=== PATIENT | male | born 1960 | race Caucasian/White ===

== ENCOUNTER 2019-06-06 13:52 | Inpatient (IN) | payer OTHER, SELFPAY ==
[2019-06-06] VITALS (22 sets, daily range): BP systolic 96–129; BP diastolic 51–97; PULSE 28–102; RESP 15–103; TEMP 36.3–36.8; O2SAT 86–98; BMI 28.8; BMI 27.1; BMI 27.2
--- NOTE | 2019-06-06 13:57 | EKG12_ITS ---
Test Reason : SOB/SKIAGRAPHER Blood Pressure : / mmHG Vent. Rate : 102 BPM Atrial Rate : 102 BPM P-R Int : 140 ms QRS Dur : 096 ms QT Int : 386 ms P-R-T Axes : 029 028 009 degrees QTc Int : 503 ms Sinus tachycardia with Premature supraventricular complexes Nonspecific ST abnormality Abnormal ECG Confirmed by PASCUAL HENLEY, JOMAR ([id number]), web editor JOSE LUNA ([id number]) on 06/12/2019 4:17:31 PM Referred By: MAHAD Confirmed By:YODIT GARNER MD
--- NOTE | 2019-06-06 14:20 | RAD_ITS ---
EXAM DESCRIPTION: PA and lateral chest CLINICAL HISTORY: 58 years Male, FEVER, FEEL TERRIBLE AND COUGH X 10 DAYS, DIZZY FEVER, FEEL TERRIBLE AND COUGH X 10 DAYS, DIZZY COMPARISON: None FINDINGS: The thorax is intact. The heart and mediastinum appear to be within normal limits. A mild patchy left perihilar infiltrate is identified and the basilar alveolar infiltrates are also seen suspicious for pneumonic infiltrates. RAD/Chest PA and Lateral IMPRESSION: Patchy alveolar infiltrate suspicious for early pneumonic infiltrates are seen in the left hilar region and both lung bases. Electronically Signed: Volodymyr Collins, at 15:35 EST Tel , Service support ,
--- NOTE | 2019-06-06 14:21 | EKG12_ITS ---
Test Reason : Blood Pressure : / mmHG Vent. Rate : 131 BPM Atrial Rate : 131 BPM P-R Int : 138 ms QRS Dur : 090 ms QT Int : 286 ms P-R-T Axes : 037 041 -21 degrees QTc Int : 422 ms Somatic/ Motion Artifact Sinus tachycardia Low Voltage QRS (Limb Leads) Nonspecific ST and T wave abnormality Abnormal ECG Confirmed by JUNIOR HENLEY, NIKKI ([id number]), editor at large HU KNIGHT ([id number]) on 06/12/2019 1:51:19 PM Referred By: ALEJO Confirmed By:NIKKI PACHECO MD
--- NOTE | 2019-06-06 14:33 | ED.RN ---
NO OLD EKG
[2019-06-06 14:40] LABS: Absolute Lymphocyte Count 1.12 X10^3/uL (0.83-4.51); Absolute Neutrophil Count 6.6 X10^3/uL (2.0-7.7); Basophil# 0.02 X10^3/uL; Basophil% 0.2 % (0-1); Eosinophil# 0.04 X10^3/uL; Eosinophils% 0.5 % (0-5); Hematocrit 37.7 % (40-54); Hemoglobin 13.5 g/dL (13.0-16.5); Lymphocyte # 1.12 X10^3/ul (4.0); Lymphocyte % 13.6 % (19-41); Mean Corp Hgb Conc 35.8 g/dL (32-36); Mean Corpuscular Hgb 42.6 pg (27.0-32.0); Mean Corpuscular Volume 118.9 fL (80-94); Mean Platelet Vol. 10.2 fl (6.2-12.0); Monocyte# 0.36 X10^3/uL; Monocyte% 4.4 % (0-10); NRBC Flagged by Analyzer 0 % (0-5); Neutrophil # 6.56 X10^3/uL (2.7-7.7); POSITIVE COUNT YES; POSITIVE MORPHOLOGY YES; RBC Distribution Width CV 12.4 % (11.6-14.6); RBC Distribution Width SD 55.4 fl (35.1-43.9); Red Blood Count 3.17 M/mm3 (4.6-6.2); White Blood Count 8.2 K/mm3 (4.4-11.0)
[2019-06-06] MEDS: 0.9% Normal Saline 1,000 ML 999 ML IV (14:40)
[2019-06-06] MEDS: Ceftriaxone 1 GM/50 ML BAG IV (14:40)
[2019-06-06 14:43] LABS: International Normalized Ratio 1.1; Prothrombin Time (Protime)PT. 14.3 SECONDS (11.7-14.9)
[2019-06-06 14:44] LABS: Partial Thromboplast Time 38.7 Seconds (24.1-36.2)
[2019-06-06 14:52] LABS: ALB/GLOB Ratio 0.5 RATIO (0.9-2.4); AST(SGOT) 76 U/L (15-37); Alanine Aminotransfer ALT/SGPT 73 U/L (16-61); Albumin, Serum 2.8 g/dL (3.2-5.0); Alkaline Phosphatase 143 U/L (45-117); Anion Gap 11 (5-15); BUN 126 mg/dL (7-18); BUN/Creat Ratio 22.1 RATIO (10-20); Calcium,Total 9.4 mg/dL (8.5-10.1); Chloride 101 mmol/L (98-107); Creatinine, Serum 5.71 mg/dL (0.70-1.30); EST Glomerular Filtration Rate 11 mL/min (>60); Est Glom Filt Rate - Afr Amer 13 mL/min (>60); Estimated Creatinine Clearance 16.13 ml/min; Globulin 5.3 g/dL (2.2-4.2); Glucose 132 mg/dL (74-106); Potassium 2.9 mmol/L (3.5-5.1); Protein, Total 8.1 g/dL (6.4-8.2); Sodium Level 133 mmol/L (136-145)
[2019-06-06 14:55] LABS: Differential Indicated SCAN CRITERIA MET; Platelet Count 795 K/mm3 (150-450)
--- NOTE | 2019-06-06 15:06 | ED.DCSUM_ITS ---
History of Present Illness Chief Complaint: Shortness of Breath Detail of Chief Complaint: Cough, not feeling well, diarrhea Informant: Patient, - - Patient was a rapid response and pulse ox was 85%. Onset: Days Context: Sudden Onset Timing: Continuous Quality: Respiratory symptoms, diarrhea, feeling poorly Location: Generalized Current Severity: Severe Maximum Severity: Severe Worsened by: Standing, walking Relieved by: Nothing Associated Symptoms: Subjective fever with chills, feeling cold and discoloration of his skin Narrative: Patient is a middle-age male who was seen by his primary care physician Dr. Joiner on Monday, June 03. He was prescribed doxycycline for respiratory infection. He subsequently developed diarrhea. He states he has profuse diarrhea. He also complains of lightheadedness, thirst and dry mouth. He has not noted any mucus or blood in his stool. The stool is not black or maroon in color. He is not on an anticoagulant. He does have history of hypertension and some type of leukemia . I was informed by patient's nurse at 1510 that he has not had diarrhea for 2 weeks. Of note patient is disoriented and confused. Prior similar symptoms: No Recent Illness/Hospitalization: Yes - Past Medical History (1) Thrombocytosis Status: Acute (2) Benign essential hypertension Status: Chronic (3) Polycythemia vera Status: Chronic Past Medical History - Allergies and Home Meds Allergies/Adverse Reactions: Allergies No Known Allergies Allergy (Verified 06/06/19 13:55) Primary Care Physician: PRINCE JOINER [Other] Prior records reviewed: Yes Surgical History: noncontributory Lives: Alone Smoking Status: Never smoker Alcohol: None Drugs: None Review of Systems General: Reports: Chills, Fever, Malaise, Sweats. Denies: Subjective, Weight loss Eyes: Denies: Visual changes - bilaterally, Blurred Vision - bilaterally, Diplopia ENT: Reports: Bilateral ear pain. Denies: Rhinorrhea, Sore throat Cardiovascular: Denies: Chest pain, Palpitations Respiratory: Reports: Dyspnea, Cough, Dyspnea on exertion Gastrointestinal: Reports: Abdominal pain, Nausea, Diarrhea Genitourinary: Denies: Dysuria, Hematuria, Frequency Musculoskeletal: Reports: Myalgias, Arthralgias. Denies: Neck pain, Back pain, Swelling, Extremity Pain Skin: Reports: Rash, Wounds Neurological: Reports: Headache, Weakness. Denies: Parasthesia, Numbness Psych: Reports: Depression, Anxiety Endocrine: Denies: Polyuria, Polydipsia Hematologic: Denies: Easy bruising, Easy bleeding Allergy: Denies: Uticaria, Swelling of the mouth Physical Exam Vital Signs/Narrative: Vital Signs Temp Pulse Resp BP Pulse Ox 06/06/19 14:35 97.4 F L 06/06/19 14:34 96 20 H 96/65 94 06/06/19 14:33 94 06/06/19 13:59 97.6 F L 100 22 H 129/68 H 91 06/06/19 13:53 97.6 F L 28 L 103 H 129/68 H 86 Inital Vital Signs reviewed: Yes General: Well nourished, Well developed, Unkempt Head: Normocephalic, Atraumatic Eyes: Perrl, EOMI. Negative for: Pale conjunctiva, Scleral icterus ENT: No rhinorrhea, TM's clear, Dry mucous membranes Neck: Supple, Nontender, No lymphadenopathy, No JVD Cardiovascular: Regular rhythm, No murmurs, Normal S1, Normal S2, Tachycardia Respiratory: Rales. Negative for: No distress, CTA bilaterally Abdomen: Soft, Nontender, Nondistended, Normal bowel sounds Rectal: Deferred Back: Negative for: Nontender, Normal Inspection Extremities: Nontender, No edema Skin: Normal color, Cyanosis - There is evidence of acrocyanosis, Rash - Patient is mottled with delayed capillary refill. Negative for: No rash Neurological: Cranial nerves II-XII grossly intact, Normal Strength, Normal Sensation. Negative for: Alert, Oriented x3 Psychological: Normal affect Diagnostic/Tx/Re-eval Chest X-Ray - ED: 2 View, Read by ED Physician, Normal, Heart, Bony Structures, Right Infiltrate, Left Infiltrate Impressions Chest X-Ray 06/06/19 14:20 IMPRESSION: Patchy alveolar infiltrate suspicious for early pneumonic infiltrates are seen in the left hilar region and both lung bases. Electronically Signed: Volodymyr Collins, at 15:35 EST Tel , Service support , 06/06/19 14:20 Chest PA and Lateral [RAD] Stat Laboratory Results 06/06/19 06/06/1906/06/20 14:00 14:00 14:00 WBC 8.2 RBC 3.17 L Hgb 13.5 Hct 37.7 L MCV 118.9 H MCH 42.6 H MCHC 35.8 RDW Std Deviation 55.4 H RDW Coeff of Jimmy 12.4 Plt Count 795 H* MPV 10.2 Immature Gran % (Auto) 1.300 H Neut % (Auto) 80.0 H Lymph % (Auto) 13.6 L Person % (Auto) 4.4 Eos % (Auto) 0.5 Baso % (Auto) 0.2 Absolute Neuts (auto) 6.6 Absolute Lymphs (auto) 1.12 Nucleated RBC % 0 Differential Comment SCANNED Diff Path Review May foll Reactive Lymphocytes 2+ Platelet Estimate MKD INC PT 14.3 INR 1.1 APTT 38.7 H Sodium 133 L Potassium 2.9 L Chloride 101 Carbon Dioxide 21.0 Anion Gap 11 BUN 126 H* Creatinine 5.71 H Estim Creat Clear Calc 16.13 Est GFR (MDRD) Af Amer 13 L Est GFR (MDRD) Non-Af 11 L BUN/Creatinine Ratio 22.1 H Glucose 132 H Lactic Acid Calcium 9.4 Total Bilirubin 1.40 H AST 76 H ALT 73 H Alkaline Phosphatase 143 H Total Protein 8.1 Albumin 2.8 L Globulin 5.3 H Albumin/Globulin Ratio 0.5 L 06/06/19 14:00 WBC RBC Hgb Hct MCV MCH MCHC RDW Std Deviation RDW Coeff of Jimmy Plt Count MPV Immature Gran % (Auto) Neut % (Auto) Lymph % (Auto) Person % (Auto) Eos % (Auto) Baso % (Auto) Absolute Neuts (auto) Absolute Lymphs (auto) Nucleated RBC % Differential Comment Diff Path Review Reactive Lymphocytes Platelet Estimate PT INR APTT Sodium Potassium Chloride Carbon Dioxide Anion Gap BUN Creatinine Estim Creat Clear Calc Est GFR (MDRD) Af Amer Est GFR (MDRD) Non-Af BUN/Creatinine Ratio Glucose Lactic Acid 3.0 H* Calcium Total Bilirubin AST ALT Alkaline Phosphatase Total Protein Albumin Globulin Albumin/Globulin Ratio Weight is pending at time of this addendum. Patient has severe sepsis secondary to bilateral pneumonia with acute renal failure. He will receive 2 L of normal saline. He has received antibiotics. - Rhythm Strip Rhythm Strip: Sinus Tach Rate: 114 Ectopy: None - EKG Initial EKG Interpretation: Sinus Tachycardia - Tachycardia with ventricular rate of 102. OR interval 140 ms. QS duration 96 ms. QT duration 386 ms. [place] normal. There is artifact which computer is reading is an ossific ST-T wave changes. - Medical Decision Making Patient is tachycardic hypoxic with abnormal respiratory sounds concerned he has sepsis. Sepsis work-up was undertaken. He was given a dose of Rocephin that will cover respiratory pathogens. There is a discrepancy when he last had a loose watery stool. Because he is on IV antibiotics one needs to consider pseudomembranous colitis. Lactate is elevated. Electrolytes are abnormal. Patient has a BUN of 137 with a creatinine of 5 0.71. This reveals acute renal injury. Did receive 1 L of normal saline wide open. His systolic pressure is greater than 90 and his map is greater than 65 and reason he did not initially receive 30 cc/kg of normal saline. - Critical Care Time Critical care time (excluding procedures): 30-74 minutes, Discussing w/Patient &/or Family/Handicapped Teacher, Discussing w/Consultants, Arranging Admission or Transfer - Critical care time 33 minutes ED Disposition - Plan for ED Patient: Disposition: Acute Care Hospital [facility] Diagnosis: Severe sepsis, Hypoxia, Acute renal failure (ARF), Community acquired pneumonia, Bronchospasm, acute, Bilateral pneumonia, Diarrhea Referrals: PRINCE JOINER [Other]
[2019-06-06 15:07] LABS: Differential Comment SCANNED; Reactive Lymphocyte 2+
[2019-06-06 15:08] LABS: Platelet Estimate MKD INC (ADEQ)
[2019-06-06] MEDS: 0.9% Normal Saline 1,000 ML 1000 ML IV (16:16)
--- NOTE | 2019-06-06 16:35 | HP.PCM_ITS ---
Problem List (1) Acute respiratory failure with hypoxia Status: Acute (2) Bilateral pneumonia Status: Acute Qualifiers: Pneumonia type: due to unspecified organism Lung location: unspecified part of lung Qualified Code(s): J18.9 - Pneumonia, unspecified organism (3) Severe sepsis Status: Acute (4) Acute renal failure (ARF) Status: Acute Qualifiers: Acute renal failure type: unspecified Qualified Code(s): N17.9 - Acute kidney failure, unspecified (5) Diarrhea Status: Acute Qualifiers: Diarrhea type: unspecified type Qualified Code(s): R19.7 - Diarrhea, unsp ecified (6) Benign essential hypertension Status: Chronic History of Present Illness Date of Admission: 06/06/19 Chief Complaint: Dyspnea, cough, fatigue, malaise, diarrhea x 1.5 The patient is a 58 y/o M w/ PMHx: Chronic COPD, HTN, Thrombocytosis, GERD, Hx Nephrolithiasis who presents to the [facility] ED on 06/06/19 with history of approximately 1.5 weeks of ongoing frequent diarrhea up to 6 times daily with no associated abdominal cramping or pain in addition to progressively worsening fat igue, malaise, dyspnea, worse with exertion, cough although not markedly productive with subjective fevers and chills as well as myalgias and arthralgias prompting him to present to the hospital for evaluation however initially while attempting to get to the ED became extremely dyspneic with rapid response called and patient noted to be markedly hypoxic into the low 80s with immediate transport to the ED for evaluation. Work-up in the ED included T 97.6, heart rate 100, BP 129/68, respiratory rate 22, initially 86% on room air with improvement to 91% on 2 L nasal cannula, CBC with with WBC 8.2, hemoglobin 13.5, platelets 795 with left shift, elevated PTT 38.7 otherwise coags normal, CMP with sodium 133, potassium 2.9, BUN/creatinine 126/5.71, glucose 132, lactic acid initially 3, total bilirubin 1.4, AST/ALT 76/73, alk phos 143, requested but pending urinalysis and evaluation of patient, chest x-ray with patchy alveolar infiltrates suspicious for early pneumonic infiltrates in the left hilar region in both lungs, culture x2 obtained and pending per ED, urine culture x1 obtained per ED. in the ED patient ministered Rocephin, azithromycin, normal saline. Past Medical History Past Medical History (Chronic Problems): Chronic Problems Polycythemia vera (Chronic) Benign essential hypertension (Chronic) Allergies No Known Allergies Allergy (Verified 06/06/19 13:55) Home Medications: Ambulatory Orders Medication Instructions Recorded Hydroxyurea [Hydrea] 1,500 mg PO DAILY 05/11/13 Amlodipine [Norvasc] 10 mg PO DAILY 06/06/19 Benzonatate 200 mg PO TID PRN PRN 06/06/19 Doxycycline Hyclate 100 mg PO BID 06/06/19 Fluticasone/Umeclidin/Vilanter 1 ea IH DAILY 06/06/19 [Trelegy Ellipta 100-62.5-25] Lisinopril/Hydrochlorothiazide 1 tab PO DAILY 06/06/19 [Lisinopril-Hctz 20-12.5 mg Tab] Surgical History: - - Neck surgery, tonsillectomy. Psychiatric History: No pertinent psych hx Lives: Alone Smoking Status: Never smoker Tobacco Use: Non-smoker Alcohol: None Drugs: None - *Family History Maternal History Items: - - Patient notes a maternal family history of dementia. Paternal History Items: - - Patient notes a significant paternal family history of several strokes with a near bedbound status and complications related. Review of Systems Constitutional: Reports: Anorexia, Chills, Fever, Malaise, Weakness, Fatigue. Denies: Weight Change HEENT: Denies: Head Aches, Sinus Congestion, Sinus Drainage Cardiovascular: Denies: Chest Pain, Palpitations Respiratory: Reports: Cough, Shortness of Breath, Shortness of breath at rest, Shortness of breath upon exertion, Sputum production. Denies: Wheezing Gastrointestinal: Reports: Diarrhea, Nausea. Denies: Abdominal Pain, Vomiting Genitourinary: Denies: Dysuria Musculoskeletal: Reports: Joint Pain, Muscle pain. Denies: Joint Tenderness Skin: Denies: Rash, Wounds Neurological: Denies: Numbness, Tingling, Focal weakness Psychiatric: Denies: Anxiety, Depression, Homicidal Ideations, Suicidal Ideations Hematologic/ Lymphatic: Denies: Easy Bruising, Easy Bleeding VTE Information - Inpt Only VTE Present on Admission: No VTE Mechan Device Prophylaxis: SCD's VTE Pharm Prophylaxis ordered?: Yes Patient Problems: Active and Suspected Problems Thrombocytosis (Acute) Severe sepsis (Acute) Hypoxia (Acute) Acute renal failure (ARF) (Acute) Community acquired pneumonia (Acute) Bronchospasm, acute (Acute) Bilateral pneumonia (Acute) Diarrhea (Acute) Acute respiratory failure with hypoxia (Acute) Subjective: Laying in the ED bed, significantly ill and fatigued appearing. Objective: Physical Examination: General: awake, alert, oriented x 3, remains cooperative, seated upright in the ED bed, fatigued and ill-appearing. Skin: normal color, turgor, no icterus, cyanosis. HEENT: AT/NC, EOMI, PERRLA, dry MM, no carotid bruits or JVD noted. Lungs: Diffusely diminished breath sounds, coarse and rhonchorous, greater bases, increased effort, no obvious wheezing or rales. Heart: Tachycardic with regular rhythm; no gallop, rub audible. Abdomen: soft, NTTP, ND, normal BS, no HSM. Extremities: no cyanosis, clubbing, or edema. Neurological: patient awake, alert, oriented x 3; cognitive function intact; pupils equally reactive to light and accomodation; cranial nerves II-XII grossly normal, moving all 4 extremities, no focal deficits, strength severely globally Cece secondary to acute presentation. Psychiatric: affect appears fatigued, ill, no acute evidence of depressive or anxiety feelings. - Physical Exam Vitals/I&O's: Vital Signs Temp Pulse Resp BP Pulse Ox 98.2 F 93 21 H 103/63 93 06/06/19 16:00 06/06/19 16:00 06/06/19 16:00 06/06/19 16:00 06/06/19 16:00 Oxygen Flow Rate (L/min) 2 Oxygen Delivery Method Nasal Cannula Weight: 218 lb 11.177 oz Body Mass Index (BMI) 28.8 Intake and Output for Last 24 Hours 06/04/19 06/05/19 06/06/19 23:59 23:59 23:59 Intake Total 1050 / 1050 Balance 1050 / 1050 Laboratory Results 06/06/19 14:00: WBC 8.2, RBC 3.17 L, Hgb 13.5, Hct 37.7 L, MCV 118.9 H, MCH 42.6 H, MCHC 35.8, RDW Std Deviation 55.4 H, RDW Coeff of Jimmy 12.4, Plt Count 795 H*, MPV 10.2, Immature Gran % (Auto) 1.300 H, Neut % (Auto) 80.0 H, Lymph % (Auto) 13.6 L, [place] % (Auto) 4.4, Eos % (Auto) 0.5, Baso % (Auto) 0.2, Absolute Neuts (auto) 6.6, Absolute Lymphs (auto) 1.12, Nucleated RBC % 0, Differential Comment SCANNED, Diff Path Review May foll, Reactive Lymphocytes 2+, Platelet Estimate MKD INC 06/06/19 14:00: PT 14.3, INR 1.1, APTT 38.7 H 06/06/19 14:00: Sodium 133 L, Potassium 2.9 L, Chloride 101, Carbon Dioxide 21.0, Anion Gap 11, BUN 126 H*, Creatinine 5.71 H, Estim Creat Clear Calc 16.13, Est GFR (MDRD) Af Amer 13 L, Est GFR (MDRD) Non-Af 11 L, BUN/Creatinine Ratio 22.1 H, Glucose 132 H, Calcium 9.4, Total Bilirubin 1.40 H, AST 76 H, ALT 73 H, Alkaline Phosphatase 143 H, Total Protein 8.1, Albumin 2.8 L, Globulin 5.3 H, Albumin/Globulin Ratio 0.5 L 06/06/19 14:00: Lactic Acid 3.0 H* Current Medications Sodium Chloride () 1,000 mls @ 1,000 mls/hr IV .Q1H ONE Stop: 06/06/19 16:41 Last Admin: 06/06/19 16:16 Dose: 1,000 mls/hr Documented by: Azithromycin 500 mg/ Dextrose 255 mls @ 250 mls/hr IV X1 ONE Stop: 06/06/19 16:48 Last Admin: 06/06/19 16:12 Dose: 250 mls/hr Documented by: Assessment/Plan All Active Problems Thrombocytosis (Acute) Severe sepsis (Acute) Hypoxia (Acute) Acute renal failure (ARF) (Acute) Community acquired pneumonia (Acute) Bronchospasm, acute (Acute) Bilateral pneumonia (Acute) Diarrhea (Acute) Acute respiratory failure with hypoxia (Acute) The patient is a 58 y/o M w/ PMHx: Chronic COPD, HTN, Thrombocytosis, GERD, Hx Nephrolithiasis who presents to the [facility] ED on 06/06/19 with history of approximately 1.5 weeks of ongoing frequent diarrhea up to 6 times daily with no associated abdominal cramping or pain in addition to progressively worsening fatigue, malaise, dyspnea, worse with exertion, cough although not markedly productive with subjective fevers and chills as well as myalgias and arthralgias prompting him to present to the hospital for evaluation however initially while attempting to get to the ED became extremely dyspneic with rapid response called and patient noted to be markedly hypoxic into the low 80s with immediate transport to the ED for evaluation. 1. Acute Encephalopathy secondary to Acute Hypoxic Respiratory Failure secondary to Acute BL Pneumonia and concurrent Diarrhea, Unclear Etiology: Work- up in the ED included T 97.6, heart rate 100, BP 129/68, respiratory rate 22, initially 86% on room air with improvement to 91% on 2 L nasal cannula, CBC with with WBC 8.2, hemoglobin 13.5, platelets 795 with left shift, elevated PTT 38.7 otherwise coags normal, CMP with sodium 133, potassium 2.9, BUN/creatinine 126/5.71, glucose 132, lactic acid initially 3, total bilirubin 1.4, AST/ALT 76/73, alk phos 143, requested but pending urinalysis and evaluation of patient, chest x-ray with patchy alveolar infiltrates suspicious for early pneumonic infiltrates in the left hilar region in both lungs, culture x2 obtained and pending per ED, urine culture x1 obtained per ED. will admit patient to the ICU, will request electric motor controls assembler consultation, maintain on oxygen with wean as tolerated to room air, continue ATC duonebs, PRN albuterol, transition given severity of appearance to IV Zosyn and Vancomycin with MRSA screen and if negative de- escalate off vancomycin, HOB, IS parameters w/ pending sputum cultures and respiratory viral panel and urine antigens. Given concurrent severe ongoing diarrhea will obtain stool culture, C. difficile assay concurrently. If culture and assay negative would initiate antidiarrheal regimen given severity of GI losses with severe [place] as noted. Bld Cx x 2 pending per ED. 2. Acute kidney injury: Secondary to recent significant GI losses with ongoing severe diarrhea, poor intake, acute presentation with #1, admission BUN/Cr 126/5.71, prior baseline creatinine noted to be 1.2. Will hydrate, hold nephrotoxic medications and repeat chemistry in AM. In severity will obtain FeNa assessment, renal ultrasound and request nephrology consultation. 3. Hypokalemia: Admission K+ 2.9, supplementation given, repeat level in AM, magnesium requested. 4. Hyponatremia, mild, bulimic: Admission sodium 133, secondary likely to poor intake and GI losses, continue aggressive hydration with repeat CMP in a.m. 5. Elevated LFTs, bilirubin unclear etiology: Admission total bilirubin 1.40, AST/ALT 76/73, alk phos 143, suspect secondary to #1, #2, continue to hydrate, repeat CMP in a.m. 6. Chronic COPD: We will hold patient Trelegy and transition to as noted PRN albuterol and scheduled DuoNeb therapies, continue head of bed, I-S, oxygen supplementation with wean as tolerated as noted for #1 presentation. Patient with no significant wheezing upon evaluation therefore steroids not added but if concern arises for acute on chronic COPD exacerbation may add. 7. Chronic thrombocytosis: Admission platelets 795, prior baseline appears 500- 700 range, similar, continue to trend, continue Hydrea regimen. 8. Hypertension: Continue home regimen including Norvasc, holding patient lisinopril and hydrochlorothiazide given acute kidney injury, PRN hydralazine. 9. DVT prophylaxis: SCDs, heparin. 10. CODE status: Patient does not have a healthcare power of lecturer of portuguese nor living will. Discussed CODE status at length including difference between FULL code, DNR-CCA and DNR-CC status. Following discussions about the differences in these status, requested full CODE STATUS. Advanced Care Planning Face to Face Time: 16 minutes. Code Visit Inpatient E&M: 57842 Init Hosp L3 Procedures: 56415 Advncd Care Plan 30 Min
[2019-06-06 17:57] LABS: Mucous, Urine 0 SEEN /hpf (<or=2+); Squamous Epithelial Cells - UA 0 SEEN /hpf (0-5)
[2019-06-06 18:16] LABS: Color, Urine Yellow (Yellow); Glucose, Dipstick Normal (Normal); Ketone-Dipstick 5 mg/dl (Negative); Leukocyte Esterase-Dipstick Negative /ul (Negative); Nitrite-Dipstick Negative (Negative); Occult Blood-Urine 10 /ul (Negative); Protein-Dipstick 15 mg/dl (Negative); Urine Bilirubin Dipstick Negative (Negative); Urine Clarity Sl. Cloudy (Clear); Urine Urobilinogen Normal (Normal)
[2019-06-06 18:28] LABS: Bacteria 1+ /hpf (None Seen); Red Blood Cells-Urine 0-5 SEEN /hpf (0-5); White Blood Cells 0-5 SEEN /hpf (0-5)
[2019-06-06 18:29] LABS: Reflex Lactate? Y
[2019-06-06 19:21] LABS: Lactic Acid 1.3 mmol/L (0.4-1.9)
--- NOTE | 2019-06-06 19:47 | US_ITS ---
STUDY: RENAL ULTRASOUND - COMPLETE REASON FOR EXAM: Male, 58 years old. SH[place]NEE TECHNIQUE: Ultrasound evaluation of the kidneys was performed with real-time and static chandler-scale imaging. COMPARISON: None. FINDINGS: RIGHT KIDNEY: Normal location of the right kidney, which is normal in size. The right kidney measures 12.0 x 4.8 x 5.3 cm. There is a normal cortex of the right kidney. The renal cortex measures 1.2 cm. There is no right renal mass or cyst. There are no right renal calculi. There is no right hydronephrosis. DISTAL RIGHT URETER: There is non-visualization of the distal right ureter. There is no demonstrated right ureterovesical junction calculus. There is a visualized right ureteral jet. LEFT KIDNEY: Normal location of the left kidney, which is normal in size. The left kidney measures 10.8 x 4.4 x 5.9 cm. There is a normal cortex of the left kidney. The renal cortex measures 1.5 cm. There is no left renal mass or cyst. There are no left renal calculi. There is no left hydronephrosis. DISTAL LEFT URETER: There is non-visualization of the distal left ureter. There is no demonstrated left ureterovesical junction calculus. There is a visualized left ureteral jet. BLADDER: The distended urinary bladder has a volume of 123 ml. . There is a normal wall thickness of the distended urinary bladder. Bladder wall thickness is 4 mm. There is no demonstrated mass within the urinary bladder. There are no demonstrated bladder calculi. US/Kidney and Bladder IMPRESSION: Normal ultrasound of the kidneys and urinary bladder. Electronically Signed: Abdifatah Moreira MD at 21:17 EST , Service support ,
[2019-06-06 20:16] LABS: Magnesium 2.7 mg/dL (1.6-2.6); Phosphorus 3.9 mg/dL (2.5-4.9)
[2019-06-06 20:41] LABS: Urine Sodium 63 mmol/L (Not Establ.)
[2019-06-06] MEDS: 0.9% Normal Saline 1,000 ML 150 ML IV (21:57)
[2019-06-06] MEDS: Heparin Injection (Vial) 5,000 UNIT/ML VIAL 5000 UNIT SC (21:57)
[2019-06-06 22:21] LABS: M R Staph aureus DNA By PCR Negative (Negative); Probe Check PASS; Specimen Processing Control PASS
[2019-06-07] VITALS (43 sets, daily range): BP systolic 68–120; BP diastolic 31–87; PULSE 71–100; RESP 15–27; TEMP 36.4–37.1; O2SAT 22–99
[2019-06-07] MEDS: 0.9% Normal Saline 1,000 ML 999 ML IV (03:35)
[2019-06-07 04:20] LABS: Absolute Lymphocyte Count 0.51 X10^3/uL (0.83-4.51); Absolute Neutrophil Count 3.1 X10^3/uL (2.0-7.7); Basophil# 0.01 X10^3/uL; Basophil% 0.3 % (0-1); Eosinophil# 0.04 X10^3/uL; Lymphocyte # 0.51 X10^3/ul (4.0); Lymphocyte % 12.8 % (19-41); Mean Corpuscular Hgb 44.8 pg (27.0-32.0); Mean Corpuscular Volume 121.1 fL (80-94); Mean Platelet Vol. 9.8 fl (6.2-12.0); Monocyte# 0.23 X10^3/uL; Monocyte% 5.8 % (0-10); NRBC Flagged by Analyzer 0 % (0-5); Neutrophil # 3.11 X10^3/uL (2.7-7.7); Neutrophil % 78.1 % (47-70); POSITIVE DIFFERENTIAL YES; POSITIVE MORPHOLOGY YES; RBC Distribution Width CV 12.4 % (11.6-14.6); RBC Distribution Width SD 55.1 fl (35.1-43.9); Red Blood Count 2.23 M/mm3 (4.6-6.2)
[2019-06-07 04:31] LABS: Differential Indicated SCAN CRITERIA MET
[2019-06-07 04:45] LABS: ALB/GLOB Ratio 0.5 RATIO (0.9-2.4); AST(SGOT) 42 U/L (15-37); Alanine Aminotransfer ALT/SGPT 49 U/L (16-61); Alkaline Phosphatase 102 U/L (45-117); Anion Gap 10 (5-15); BUN 98 mg/dL (7-18); BUN/Creat Ratio 29.9 RATIO (10-20); Calcium,Total 7.7 mg/dL (8.5-10.1); Chloride 109 mmol/L (98-107); Creatinine, Serum 3.28 mg/dL (0.70-1.30); EST Glomerular Filtration Rate 21 mL/min (>60); Est Glom Filt Rate - Afr Amer 25 mL/min (>60); Estimated Creatinine Clearance 28.08 ml/min; Glucose 97 mg/dL (74-106); Potassium 3.4 mmol/L (3.5-5.1); Sodium Level 139 mmol/L (136-145)
[2019-06-07 04:51] LABS: Differential Comment SCANNED; Hypochromasia 1+; Platelet Estimate MOD INC (ADEQ)
[2019-06-07 04:52] LABS: Macrocytosis 1+
[2019-06-07] MEDS: 0.9% Normal Saline 1,000 ML 150 ML IV (05:34)
[2019-06-07] MEDS: 0.9% Saline Lock 10 ML Syringe IV ×2 (05:35→22:47)
--- NOTE | 2019-06-07 05:55 | RAD_ITS ---
HISTORY: dyspnea ADDITIONAL HISTORY: None provided. TECHNIQUE: Frontal chest radiograph. Number of images including paperwork: 1 COMPARISON: 06/06/2019 FINDINGS: LUNGS AND PLEURA: Minimal change in left mid to lower lung and right basilar opacities. Blunting of the costophrenic angle may represent small pleural effusions. CARDIAC SILHOUETTE: Stable. MEDIASTINUM AND WALE: Stable. UPPER ABDOMEN: Unremarkable. SKELETON AND SOFT TISSUES: No acute findings. OTHER DEVICES AND HARDWARE: None. RAD/Chest 1 View (Portable) IMPRESSION: Minimal change in bilateral infiltrates. at 0557 Reported and signed by: Nini Irwin MD Electronically Signed: Nini Irwin MD at 5:57 EST Tel , Service support ,
--- NOTE | 2019-06-07 06:44 | PCM.CON.CC ---
Reason for Consult Date of Consultation: 06/07/19 Reason for Consultation: Severe sepsis History of Present Illness: The patient is a 58-year-old male, with a history as outlined below, who presented to the emergency department on June 06 with complaints of shortness of breath, cough, diarrhea and hypoxemia. His symptoms have been present for approximately 5 days prior to arrival to the emergency department. The patient does have an underlying baseline myeloproliferative disorder. He is a lifelong non-smoker. Prior to this week, the patient did have normal bowel movements. He denies any dysuria or urinary frequency. The patient does report that during the time this week that he was having diarrhea, he had been started on antibiotics by his primary care provider. On presentation to the emergency department, the patient was initially noted to be afebrile, tachycardic and tachypneic. He was saturating 86% on room air. Laboratory evaluation revealed no evidence of a leukocytosis. Platelet count was elevated to 795,000. Chemistry profile revealed a sodium of 133, potassium of 2.9, BUN of 126 and creatinine of 5.71. Lactate was elevated to 3.0. Total bili, AST, ALT and alkaline phosphatase were all increased. UA was unremarkable. Chest x-ray revealed evidence of bibasilar airspace disease. The patient received supplemental IV fluid hydration and was started on broad-spectrum antimicrobial coverage. He was then transferred to the medical intensive care unit for further management. Overnight, despite having received 3 L of supplemental IV fluids, the patient did have to be started on Levophed this morning to maintain hemodynamic stability. Past Medical History Past Medical History (Chronic Problems): Chronic Problems Polycythemia vera (Chronic) Benign essential hypertension (Chronic) Allergies No Known Allergies Allergy (Verified 06/06/19 13:55) Home Medications: Ambulatory Orders Medication Instructions Recorded Hydroxyurea [Hydrea] 1,500 mg PO DAILY 05/11/13 Amlodipine [Norvasc] 10 mg PO DAILY 06/06/19 Benzonatate 200 mg PO TID PRN PRN 06/06/19 Doxycycline Hyclate 100 mg PO BID 06/06/19 Fluticasone/Umeclidin/Vilanter 1 ea IH DAILY 06/06/19 [Trelegy Ellipta 100-62.5-25] Lisinopril/Hydrochlorothiazide 1 tab PO DAILY 02/27/20 [Lisinopril-Hctz 20-12.5 mg Tab] Surgical History: - - Neck surgery, tonsillectomy. Psychiatric History: No pertinent psych hx Lives: Alone Smoking Status: Never smoker Tobacco Use: Non-smoker Alcohol: None Drugs: None - *Family History Maternal History Items: - - Patient notes a maternal family history of dementia. Paternal History Items: - - Patient notes a significant paternal family history of several strokes with a near bedbound status and complications related. Review of Systems Constitutional: Reports: Chills, Fever, Malaise, Fatigue Eyes: Denies: Blurred vision, Double vision HEENT: Denies: Head Aches, Sinus Congestion, Sinus Drainage Cardiovascular: Denies: Chest Pain, Palpitations Respiratory: Reports: Cough, Shortness of Breath. Denies: Sputum production Gastrointestinal: Reports: Diarrhea Genitourinary: Denies: Dysuria, Frequency Musculoskeletal: Denies: Joint Pain, Joint Tenderness Skin: Denies: Rash, Wounds Neurological: Denies: Numbness, Tingling, Focal weakness Psychiatric: Denies: Anxiety, Depression, Homicidal Ideations, Suicidal Ideations Hematologic/ Lymphatic: Denies: Easy Bruising, Easy Bleeding Patient Problems: Active and Suspected Problems Thrombocytosis (Acute) Severe sepsis (Acute) Hypoxia (Acute) Acute renal failure (ARF) (Acute) Community acquired pneumonia (Acute) Bronchospasm, acute (Acute) Bilateral pneumonia (Acute) Diarrhea (Acute) Acute respiratory failure with hypoxia (Acute) Objective: The patient's most recent lab work, culture data and imaging studies have all been personally reviewed. Strep and urine Legionella antigens were negative. Respiratory viral panel is pending. Blood and urine cultures are pending. - Physical Exam Vitals/I&O's: Vital Signs Temp Pulse Resp BP Pulse Ox 97.5 F L 76 21 H 91/42 L 22 06/07/19 04:00 06/07/19 06:15 06/07/19 06:00 06/07/19 06:15 06/07/19 06:00 Oxygen Flow Rate (L/min) 2 Oxygen Delivery Method Nasal Cannula Weight: 205 lb 14.588 oz Body Mass Index (BMI) 27.1 Intake and Output for Last 24 Hours 06/05/19 06/06/19 06/07/19 23:59 23:59 23:59 Intake Total 2305 / 2655 2993 / 2993 Output Total 1175 / 1175 Balance 2305 / 2205 1818 / 1818 General: Alert, Oriented x3, Cooperative, No apparent distress HEENT: Atraumatic, PERRLA, Normocephalic Oral: No Gingival or Mucosal Lesions/ Ulcerations Neck: Supple, No Nodes, Trachea Midline Lungs: No rhonchi, No wheeze, No rales, Diminished Cardiovascular: Regular rate, Regular Rhythm, Normal S1, Normal S2, No murmurs Abdomen: Bowel Sounds Present, Soft, Non Tender Extremities: No clubbing, No cyanosis, No edema Skin: No breakdown Musculoskeletal: No Tenderness to Palpation of Joints or Extremities Lymphatic: No Cervical, Supraclavicular, or Inguinal Adenopathy Neurological: Cranial nerves II-XII grossly intact, Neuro grossly intact Psych/Mental Status: Normal Affect, Appropriate Labs (Last 48 Hours) 06/06/19 06/06/19 06/06/19 14:00 14:00 14:00 WBC 8.2 RBC 3.17 L Hgb 13.5 Hct 37.7 L MCV 118.9 H MCH 42.6 H MCHC 35.8 RDW Std Deviation 55.4 H RDW Coeff of Jimmy 12.4 Plt Count 795 H* MPV 10.2 Immature Gran % (Auto) 1.300 H Neut % (Auto) 80.0 H Lymph % (Auto) 13.6 L [place] % (Auto) 4.4 Eos % (Auto) 0.5 Baso % (Auto) 0.2 Absolute Neuts (auto) 6.6 Absolute Lymphs (auto) 1.12 Nucleated RBC % 0 Differential Comment SCANNED Diff Path Review May foll Reactive Lymphocytes 2+ Platelet Estimate MKD INC Hypochromasia Macrocytosis PT 14.3 INR 1.1 APTT 38.7 H Sodium 133 L Potassium 2.9 L Chloride 101 Carbon Dioxide 21.0 Anion Gap 11 BUN 126 H* Creatinine 5.71 H Estim Creat Clear Calc 16.13 Est GFR (MDRD) Af Amer 13 L Est GFR (MDRD) Non-Af 11 L BUN/Creatinine Ratio 22.1 H Glucose 132 H Lactic Acid Calcium 9.4 Phosphorus Magnesium Total Bilirubin 1.40 H AST 76 H ALT 73 H Alkaline Phosphatase 143 H Total Protein 8.1 Albumin 2.8 L Globulin 5.3 H Albumin/Globulin Ratio 0.5 L Urine Color Urine Clarity Urine pH Ur Specific [place] Urine Protein Urine Glucose (UA) Urine Ketones Urine Occult Blood Urine Nitrite Urine Bilirubin Urine Urobilinogen Ur Leukocyte Esterase Urine RBC Urine WBC Ur Squamous Epith Cells Urine Bacteria Urine Mucus Ur Random Sodium Urine Creatinine MRSA (PCR) 06/06/19 06/06/19 06/06/19 14:00 14:00 17:51 WBC RBC Hgb Hct MCV MCH MCHC RDW Std Deviation RDW Coeff of Jimmy Plt Count MPV Immature Gran % (Auto) Neut % (Auto) Lymph % (Auto) [place] % (Auto) Eos % (Auto) Baso % (Auto) Absolute Neuts (auto) Absolute Lymphs (auto) Nucleated RBC % Differential Comment Diff Path Review Reactive Lymphocytes Platelet Estimate Hypochromasia Macrocytosis PT INR APTT Sodium Potassium Chloride Carbon Dioxide Anion Gap BUN Creatinine Estim Creat Clear Calc Est GFR (MDRD) Af Amer Est GFR (MDRD) Non-Af BUN/Creatinine Ratio Glucose Lactic Acid 3.0 H* Calcium Phosphorus 3.9 Magnesium 2.7 H Total Bilirubin AST ALT Alkaline Phosphatase Total Protein Albumin Globulin Albumin/Globulin Ratio Urine Color Yellow Urine Clarity Sl. Cloudy Urine pH 6.0 Ur Specific [place] 1.010 Urine Protein 15 H Urine Glucose (UA) Normal Urine Ketones 5 H Urine Occult Blood 10 H Urine Nitrite Negative Urine Bilirubin Negative Urine Urobilinogen Normal Ur Leukocyte Esterase Negative Urine RBC 0-5 SEEN Urine WBC 0-5 SEEN Ur Squamous Epith Cells 0 SEEN Urine Bacteria 1+ Urine Mucus 0 SEEN Ur Random Sodium Urine Creatinine MRSA (PCR) 06/06/19 06/06/19 06/06/19 17:51 17:51 18:45 WBC RBC Hgb Hct MCV MCH MCHC RDW Std Deviation RDW Coeff of Jimmy Plt Count MPV Immature Gran % (Auto) Neut % (Auto) Lymph % (Auto) [place] % (Auto) Eos % (Auto) Baso % (Auto) Absolute Neuts (auto) Absolute Lymphs (auto) Nucleated RBC % Differential Comment Diff Path Review Reactive Lymphocytes Platelet Estimate Hypochromasia Macrocytosis PT INR APTT Sodium Potassium Chloride Carbon Dioxide Anion Gap BUN Creatinine Estim Creat Clear Calc Est GFR (MDRD) Af Amer Est GFR (MDRD) Non-Af BUN/Creatinine Ratio Glucose Lactic Acid 1.3 Calcium Phosphorus Magnesium Total Bilirubin AST ALT Alkaline Phosphatase Total Protein Albumin Globulin Albumin/Globulin Ratio Urine Color Urine Clarity Urine pH Ur Specific [place] Urine Protein Urine Glucose (UA) Urine Ketones Urine Occult Blood Urine Nitrite Urine Bilirubin Urine Urobilinogen Ur Leukocyte Esterase Urine RBC Urine WBC Ur Squamous Epith Cells Urine Bacteria Urine Mucus Ur Random Sodium 63 Urine Creatinine 90.20 MRSA (PCR) 06/06/19 06/07/19 06/07/19 20:05 03:55 03:55 WBC 4.0 L RBC 2.23 L Hgb 10.0 L Hct 27.0 L MCV 121.1 H MCH 44.8 H MCHC 37.0 H RDW Std Deviation 55.1 H RDW Coeff of Jimmy 12.4 Plt Count MPV 9.8 Immature Gran % (Auto) 2.000 H Neut % (Auto) 78.1 H Lymph % (Auto) 12.8 L [place] % (Auto) 5.8 Eos % (Auto) 1.0 Baso % (Auto) 0.3 Absolute Neuts (auto) 3.1 Absolute Lymphs (auto) 0.51 L Nucleated RBC % 0 Differential Comment SCANNED Diff Path Review May foll Reactive Lymphocytes Platelet Estimate MOD INC Hypochromasia 1+ Macrocytosis 1+ PT INR APTT Sodium 139 Potassium 3.4 L Chloride 109 H Carbon Dioxide 20.0 L Anion Gap 10 BUN 98 H Creatinine 3.28 H Estim Creat Clear Calc 28.08 Est GFR (MDRD) Af Amer 25 L Est GFR (MDRD) Non-Af 21 L BUN/Creatinine Ratio 29.9 H Glucose 97 Lactic Acid Calcium 7.7 L Phosphorus Magnesium Total Bilirubin 0.90 AST 42 H ALT 49 Alkaline Phosphatase 102 Total Protein 6.0 L Albumin 2.0 L Globulin 4.0 Albumin/Globulin Ratio 0.5 L Urine Color Urine Clarity Urine pH Ur Specific [place] Urine Protein Urine Glucose (UA) Urine Ketones Urine Occult Blood Urine Nitrite Urine Bilirubin Urine Urobilinogen Ur Leukocyte Esterase Urine RBC Urine WBC Ur Squamous Epith Cells Urine Bacteria Urine Mucus Ur Random Sodium Urine Creatinine MRSA (PCR) Negative Microbiology 06/06/19 17:51 Urine, Clean Catch Legionella Antigen - Final 06/06/19 17:51 Urine, Clean Catch Streptococcus pneumoniae Antigen (M - Final Clinical Impression(s) from Imaging Studies Chest X-Ray 06/06/19 14:20 IMPRESSION: Patchy alveolar infiltrate suspicious for early pneumonic infiltrates are seen in the left hilar region and both lung bases. Electronically Signed: Volodymyr Collins, at 15:35 EST Tel , Service support , Renal Ultrasound 06/06/19 19:47 IMPRESSION: Normal ultrasound of the kidneys and urinary bladder. Electronically Signed: Abdifatah Moreira MD at 21:17 EST , Service support , Chest X-Ray 06/07/19 05:55 IMPRESSION: Minimal change in bilateral infiltrates. at 0557 Reported and signed by: Nini Irwin MD Electronically Signed: Nini Irwin MD at 5:57 EST Tel , Service support , Current Medications Acetaminophen (Tylenol) 650 mg PO Q6H PRN PRN PRN Reason: Pain Score 1-10/Temp > 100.7 F Al Hydroxide/Mg Hydroxide (Mylanta Ii) 30 ml PO Q6H PRN PRN PRN Reason: Gastric Burning Albuterol Sulfate (Ventolin Aerosols) 2.5 mg INHALATION Q2H PRN PRN PRN Reason: SOB/Wheezing Amlodipine Besylate (Norvasc) 10 mg PO DAILY [facility] Glucagon () 1 mg IM .X1 PRN PRN Reason: Hypoglycemia Guaifenesin (Robitussin) 10 ml PO Q4H PRN PRN PRN Reason: COUGH Heparin Sodium (Porcine) (Heparin Na) 5,000 unit SC Q12 [facility] Last Admin: 06/06/19 21:57 Dose: 5,000 unit Documented by: Hydralazine HCl (Apresoline Iv) 10 mg IV Q4H PRN PRN PRN Reason: SBP > 160 Sodium Chloride () 1,000 mls @ 150 mls/hr IV .Q6H40M [facility] Last Admin: 06/07/19 05:34 Dose: 150 mls/hr Documented by: Piperacillin Sod/Tazobactam (Sod 3.375 gm/ Sodium Chloride) 50 mls @ 12.5 mls/hr IV Q12 [facility] Last Infusion: 06/07/19 02:22 Dose: Infused Documented by: Vancomycin IV Pharmacy to Dose (1 ea/ Sodium Chloride) 500 mls @ 250 mls/hr IV X1 PRN; Protocol PRN Reason: Rx to Dose Sodium Chloride () 250 mls @ 15 mls/hr IV .[id number] PRN PRN Reason: Saline Flush Last Infusion: 06/07/19 02:23 Dose: 0 mls/hr Documented by: Sodium Chloride () 250 mls @ 15 mls/hr IV .[id number] PRN PRN Reason: Additional IVPB Infusion Dextrose (Dextrose 10%-Water) 250 mls @ 999 mls/hr IV .Q16M PRN; Protocol PRN Reason: HYPOGLYCEMIA Norepinephrine Bitartrate 8 mg (/ Sodium Chloride) 250 mls @ 9.375 mls/hr CONT INF .[id number] [facility]; Protocol Last Admin: 06/07/19 06:15 Dose: 5 mcg/min, 9.4 mls/hr Documented by: Melatonin (Melatonin) 3 mg PO QHS PRN PRN PRN Reason: INSOMNIA Nitroglycerin (Nitrostat) 0.4 mg SUBLINGUAL Q5M PRN PRN Reason: CARDIAC/CHEST PAIN Ondansetron HCl (Zofran) 4 mg IV Q8H PRN PRN PRN Reason: NAUSEA/VOMITING Prochlorperazine Edisylate (Compazine Iv) 5 mg IV Q4H PRN PRN PRN Reason: Breakthrough Nausea/Vomiting Sodium Chloride () 10 - 40 ml IV UD PRN PRN Reason: SALINE FLUSH Last Admin: 06/07/19 05:35 Dose: 10 ml Documented by: Throat Lozenges (Cepacol Sore Throat Lozenge) 1 lozenge MUCOUS MEM Q2H PRN PRN PRN Reason: SORE THROAT Assessment/Plan Active and Suspected Problems Thrombocytosis (Acute) Severe sepsis (Acute) Hypoxia (Acute) Acute renal failure (ARF) (Acute) Community acquired pneumonia (Acute) Bronchospasm, acute (Acute) Bilateral pneumonia (Acute) Diarrhea (Acute) Acute respiratory failure with hypoxia (Acute) RECOMMENDATIONS: 1. Continue broad-spectrum antimicrobials, pending infectious work-up. 2. Place central venous catheter to facilitate vasopressor administration. 3. Wean Levophed to maintain a mean arterial pressure at or above 65 mmHg. 4. Potassium repletion. 5. Nephrology consultation pending. IMPRESSIONS: 1. Septic shock Concern for GI versus pulmonary source of infection. The patient has been adequately volume resuscitated. Therefore, we will plan to continue Levophed to maintain a mean arterial pressure at or above 65 mmHg. Central venous catheter will be placed this morning. Continue broad antimicrobial coverage for now, pending infectious work-up. Stool lactoferrin and C. difficile are pending. 2. Acute kidney injury Likely prerenal in etiology and related to ischemic ATN in the setting of #1. The patient has received supplemental IV fluid hydration and will be continued on vasopressor support to maintain hemodynamic stability. Renal ultrasound was unremarkable. Nephrology consultation is currently pending. 3. Acute hypoxemic respiratory insufficiency Likely secondary to underlying pulmonary infectious process. Continue supplemental oxygen and wean to maintain saturations at or above 90%. Encourage incentive spirometer use while in bed. 4. Hypokalemia Electrolyte repletion as ordered. Recheck levels in the morning. 5. Myeloproliferative disorder with chronic thrombocytosis/hypertension Complicates care, management, recovery and prognosis. Continue to hold antihypertensive regimen, given need for vasopressor support. TIME: 40 minutes of critical care time, independent of procedures, was spent addressing the patient's septic shock, acute kidney injury, acute hypoxemic respiratory insufficiency, hypokalemia, review of all data and collaboration with the care team. ([id number]) Code Visit [id number]: [id number] Critical care first hour
--- NOTE | 2019-06-07 07:11 | PCM.RX.CS ---
Consult Pharmacy has been consulted to manage selected antiobiotic: Vancomycin Type of Consult: New start Suspected Infection: Sepsis, Pneumonia Prior Doses of Antibiotics Received/Current Regimen: Received 1500mg iv x 1 in ER. Labs: Sodium 139 mmol/L (136-145) 06/07/19 03:55 Potassium 3.4 mmol/L (3.5-5.1) L 06/07/19 03:55 Chloride 109 mmol/L (98-107) H 06/07/19 03:55 Carbon Dioxide 20.0 mmol/L (21.0-32.0) L 06/07/19 03:55 Anion Gap 10 (5-15) 06/07/19 03:55 BUN 98 mg/dL (7-18) H 06/07/19 03:55 Creatinine 3.28 mg/dL (0.70-1.30) H 06/07/19 03:55 Est GFR (MDRD) Af Amer 25 mL/min (>60) L 06/07/19 03:55 Est GFR (MDRD) Non-Af 21 mL/min (>60) L 06/07/19 03:55 BUN/Creatinine Ratio 29.9 RATIO (10-20) H 06/07/19 03:55 Glucose 97 mg/dL (74-106) 06/07/19 03:55 Microbiology: Microbiology 06/06/19 17:51 Urine, Clean Catch Legionella Antigen - Final 06/06/19 17:51 Urine, Clean Catch Streptococcus pneumoniae Antigen (M - Final Weight used for dosin.4 kg Estimated Creatinine Clearance: ~20ml/min Goal Trough: 15-20 mcg/mL Pharmacy Plan for Drug Dosing: Renal function reviewed. Initial Cr 5.7, today 3.28 with CrCl ~20. A random vancomycin level has been ordered for 24hrs post ER dose. No further dosing ordered until renal function and level reviewed at that time. Pharmacy Service will continue to monitor and adjust dosing as required. Follow-Up Labs: Trough Other - vanc random level 2.28.20 @2200
--- NOTE | 2019-06-07 07:17 | PN_ITS ---
Patient Problems: Active and Suspected Problems Thrombocytosis (Acute) Severe sepsis (Acute) Hypoxia (Acute) Acute renal failure (ARF) (Acute) Community acquired pneumonia (Acute) Bronchospasm, acute (Acute) Bilateral pneumonia (Acute) Diarrhea (Acute) Acute respiratory failure with hypoxia (Acute) Reason for Visit: septic shock Subjective: Patient is a 58-year-old gentleman admitted with progressive generalized weakness shortness of breath as well as cough. Imaging studies obtained on admission demonstrated Patchy alveolar infiltrate suspicious for early pneumonic infiltrates are seen in the left hilar region and both lung bases. An assessment of septic shock was made admitted to the intensive care unit for subsequent management Objective: GENERAL: cooperative HEENT: Atraumatic; EYES; Anicteric, Normal Conjunctiva NECK; supple, normal thyroid, RESPIRATORY: Diminished to auscultation CARDIOVASCULAR: Regular S1 S2, GI: soft, normoactive bowel sounds, : No Renal angle tenderness; EXTREMITIES: No edema, no clubbing, MUSCULOSKELETAL: no muscle waisting NEURO: Awake; no lateralizing signs. SKIN: No Rash PSYCH; Flat affect Vitals/I&O's: Vital Signs Temp Pulse Resp BP Pulse Ox 97.5 F L 76 21 H 98/60 22 06/07/19 04:00 06/07/19 07:09 06/07/19 06:00 06/07/19 07:09 06/07/19 06:00 Oxygen Flow Rate (L/min) 2 Oxygen Delivery Method Nasal Cannula Weight: 92.9 kg Body Mass Index (BMI) 27.1 Intake and Output for Last 24 Hours 06/05/19 06/06/19 06/07/19 23:59 23:59 23:59 Intake Total 2305 / 2655 3002.22 / 3002.22 Output Total 1175 / 1175 Balance 2305 / 2205 1827.22 / 1827.22 Microbiology Past 72 Hours 06/06/19 17:51 Urine, Clean Catch Legionella Antigen - Final 06/06/19 17:51 Urine, Clean Catch Streptococcus pneumoniae Antigen (M - Final Laboratory Results 06/06/19 14:00: WBC 8.2, RBC 3.17 L, Hgb 13.5, Hct 37.7 L, MCV 118.9 H, MCH 42.6 H, MCHC 35.8, RDW Std Deviation 55.4 H, RDW Coeff of Jimmy 12.4, Plt Count 795 H*, MPV 10.2, Immature Gran % (Auto) 1.300 H, Neut % (Auto) 80.0 H, Lymph % (Auto) 13.6 L, [place] % (Auto) 4.4, Eos % (Auto) 0.5, Baso % (Auto) 0.2, Absolute Neuts (auto) 6.6, Absolute Lymphs (auto) 1.12, Nucleated RBC % 0, Differential Comment SCANNED, Diff Path Review August, Reactive Lymphocytes 2+, Platelet Estimate MKD INC 06/06/19 14:00: PT 14.3, INR 1.1, APTT 38.7 H 06/06/19 14:00: Sodium 133 L, Potassium 2.9 L, Chloride 101, Carbon Dioxide 21.0, Anion Gap 11, BUN 126 H*, Creatinine 5.71 H, Estim Creat Clear Calc 16.13, Est GFR (MDRD) Af Amer 13 L, Est GFR (MDRD) Non-Af 11 L, BUN/Creatinine Ratio 22.1 H, Glucose 132 H, Calcium 9.4, Total Bilirubin 1.40 H, AST 76 H, ALT 73 H, Alkaline Phosphatase 143 H, Total Protein 8.1, Albumin 2.8 L, Globulin 5.3 H, A lbumin/Globulin Ratio 0.5 L 06/06/19 14:00: Lactic Acid 3.0 H* 06/06/19 14:00: Phosphorus 3.9, Magnesium 2.7 H 06/06/19 17:51: Urine Color Yellow, Urine Clarity Sl. Cloudy, Urine pH 6.0, Ur Specific [place] 1.010, Urine Protein 15 H, Urine Glucose (UA) Normal, Urine Ketones 5 H, Urine Occult Blood 10 H, Urine Nitrite Negative, Urine Bilirubin Negative, Urine Urobilinogen Normal, Ur Leukocyte Esterase Negative, Urine RBC 0-5 SEEN, Urine WBC 0-5 SEEN, Ur Squamous Epith Cells 0 SEEN, Urine Bacteria 1+, Urine Mucus 0 SEEN 06/06/19 17:51: Urine Creatinine 90.20 06/06/19 17:51: Ur Random Sodium 63 06/06/19 18:45: Lactic Acid 1.3 06/06/19 20:05: MRSA (PCR) Negative 06/07/19 03:55: WBC 4.0 L, RBC 2.23 L, Hgb 10.0 L, Hct 27.0 L, MCV 121.1 H, MCH 44.8 H, MCHC 37.0 H, RDW Std Deviation 55.1 H, RDW Coeff of Jimmy 12.4, Plt Count , MPV 9.8, Immature Gran % (Auto) 2.000 H, Neut % (Auto) 78.1 H, Lymph % (Auto) 12.8 L, [place] % (Auto) 5.8, Eos % (Auto) 1.0, Baso % (Auto) 0.3, Absolute Neuts (auto) 3.1, Absolute Lymphs (auto) 0.51 L, Nucleated RBC % 0, Differential Comment SCANNED, Diff Path Review August eusebio, Platelet Estimate MOD INC, Hypochromasia 1+, Macrocytosis 1+ 06/07/19 03:55: Sodium 139, Potassium 3.4 L, Chloride 109 H, Carbon Dioxide 20.0 L, Anion Gap 10, BUN 98 H, Creatinine 3.28 H, Estim Creat Clear Calc 28.08, Est GFR (MDRD) Af Amer 25 L, Est GFR (MDRD) Non-Af 21 L, BUN/Creatinine Ratio 29.9 H , Glucose 97, Calcium 7.7 L, Total Bilirubin 0.90, AST 42 H, ALT 49, Alkaline Phosphatase 102, Total Protein 6.0 L, Albumin 2.0 L, Globulin 4.0, Albumin/Globulin Ratio 0.5 L Current Medications Acetaminophen (Tylenol) 650 mg PO Q6H PRN PRN PRN Reason: Pain Score 1-10/Temp > 100.7 F Al Hydroxide/Mg Hydroxide (Mylanta Ii) 30 ml PO Q6H PRN PRN PRN Reason: Gastric Burning Albuterol Sulfate (Ventolin Aerosols) 2.5 mg INHALATION Q2H PRN PRN PRN Reason: SOB/Wheezing Glucagon () 1 mg IM .X1 PRN PRN Reason: Hypoglycemia Guaifenesin (Robitussin) 10 ml PO Q4H PRN PRN PRN Reason: COUGH Heparin Sodium (Porcine) (Heparin Na) 5,000 unit SC Q12 DEBBIE Last Admin: 06/06/19 21:57 Dose: 5,000 unit Documented by: Hydralazine HCl (Apresoline Iv) 10 mg IV Q4H PRN PRN PRN Reason: SBP > 160 Piperacillin Sod/Tazobactam (Sod 3.375 gm/ Sodium Chloride) 50 mls @ 12.5 mls/hr IV Q12 [facility], [facility]1983 Last Infusion: 06/07/19 02:22 Dose: Infused Documented by: Vancomycin IV Pharmacy to Dose (1 ea/ Sodium Chloride) 500 mls @ 250 mls/hr IV PRN PRN; Protocol PRN Reason: Rx to Dose Sodium Chloride () 250 mls @ 15 mls/hr IV .[id number] PRN PRN Reason: Saline Flush Last Infusion: 06/07/19 02:23 Dose: 0 mls/hr Documented by: Sodium Chloride () 250 mls @ 15 mls/hr IV .[id number] PRN PRN Reason: Additional IVPB Infusion Dextrose (Dextrose 10%-Water) 250 mls @ 999 mls/hr IV .Q16M PRN; Protocol PRN Reason: HYPOGLYCEMIA Norepinephrine Bitartrate 8 mg (/ Sodium Chloride) 250 mls @ 9.375 mls/hr CONT INF .[id number] [facility], [facility]–1983; Protocol Last Titration: 06/07/19 07:09 Dose: 6 mcg/min, 11.3 mls/hr Documented by: Potassium Chloride 40 meq/ (Lactated Ringer's) 1,020 mls @ 150 mls/hr IV .[id number] [facility], [facility]1983 Nitroglycerin (Nitrostat) 0.4 mg SUBLINGUAL Q5M PRN PRN Reason: CARDIAC/CHEST PAIN Ondansetron HCl (Zofran) 4 mg IV Q8H PRN PRN PRN Reason: NAUSEA/VOMITING Prochlorperazine Edisylate (Compazine Iv) 5 mg IV Q4H PRN PRN PRN Reason: Breakthrough Nausea/Vomiting Sodium Chloride () 10 - 40 ml IV UD PRN PRN Reason: SALINE FLUSH Last Admin: 06/07/19 05:35 Dose: 10 ml Documented by: Throat Lozenges (Cepacol Sore Throat Lozenge) 1 lozenge MUCOUS MEM Q2H PRN PRN PRN Reason: SORE THROAT STROKE Vital Signs/Narrative: Vital Signs Temp Pulse Resp BP BP Pulse Ox 06/07/19 07:09 76 98/60 06/07/19 06:45 80 85/52 L 06/07/19 06:30 79 90/51 L 06/07/19 06:15 76 91/42 L 06/07/19 06:00 71 21 H 83/40 L 22 06/07/19 05:00 80 22 H 94/55 L 93 06/07/19 04:00 97.5 F L 80 21 H 84/40 L 97 Medical Necessity - Tobacco Use Smoking Status: Never smoker Tobacco Use: Non-smoker Assessment/Plan All Active Problems Thrombocytosis (Acute) Severe sepsis (Acute) Hypoxia (Acute) Acute renal failure (ARF) (Acute) Community acquired pneumonia (Acute) Bronchospasm, acute (Acute) Bilateral pneumonia (Acute) Diarrhea (Acute) Acute respiratory failure with hypoxia (Acute) Patient is a 58-year-old gentleman admitted with progressive generalized weakness shortness of breath as well as cough. Imaging studies obtained on admission demonstrated Patchy alveolar infiltrate suspicious for early pneumonic infiltrates are seen in the left hilar region and both lung bases. An assessment of septic shock was made admitted to the intensive care unit for subsequent management 1. Septic shock secondary to pneumonia with suspected [id number] organisms - Blood and sputum acute respiratory panel sent. Patient was started on broad- spectrum antibiotic therapy with Zithromax Zosyn and vancomycin admitted to the intensive care unit. Patient resuscitated with IV fluids. With patient not responding to fluid patient was started on Levophed. 2. Acute hypoxic respiratory failure secondary to pneumonia -management as discussed above 3. Acute kidney injury - suspected to be secondary to combination of ATN from patient septic shock as well as prerenal azotemia from 10-day history of diarrhea. Is also taking HCTZ as well as lisinopril prior to being admitted. Patient being resuscitated with IV fluids with monitoring of electrolytes renal ultrasound obtained demonstrated normal ultrasound of the kidneys and urinary bladder 4. Hypokalemia -corrected per protocol 5. Hyponatremia ?Secondary to hypovolemic hyponatremia resuscitated with IV fluids with subsequent monitoring of electrolyte 6. Myeloproliferative disorder with chronic thrombocytosis - patient is on Hydrea did continue 7. COPD -Not in exacerbation 8. Hypertension ~Blood pressure was low on admission antihypertensives subsequently held 9. GERD - per History 10. History of nephro lithiasis ?Currently asymptomatic 11. DVT prophylaxis ?Patient is on heparin Code Visit Inpatient E&M: [id number] [facility] Hosp L3
--- NOTE | 2019-06-07 09:27 | PCM.OPRPT ---
Report of Operation Date of Procedure: 06/07/19 Surgery/Procedure Performed:: Triple lumen catheter insertion Description of Surgical Findings:: Central line placement procedure note Indication: IV access/hemodynamic instability/vasoactive medications Procedure: A time-out was completed to verify correct patient, indication, medication allergies, procedure, coagulation studies, informed consent signed, and equipment needed. The patient was placed in the supine position for a central line placement to the rt IJ vein. The patients rt neck was prepped using chlorhexidine and a full body sterile drape was applied. 1% lidocaine was used to anesthetize the surrounding skin. A 7fr 16 cm blue guard triple lumen catheter introduced into the internal jugular femoral vein using the modified Seldinger technique with the assistance of ultrasound. The catheter was threaded smoothly over the guidewire, the guidewire was removed easily, nonpulsatile blood returned. All ports were aspirated of air and flushed with sterile saline. The catheter was sutured in place and covered with an occlusive dressing impregnated with chlorhexidine. Post-procedure: The patient tolerated the procedure well. Vital signs remained stable. EBL 3 cc. No complications. Chest X Ray ordered to confirm tip placement and the absence of pneumothorax.
--- NOTE | 2019-06-07 09:35 | RAD_ITS ---
STUDY: X-RAY CHEST REASON FOR EXAM: Male, 58 years old. LINE PLACEMENT TECHNIQUE: Single AP portable view of the chest. COMPARISON: 06/07/2003 37 FINDINGS: Interval placement of right internal jugular deep venous line with tip of the catheter overlying spur vena cava and no pneumothorax. The lungs are clear and expanded. There is no demonstrated pleural abnormality. Normal size heart. Normal mediastinum and jennifer. Normal visualized pulmonary arteries. Normal visualized aortic arch and descending thoracic aorta. Normal visualized thoracic spine. Normal visualized ribs, clavicles, and shoulders. There is no demonstrated abnormality of the visualized soft tissue structures of the upper abdomen. RAD/CXR for Line Placement IMPRESSION: 1. Interval placement of right internal jugular deep venous line with tip of the catheter overlying the superior vena cava and no pneumothorax. 2. No active disease. Electronically Signed: Leandro Ramirez MD at 11:10 EST Tel , Service support ,
[2019-06-07 10:37] LABS: Pathologist Review Reviewed
[2019-06-07 10:41] LABS: Pathologist Review Reviewed
[2019-06-07] MEDS: Heparin Injection (Vial) 5,000 UNIT/ML VIAL 5000 UNIT SC ×2 (10:49→21:56)
[2019-06-07] MEDS: Hydroxyurea 500 MG Capsule 1500 MG PO (10:50)
--- NOTE | 2019-06-07 11:49 | CON.PCM_ITS ---
Consultation - Renal 06/07/19 PCP/ Referring MD: Requesting physician: [] Primary care physician: PRINCE JOINER Reason for Consultation:: shawnee - History of Present Illness History of Present Illness: The patient is a 58 year old M presented to the emergency department on June 06 with complaints of shortness of breath, cough, diarrhea and weakness for 5 days. He was found to be hypoxic with bilateral pneumonia. He had SHAWNEE with creatinine 5.7 on admit improved to 3.28 today with aggressive hydration per sepsis protocol. The patient was started on antibiotics by his primary care provider day prior to admit. He had watery stools for almost a week with abdominal cramping. Denied any bloody stools. He complains of fever chills at home. Denied any NSAID use. He did notice a drop in his urine output. He takes lisinopril for high blood pressure past 15 years. Laboratory showed WBC of 8.2, platelet count was elevated to 795,000. Lactate was elevated to 3.0. Total bili, AST, ALT and alkaline phosphatase were all increased. UA was unremarkable. Chest x-ray revealed evidence of bibasilar airspace disease. He was admitted to medical intensive care unit for further management. He was started on pressor support for hypotension. Blood cx no growth so far. Respiratory panel pending. - Allergies Allergies: Allergies No Known Allergies Allergy (Verified 06/06/19 13:55) - Current Medications Current Medications: Current Medications Acetaminophen (Tylenol) 650 mg PO Q6H PRN PRN PRN Reason: Pain Score 1-10/Temp > 100.7 F Al Hydroxide/Mg Hydroxide (Mylanta Ii) 30 ml PO Q6H PRN PRN PRN Reason: Gastric Burning Albuterol Sulfate (Ventolin Aerosols) 2.5 mg INHALATION Q2H PRN PRN PRN Reason: SOB/Wheezing Glucagon () 1 mg IM .X1 PRN PRN Reason: Hypoglycemia Guaifenesin (Robitussin) 10 ml PO Q4H PRN PRN PRN Reason: COUGH Heparin Sodium (Porcine) (Heparin Na) 5,000 unit SC Q12 [facility] Last Admin: 06/07/19 10:49 Dose: 5,000 unit Documented by: Hydralazine HCl (Apresoline Iv) 10 mg IV Q4H PRN PRN PRN Reason: SBP > 160 Hydroxyurea (Hydrea) 1,500 mg PO DAILY [facility] Last Admin: 06/07/19 10:50 Dose: 1,500 mg Documented by: Piperacillin Sod/Tazobactam (Sod 3.375 gm/ Sodium Chloride) 50 mls @ 12.5 mls/hr IV Q12 [facility] Last Admin: 06/07/19 10:59 Dose: 12.5 mls/hr Documented by: Vancomycin IV Pharmacy to Dose (1 ea/ Sodium Chloride) 500 mls @ 250 mls/hr IV PRN PRN; Protocol PRN Reason: Rx to Dose Sodium Chloride () 250 mls @ 15 mls/hr IV .[id number] PRN PRN Reason: Saline Flush Last Infusion: 06/07/19 02:23 Dose: 0 mls/hr Documented by: Sodium Chloride () 250 mls @ 15 mls/hr IV .[id number] PRN PRN Reason: Additional IVPB Infusion Dextrose (Dextrose 10%-Water) 250 mls @ 999 mls/hr IV .Q16M PRN; Protocol PRN Reason: HYPOGLYCEMIA Norepinephrine Bitartrate 8 mg (/ Sodium Chloride) 250 mls @ 9.375 mls/hr CONT INF .[id number] [facility]; Protocol Last Titration: 06/07/19 07:09 Dose: 6 mcg/min, 11.3 mls/hr Documented by: Potassium Chloride 40 meq/ (Lactated Ringer's) 1,020 mls @ 150 mls/hr IV .[id number] [facility] Last Admin: 06/07/19 10:42 Dose: 150 mls/hr Documented by: Nitroglycerin (Nitrostat) 0.4 mg SUBLINGUAL Q5M PRN PRN Reason: CARDIAC/CHEST PAIN Ondansetron HCl (Zofran) 4 mg IV Q8H PRN PRN PRN Reason: NAUSEA/VOMITING Prochlorperazine Edisylate (Compazine Iv) 5 mg IV Q4H PRN PRN PRN Reason: Breakthrough Nausea/Vomiting Sodium Chloride () 10 - 40 ml IV UD PRN PRN Reason: SALINE FLUSH Last Admin: 06/07/19 05:35 Dose: 10 ml Documented by: Throat Lozenges (Cepacol Sore Throat Lozenge) 1 lozenge MUCOUS MEM Q2H PRN PRN PRN Reason: SORE THROAT - Past Medical History Past Medical History (Chronic Problems): Chronic Problems Polycythemia vera (Chronic) Benign essential hypertension (Chronic) - Past Surgical History Surgical History: - - Neck surgery, tonsillectomy. - Social History Smoking Status: Never smoker Alcohol: None Drugs: None - Family History Maternal History Items: - - Patient notes a maternal family history of dementia. Paternal History Items: Heart Disease, - - Patient notes a significant paternal family history of several strokes with a near bedbound status and complications related. Review of Systems Constitutional: Reports: Anorexia, Chills, Fever, Malaise, Weakness, Fatigue HEENT: Reports: Head Aches Cardiovascular: Reports: Light Headedness. Denies: Chest Pain, Edema Respiratory: Reports: Cough - Thick sputum no hemoptysis. Denies: Wheezing Gastrointestinal: Reports: Abdominal Pain - Cramping, Nausea, Vomiting. Denies: Hematemesis, Hematochezia, Melena Genitourinary: Reports: - - Decreased urine output. Denies: Dysuria Musculoskeletal: Denies: Joint stiffness, Neck Pain Skin: Denies: Rash Neurological: Reports: -. Denies: Tremor - Weakness, Seizures Psychiatric: Denies: Anxiety, Depression Hematologic/ Lymphatic: Denies: Anemia Patient Problems: Active and Suspected Problems Thrombocytosis (Acute) Severe sepsis (Acute) Hypoxia (Acute) Acute renal failure (ARF) (Acute) Community acquired pneumonia (Acute) Bronchospasm, acute (Acute) Bilateral pneumonia (Acute) Diarrhea (Acute) Acute respiratory failure with hypoxia (Acute) - Physical Exam Vitals/I&O's: Vital Signs Temp Pulse Resp BP Pulse Ox 97.5 F L 76 21 H 98/60 97 06/07/19 04:00 06/07/19 07:09 06/07/19 06:00 06/07/19 07:09 06/07/19 09:43 Oxygen Flow Rate (L/min) 2 Oxygen Delivery Method Nasal Cannula Weight: 92.9 kg Body Mass Index (BMI) 27.1 Intake and Output for Last 24 Hours 06/05/19 06/06/19 06/07/19 23:59 23:59 23:59 Intake Total 2305 / 2655 3369.72 / 3369.72 Output Total 1175 / 1175 Balance 2305 / 2205 2194.72 / 2194.72 General: Alert, Oriented x3, Cooperative, - - Appears ill, rubra HEENT: PERRLA, EOMI Oral: Dry Mucosa Neck: Supple Lungs: Rales - Bibasilar Cardiovascular: Regular rate Abdomen: Bowel Sounds Present, Soft, Distended, Tender - Mild left lower quadrant discomfort Extremities: No edema Skin: No rashes Musculoskeletal: No Muscle Wasting Lymphatic: No Cervical, Supraclavicular, or Inguinal Adenopathy Neurological: Cranial nerves II-XII grossly intact, - - Generalized weakness Psych/Mental Status: Normal Affect, Appropriate, Alert and oriented to time, place, person, mood and affect Microbiology Past 72 Hours 06/06/19 17:51 Urine, Clean Catch Legionella Antigen - Final 06/06/19 17:51 Urine, Clean Catch Streptococcus pneumoniae Antigen (M - Final Laboratory Results 06/06/19 14:00: WBC 8.2, RBC 3.17 L, Hgb 13.5, Hct 37.7 L, MCV 118.9 H, MCH 42.6 H, MCHC 35.8, RDW Std Deviation 55.4 H, RDW Coeff of Jimmy 12.4, Plt Count 795 H* , MPV 10.2, Immature Gran % (Auto) 1.300 H, Neut % (Auto) 80.0 H, Lymph % (Auto) 13.6 L, Sharkey % (Auto) 4.4, Eos % (Auto) 0.5, Baso % (Auto) 0.2, Absolute Neuts (auto) 6.6, Absolute Lymphs (auto) 1.12, Nucleated RBC % 0, Differential Comment SCANNED, Diff Path Review Reviewed, Reactive Lymphocytes 2+, Platelet Estimate MKD INC 06/06/19 14:00: PT 14.3, INR 1.1, APTT 38.7 H 06/06/19 14:00: Sodium 133 L, Potassium 2.9 L, Chloride 101, Carbon Dioxide 21.0, Anion Gap 11, BUN 126 H*, Creatinine 5.71 H, Estim Creat Clear Calc 16.13, Est GFR (MDRD) Af Amer 13 L, Est GFR (MDRD) Non-Af 11 L, BUN/Creatinine Ratio 22.1 H, Glucose 132 H, Calcium 9.4, Total Bilirubin 1.40 H, AST 76 H, ALT 73 H, Alkaline Phosphatase 143 H, Total Protein 8.1, Albumin 2.8 L, Globulin 5.3 H, Albumin/Globulin Ratio 0.5 L 06/06/19 14:00: Lactic Acid 3.0 H* 06/06/19 14:00: Phosphorus 3.9, Magnesium 2.7 H 06/06/19 17:51: Urine Color Yellow, Urine Clarity Sl. Cloudy, Urine pH 6.0, Ur Specific Rosamond 1.010, Urine Protein 15 H, Urine Glucose (UA) Normal, Urine Ketones 5 H, Urine Occult Blood 10 H, Urine Nitrite Negative, Urine Bilirubin Negative, Urine Urobilinogen Normal, Ur Leukocyte Esterase Negative, Urine RBC 0-5 SEEN, Urine WBC 0-5 SEEN, Ur Squamous Epith Cells 0 SEEN, Urine Bacteria 1+, Urine Mucus 0 SEEN 06/06/19 17:51: Urine Creatinine 90.20 06/06/19 17:51: Ur Random Sodium 63 06/06/19 18:45: Lactic Acid 1.3 06/06/19 20:05: MRSA (PCR) Negative 06/07/19 03:55: WBC 4.0 L, RBC 2.23 L, Hgb 10.0 L, Hct 27.0 L, MCV 121.1 H, MCH 44.8 H, MCHC 37.0 H, RDW Std Deviation 55.1 H, RDW Coeff of Jimmy 12.4, Plt Count , MPV 9.8, Immature Gran % (Auto) 2.000 H, Neut % (Auto) 78.1 H, Lymph % (Auto) 12.8 L, Sharkey % (Auto) 5.8, Eos % (Auto) 1.0, Baso % (Auto) 0.3, Absolute Neuts (auto) 3.1, Absolute Lymphs (auto) 0.51 L, Nucleated RBC % 0, Differential Comment SCANNED, Diff Path Review Reviewed, Platelet Estimate MOD INC, Hypochromasia 1+, Macrocytosis 1+ 06/07/19 03:55: Sodium 139, Potassium 3.4 L, Chloride 109 H, Carbon Dioxide 20.0 L, Anion Gap 10, BUN 98 H, Creatinine 3.28 H, Estim Creat Clear Calc 28.08, Est GFR (MDRD) Af Amer 25 L, Est GFR (MDRD) Non-Af 21 L, BUN/Creatinine Ratio 29.9 H, Glucose 97, Calcium 7.7 L, Total Bilirubin 0.90, AST 42 H, ALT 49, Alkaline Phosphatase 102, Total Protein 6.0 L, Albumin 2.0 L, Globulin 4.0, Albumin/Globulin Ratio 0.5 L Clinical Impression(s) from Imaging Studies Chest X-Ray 06/06/19 14:20 IMPRESSION: Patchy alveolar infiltrate suspicious for early pneumonic infiltrates are seen in the left hilar region and both lung bases. Electronically Signed: Volodymyr Collins at 15:35 EST Tel , Service support , Renal Ultrasound 06/06/19 19:47 IMPRESSION: Normal ultrasound of the kidneys and urinary bladder. Electronically Signed: Abdifatah Moreira MD at 21:17 EST , Service support , Chest X-Ray 06/07/19 05:55 IMPRESSION: Minimal change in bilateral infiltrates. at 0557 Reported and signed by: Nini Irwin MD Electronically Signed: Nini Irwin MD at 5:57 EST Tel , Service support , Chest X-Ray 06/07/19 09:35 IMPRESSION: 1. Interval placement of right internal jugular deep venous line with tip of the catheter overlying the superior vena cava and no pneumothorax. 2. No active disease. Electronically Signed: Leandro Ramirez MD at 11:10 EST Tel , Service support , Current Medications Acetaminophen (Tylenol) 650 mg PO Q6H PRN PRN PRN Reason: Pain Score 1-10/Temp > 100.7 F Al Hydroxide/Mg Hydroxide (Mylanta Ii) 30 ml PO Q6H PRN PRN PRN Reason: Gastric Burning Albuterol Sulfate (Ventolin Aerosols) 2.5 mg INHALATION Q2H PRN PRN PRN Reason: SOB/Wheezing Glucagon () 1 mg IM .X1 PRN PRN Reason: Hypoglycemia Guaifenesin (Robitussin) 10 ml PO Q4H PRN PRN PRN Reason: COUGH Heparin Sodium (Porcine) (Heparin Na) 5,000 unit SC Q12 [facility] Last Admin: 06/07/19 10:49 Dose: 5,000 unit Documented by: Hydralazine HCl (Apresoline Iv) 10 mg IV Q4H PRN PRN PRN Reason: SBP > 160 Hydroxyurea (Hydrea) 1,500 mg PO DAILY [facility] Last Admin: 06/07/19 10:50 Dose: 1,500 mg Documented by: Piperacillin Sod/Tazobactam (Sod 3.375 gm/ Sodium Chloride) 50 mls @ 12.5 mls/hr IV Q12 [facility] Last Admin: 06/07/19 10:59 Dose: 12.5 mls/hr Documented by: Vancomycin IV Pharmacy to Dose (1 ea/ Sodium Chloride) 500 mls @ 250 mls/hr IV PRN PRN; Protocol PRN Reason: Rx to Dose Sodium Chloride () 250 mls @ 15 mls/hr IV .[id number] PRN PRN Reason: Saline Flush Last Infusion: 06/07/19 02:23 Dose: 0 mls/hr Documented by: Sodium Chloride () 250 mls @ 15 mls/hr IV .[id number] PRN PRN Reason: Additional IVPB Infusion Dextrose (Dextrose 10%-Water) 250 mls @ 999 mls/hr IV .Q16M PRN; Protocol PRN Reason: HYPOGLYCEMIA Norepinephrine Bitartrate 8 mg (/ Sodium Chloride) 250 mls @ 9.375 mls/hr CONT INF .[id number] [facility]; Protocol Last Titration: 06/07/19 07:09 Dose: 6 mcg/min, 11.3 mls/hr Documented by: Potassium Chloride 40 meq/ (Lactated Ringer's) 1,020 mls @ 150 mls/hr IV .[id number] [facility] Last Admin: 06/07/19 10:42 Dose: 150 mls/hr Documented by: Nitroglycerin (Nitrostat) 0.4 mg SUBLINGUAL Q5M PRN PRN Reason: CARDIAC/CHEST PAIN Ondansetron HCl (Zofran) 4 mg IV Q8H PRN PRN PRN Reason: NAUSEA/VOMITING Prochlorperazine Edisylate (Compazine Iv) 5 mg IV Q4H PRN PRN PRN Reason: Breakthrough Nausea/Vomiting Sodium Chloride () 10 - 40 ml IV UD PRN PRN Reason: SALINE FLUSH Last Admin: 06/07/19 05:35 Dose: 10 ml Documented by: Throat Lozenges (Cepacol Sore Throat Lozenge) 1 lozenge MUCOUS MEM Q2H PRN PRN PRN Reason: SORE THROAT Assessment/Plan All Active Problems Thrombocytosis (Acute) Severe sepsis (Acute) Hypoxia (Acute) Acute renal failure (ARF) (Acute) Community acquired pneumonia (Acute) Bronchospasm, acute (Acute) Bilateral pneumonia (Acute) Diarrhea (Acute) Acute respiratory failure with hypoxia (Acute) 1. Acute kidney injury likely due to hypotension from profound dehydration. Creatinine 5.7 improved to 3.28 today with aggressive hydration. Continue with IV fluids and pressor support. FENA >1 but appears to have been checked after aggressive IV fluids. 2. Acute viral illness. Await respiratory panel. Blood culture no growth so far. 3. Hypokalemia due to poor intake, acute diarrhea. 4. Acute diarrhea await stool culture. 5. Sepsis syndrome blood culture no growth so far. Continue pressor support 6. History of hypertension on lisinopril at home. Continue to hold antihypertensive medications for low blood pressure. 7. Mildly elevated liver enzymes likely due to shock sepsis syndrome, hypotension.
--- NOTE | 2019-06-07 11:57 | CASEMGMT ---
RN CM Assessment Note Presentation: Sepsis/pneumonia, Pressor support IVF Intro role of CM and purpose of RN CM assessment to patient in room. Pt is awake, alert, able to participate in assessment. Demographics, PCP and Pharmacy verified. Pt states he is still feeling badly, weak and anxious over having been so sick. RN CM provided emotional support, allowed pt to verbalize concerns re: illness and needing to come to ER. Pt states he is very independent prior to admission. PCP: Dr. Alfreda Butler Specialists: Dr. Lux, oncology [facility]acy[facility] Insurance: self pay Prescription Benefit: none. May benefit from [facility] Retail Pharmacy assist if medications on dc are cost prohibitive for pt. LNOK : Friend Living Arrangements: [facility], states no difficulties prior to illness, then became very weak. Has stairs in home to bedrooms upstairs and basement Transportation: drives DME: none HHC/SNF: none SW: pt is self pay. Referral to discuss ADV DIR as pt has does not have POA papers or family listed for contact. Patient DC goals: Home DC PLAN: Anticipate home on discharge. Pt is on oxygen currently; may need home oxygen testing if not weaned prior to dc. RN CM advised to contact cm for any concerns/needs that may arise. Omero RAZAN RN ACM
--- NOTE | 2019-06-07 12:19 | CASEMGMT ---
RN CM Assessment Note Presentation: Sepsis/pneumonia, Pressor support IVF Intro role of CM and purpose of RN CM assessment to patient in room. Pt is awake, alert, able to participate in assessment. Demographics, PCP and Pharmacy verified. Pt states he is still feeling badly, weak and anxious over having been so sick. RN CM provided emotional support, allowed pt to verbalize concerns re: illness and needing to come to ER. Pt states he is very independent prior to admission. PCP: Dr. Alfreda Butler Specialists: Dr. Lux, oncology [facility]erred [facility]acy[facility] Insurance: self pay Prescription Benefit: none. May benefit from [facility] Retail Pharmacy assist if medications on dc are cost prohibitive for pt. LNOK : Brother Living Arrangements: lives in [facility], states no difficulties prior to illness, then became very weak. Has stairs in home to bedrooms upstairs and basement Transportation: drives DME: none HHC/SNF: none SW: pt is self pay, possible need for pharmacy assist on dc. Patient DC goals: Home DC PLAN: Anticipate home on discharge. Pt is on oxygen currently; may need home oxygen testing if not weaned prior to dc. RN CM advised to contact cm for any concerns/needs that may arise. Omero TO RN ACM
--- NOTE | 2019-06-07 12:49 | CASEMGMT ---
SW met w/pt in regard to self pay status, and in regard to LW/POA. Pt states he has POA form completed, and his brother is his POA. He does not have a living will and may want to complete that at some point. SW gave pt the blank forms w/the number to the SW dept to complete the forms when he's ready to completing the forms. SW also spoke w/pt in regard to self pay status. Pt states he may need financial assist after all of this. SW gave pt resources including [employer], [employer]la Ruvalc[employer], prescription assist programs, [facility] [employer], [employer], and a Medicaid application. Pt talked about utilizing these resources, that he would give food away before taking food. We spoke about the difficulty of the situation, and that it's difficult to accept help when being a self sufficient person normally. Support given to pt. Pt may need hospital assist for meds at discharge, SW explained that she can use this program once per year and we can utilize if needed; pt states understanding and may be open to utilizing this if necessary. SW will continue to follow for med assist if needed. YADIEL Murguia
[2019-06-07] MEDS: MELATONIN 10 MG TABLET PO (21:57)
[2019-06-07 23:21] LABS: Vancomycin, Random Level 8.6 ug/mL (0.0-15.0)
[2019-06-08] VITALS (22 sets, daily range): BP systolic 97–140; BP diastolic 58–103; PULSE 0–99; RESP 14–25; TEMP 36.2–37.1; O2SAT 87–100
--- NOTE | 2019-06-08 01:36 | PCM.RX.CS ---
Consult Pharmacy has been consulted to manage selected antiobiotic: Vancomycin Type of Consult: Follow-up Labs: Sodium 139 mmol/L (136-145) 06/07/19 03:55 Potassium 3.4 mmol/L (3.5-5.1) L 06/07/19 03:55 Chloride 109 mmol/L (98-107) H 06/07/19 03:55 Carbon Dioxide 20.0 mmol/L (21.0-32.0) L 06/07/19 03:55 Anion Gap 10 (5-15) 06/07/19 03:55 BUN 98 mg/dL (7-18) H 06/07/19 03:55 Creatinine 3.28 mg/dL (0.70-1.30) H 06/07/19 03:55 Est GFR (MDRD) Af Amer 25 mL/min (>60) L 06/07/19 03:55 Est GFR (MDRD) Non-Af 21 mL/min (>60) L 06/07/19 03:55 BUN/Creatinine Ratio 29.9 RATIO (10-20) H 06/07/19 03:55 Glucose 97 mg/dL (74-106) 06/07/19 03:55 Random Vancomycin 8.6 ug/mL (0.0-15.0) 06/07/19 22:45 Microbiology: Microbiology 06/07/19 20:20 Stool Stool Lactoferrin - Final 06/07/19 20:20 Stool C. difficile DNA Amplification - Final 06/06/19 20:55 Mucosa - Nasopharyngeal Respiratory Panel (PCR) - Preliminary 06/06/19 17:51 Urine, Clean Catch Legionella Antigen - Final 06/06/19 17:51 Urine, Clean Catch Streptococcus pneumoniae Antigen (M - Final Goal Trough: 15-20 mcg/mL Pharmacy Plan for Drug Dosing: Pharmacy Service will continue to monitor and adjust dosing as required. RANDOM LEVEL 8.6. DOSE 1500MG X1 NOW AND FOLOW UP WITH RANDOM TROUGH 06/08 WITH [facility] Follow-Up Labs: Trough Vancomycin Labs to be done on [date and time ordered]: 06/08 WITH [facility]
[2019-06-08] MEDS: 0.9% Saline Lock 10 ML Syringe IV ×2 (04:24→22:14)
[2019-06-08 04:38] LABS: Hematocrit 24.2 % (40-54); Hemoglobin 8.7 g/dL (13.0-16.5); Mean Corpuscular Hgb 44.2 pg (27.0-32.0); Mean Corpuscular Volume 122.8 fL (80-94); Mean Platelet Vol. 9.2 fl (6.2-12.0); Platelet Count 620 K/mm3 (150-450); RBC Distribution Width CV 12.8 % (11.6-14.6); RBC Distribution Width SD 57.8 fl (35.1-43.9); Red Blood Count 1.97 M/mm3 (4.6-6.2); White Blood Count 4.2 K/mm3 (4.4-11.0)
[2019-06-08 05:00] LABS: Anion Gap 6 (5-15); BUN 52 mg/dL (7-18); BUN/Creat Ratio 32.1 RATIO (10-20); Calcium,Total 7.8 mg/dL (8.5-10.1); Chloride 116 mmol/L (98-107); Creatinine, Serum 1.62 mg/dL (0.70-1.30); EST Glomerular Filtration Rate 47 mL/min (>60); Est Glom Filt Rate - Afr Amer 57 mL/min (>60); Estimated Creatinine Clearance 56.86 ml/min; Glucose 102 mg/dL (74-106); Magnesium 1.8 mg/dL (1.6-2.6); Potassium 4.1 mmol/L (3.5-5.1); Sodium Level 144 mmol/L (136-145)
--- NOTE | 2019-06-08 06:17 | PN_ITS ---
Subjective: The patient was seen and examined at the bedside this morning. Events from the last 24 hours have been reviewed. The patient is currently afebrile, hemodynamically stable and maintaining appropriate oxygen saturations on room air. The patient was able to be weaned completely off of Levophed at 0145 last evening. The patient's p.o. intake has improved. He did have 1 loose bowel movement overnight, for which the previously ordered GI infectious work-up labs were sent. The patient's main concern this morning is for that of gurgling in his stomach and intermittent abdominal pain. Creatinine has improved this morning to 1.62. Objective: The patient's most recent lab work, culture data and imaging studies have all been personally reviewed. C. difficile was negative. Stool lactoferrin was negative. Strep and urine Legionella antigens were negative. Blood and urine cultures are pending. Enteric panel is pending. General: Alert, Cooperative, No apparent distress HEENT: Atraumatic, PERRLA, Normocephalic Oral: No Gingival or Mucosal Lesions/ Ulcerations Neck: Supple, No Nodes, Trachea Midline Lungs: No rhonchi, No wheeze, No rales Cardiovascular: Regular rate, Regular Rhythm, Normal S1, Normal S2 Abdomen: Soft, Non Tender, Hyperactive Bowel Sounds Extremities: No clubbing, No cyanosis, No edema Skin: No breakdown Musculoskeletal: No Tenderness to Palpation of Joints or Extremities Lymphatic: No Cervical, Supraclavicular, or Inguinal Adenopathy Neurological: Cranial nerves II-XII grossly intact, Neuro grossly intact Psych/Mental Status: Anxious Vital Signs Temp Pulse Resp BP Pulse Ox 98.8 F 78 22 H 108/73 91 06/08/19 04:00 06/08/19 06:00 06/08/19 06:00 06/08/19 06:00 06/08/19 06:00 Oxygen Flow Rate (L/min) 2 Oxygen Delivery Method Nasal Cannula Weight: 197 lb 12.074 oz Body Mass Index (BMI) 27.1 Intake and Output for Last 24 Hours 06/06/19 06/07/19 06/08/19 23:59 23:59 23:59 Intake Total 2305 / 2655 6250.31 / 6255.94 2276.58 / 2276.58 Output Total 3550 / 4300 2150 / 2150 Balance 2305 / 2205 2700.31 / 1955.94 126.58 / 126.58 Labs (Last 48 Hours) 06/06/19 06/06/19 06/06/19 14:00 14:00 14:00 WBC 8.2 RBC 3.17 L Hgb 13.5 Hct 37.7 L MCV 118.9 H MCH 42.6 H MCHC 35.8 RDW Std Deviation 55.4 H RDW Coeff of Jimmy 12.4 Plt Count 795 H* MPV 10.2 Immature Gran % (Auto) 1.300 H Neut % (Auto) 80.0 H Lymph % (Auto) 13.6 L [place] % (Auto) 4.4 Eos % (Auto) 0.5 Baso % (Auto) 0.2 Absolute Neuts (auto) 6.6 Absolute Lymphs (auto) 1.12 Nucleated RBC % 0 Differential Comment SCANNED Diff Path Review Reviewed Reactive Lymphocytes 2+ Platelet Estimate MKD INC Hypochromasia Macrocytosis PT 14.3 INR 1.1 APTT 38.7 H Sodium 133 L Potassium 2.9 L Chloride 101 Carbon Dioxide 21.0 Anion Gap 11 BUN 126 H* Creatinine 5.71 H Estim Creat Clear Calc 16.13 Est GFR (MDRD) Af Amer 13 L Est GFR (MDRD) Non-Af 11 L BUN/Creatinine Ratio 22.1 H Glucose 132 H Lactic Acid Calcium 9.4 Phosphorus Magnesium Total Bilirubin 1.40 H AST 76 H ALT 73 H Alkaline Phosphatase 143 H Total Protein 8.1 Albumin 2.8 L Globulin 5.3 H Albumin/Globulin Ratio 0.5 L Urine Color Urine Clarity Urine pH Ur Specific [place] Urine Protein Urine Glucose (UA) Urine Ketones Urine Occult Blood Urine Nitrite Urine Bilirubin Urine Urobilinogen Ur Leukocyte Esterase Urine RBC Urine WBC Ur Squamous Epith Cells Urine Bacteria Urine Mucus Ur Random Sodium Urine Creatinine Random Vancomycin MRSA (PCR) 06/06/19 06/06/19 06/06/19 14:00 14:00 17:51 WBC RBC Hgb Hct MCV MCH MCHC RDW Std Deviation RDW Coeff of Jimmy Plt Count MPV Immature Gran % (Auto) Neut % (Auto) Lymph % (Auto) [place] % (Auto) Eos % (Auto) Baso % (Auto) Absolute Neuts (auto) Absolute Lymphs (auto) Nucleated RBC % Differential Comment Diff Path Review Reactive Lymphocytes Platelet Estimate Hypochromasia Macrocytosis PT INR APTT Sodium Potassium Chloride Carbon Dioxide Anion Gap BUN Creatinine Estim Creat Clear Calc Est GFR (MDRD) Af Amer Est GFR (MDRD) Non-Af BUN/Creatinine Ratio Glucose Lactic Acid 3.0 H* Calcium Phosphorus 3.9 Magnesium 2.7 H Total Bilirubin AST ALT Alkaline Phosphatase Total Protein Albumin Globulin Albumin/Globulin Ratio Urine Color Yellow Urine Clarity Sl. Cloudy Urine pH 6.0 Ur Specific [place] 1.010 Urine Protein 15 H Urine Glucose (UA) Normal Urine Ketones 5 H Urine Occult Blood 10 H Urine Nitrite Negative Urine Bilirubin Negative Urine Urobilinogen Normal Ur Leukocyte Esterase Negative Urine RBC 0-5 SEEN Urine WBC 0-5 SEEN Ur Squamous Epith Cells 0 SEEN Urine Bacteria 1+ Urine Mucus 0 SEEN Ur Random Sodium Urine Creatinine Random Vancomycin MRSA (PCR) 06/06/19 06/06/19 06/06/19 17:51 17:51 18:45 WBC RBC Hgb Hct MCV MCH MCHC RDW Std Deviation RDW Coeff of Jimmy Plt Count MPV Immature Gran % (Auto) Neut % (Auto) Lymph % (Auto) [place] % (Auto) Eos % (Auto) Baso % (Auto) Absolute Neuts (auto) Absolute Lymphs (auto) Nucleated RBC % Differential Comment Diff Path Review Reactive Lymphocytes Platelet Estimate Hypochromasia Macrocytosis PT INR APTT Sodium Potassium Chloride Carbon Dioxide Anion Gap BUN Creatinine Estim Creat Clear Calc Est GFR (MDRD) Af Amer Est GFR (MDRD) Non-Af BUN/Creatinine Ratio Glucose Lactic Acid 1.3 Calcium Phosphorus Magnesium Total Bilirubin AST ALT Alkaline Phosphatase Total Protein Albumin Globulin Albumin/Globulin Ratio Urine Color Urine Clarity Urine pH Ur Specific [place] Urine Protein Urine Glucose (UA) Urine Ketones Urine Occult Blood Urine Nitrite Urine Bilirubin Urine Urobilinogen Ur Leukocyte Esterase Urine RBC Urine WBC Ur Squamous Epith Cells Urine Bacteria Urine Mucus Ur Random Sodium 63 Urine Creatinine 90.20 Random Vancomycin MRSA (PCR) 06/06/19 06/07/19 06/07/19 20:05 03:55 03:55 WBC 4.0 L RBC 2.23 L Hgb 10.0 L Hct 27.0 L MCV 121.1 H MCH 44.8 H MCHC 37.0 H RDW Std Deviation 55.1 H RDW Coeff of Jimmy 12.4 Plt Count MPV 9.8 Immature Gran % (Auto) 2.000 H Neut % (Auto) 78.1 H Lymph % (Auto) 12.8 L [place] % (Auto) 5.8 Eos % (Auto) 1.0 Baso % (Auto) 0.3 Absolute Neuts (auto) 3.1 Absolute Lymphs (auto) 0.51 L Nucleated RBC % 0 Differential Comment SCANNED Diff Path Review Reviewed Reactive Lymphocytes Platelet Estimate MOD INC Hypochromasia 1+ Macrocytosis 1+ PT INR APTT Sodium 139 Potassium 3.4 L Chloride 109 H Carbon Dioxide 20.0 L Anion Gap 10 BUN 98 H Creatinine 3.28 H Estim Creat Clear Calc 28.08 Est GFR (MDRD) Af Amer 25 L Est GFR (MDRD) Non-Af 21 L BUN/Creatinine Ratio 29.9 H Glucose 97 Lactic Acid Calcium 7.7 L Phosphorus Magnesium Total Bilirubin 0.90 AST 42 H ALT 49 Alkaline Phosphatase 102 Total Protein 6.0 L Albumin 2.0 L Globulin 4.0 Albumin/Globulin Ratio 0.5 L Urine Color Urine Clarity Urine pH Ur Specific [place] Urine Protein Urine Glucose (UA) Urine Ketones Urine Occult Blood Urine Nitrite Urine Bilirubin Urine Urobilinogen Ur Leukocyte Esterase Urine RBC Urine WBC Ur Squamous Epith Cells Urine Bacteria Urine Mucus Ur Random Sodium Urine Creatinine Random Vancomycin MRSA (PCR) Negative 06/07/19 06/08/19 06/08/19 22:45 04:30 04:30 WBC 4.2 L RBC 1.97 L Hgb 8.7 L Hct 24.2 L MCV 122.8 H MCH 44.2 H MCHC 36.0 RDW Std Deviation 57.8 H RDW Coeff of Jimmy 12.8 Plt Count 620 H MPV 9.2 Immature Gran % (Auto) Neut % (Auto) Lymph % (Auto) [place] % (Auto) Eos % (Auto) Baso % (Auto) Absolute Neuts (auto) Absolute Lymphs (auto) Nucleated RBC % Differential Comment Diff Path Review Reactive Lymphocytes Platelet Estimate Hypochromasia Macrocytosis PT INR APTT Sodium 144 Potassium 4.1 Chloride 116 H Carbon Dioxide 22.0 Anion Gap 6 BUN 52 H Creatinine 1.62 H Estim Creat Clear Calc 56.86 Est GFR (MDRD) Af Amer 57 L Est GFR (MDRD) Non-Af 47 L BUN/Creatinine Ratio 32.1 H Glucose 102 Lactic Acid Calcium 7.8 L Phosphorus Magnesium 1.8 Total Bilirubin AST ALT Alkaline Phosphatase Total Protein Albumin Globulin Albumin/Globulin Ratio Urine Color Urine Clarity Urine pH Ur Specific [place] Urine Protein Urine Glucose (UA) Urine Ketones Urine Occult Blood Urine Nitrite Urine Bilirubin Urine Urobilinogen Ur Leukocyte Esterase Urine RBC Urine WBC Ur Squamous Epith Cells Urine Bacteria Urine Mucus Ur Random Sodium Urine Creatinine Random Vancomycin 8.6 MRSA (PCR) Microbiology 06/07/19 20:20 Stool Stool Lactoferrin - Final 06/07/19 20:20 Stool C. difficile DNA Amplification - Final 06/06/19 20:55 Mucosa - Nasopharyngeal Respiratory Panel (PCR) - Preliminary 06/06/19 17:51 Urine, Clean Catch Legionella Antigen - Final 06/06/19 17:51 Urine, Clean Catch Streptococcus pneumoniae Antigen (M - Final Clinical Impression(s) from Imaging Studies Chest X-Ray 06/06/19 14:20 IMPRESSION: Patchy alveolar infiltrate suspicious for early pneumonic infiltrates are seen in the left hilar region and both lung bases. Electronically Signed: Volodymyr Collins at 15:35 EST Tel , Service support , Renal Ultrasound 06/06/19 19:47 IMPRESSION: Normal ultrasound of the kidneys and urinary bladder. Electronically Signed: Abdifatah Moreira MD at 21:17 EST , Service support , Chest X-Ray 06/07/19 05:55 IMPRESSION: Minimal change in bilateral infiltrates. at 0557 Reported and signed by: Nini Irwin MD Electronically Signed: Nini Irwin MD at 5:57 EST Tel , Service support , Chest X-Ray 06/07/19 09:35 IMPRESSION: 1. Interval placement of right internal jugular deep venous line with tip of the catheter overlying the superior vena cava and no pneumothorax. 2. No active disease. Electronically Signed: Leandro Ramirez MD at 11:10 EST Tel , Service support , Medical Necessity - Tobacco Use Smoking Status: Never smoker Tobacco Use: Non-smoker Assessment/Plan All Active Problems Thrombocytosis (Acute) Severe sepsis (Acute) Hypoxia (Acute) Acute renal failure (ARF) (Acute) Community acquired pneumonia (Acute) Bronchospasm, acute (Acute) Bilateral pneumonia (Acute) Diarrhea (Acute) Acute respiratory failure with hypoxia (Acute) RECOMMENDATIONS: 1. Continue broad-spectrum antimicrobials, pending finalized infectious work- up. 2. Continue gentle IV fluid hydration to offset insensible losses. 3. Encourage incentive spirometer use while in bed and mobilize patient as dotty erated. 4. Vancomycin can be discontinued from my perspective. 5. The patient is medically stable for transfer out of the intensive care unit. IMPRESSIONS: 1. Septic shock Concern for GI versus pulmonary source of infection. The patient received supplemental IV fluid hydration and did have to be started on vasopressor support for a short period of time. He has since been weaned from Levophed and remains hemodynamically stable. Infectious work-up is still in process. Therefore, the patient will remain on empiric antimicrobials. However, vancomycin can be discontinued from my perspective. 2. Acute kidney injury Improving. Likely prerenal in etiology and related to ischemic ATN in the setting of #1. Continue gentle IV fluid hydration to offset insensible losses. Nephrology is currently following. 3. Acute hypoxemic respiratory insufficiency Improved. Likely secondary to underlying pulmonary infectious process. Continue supplemental oxygen and wean to maintain saturations at or above 90%. Encourage incentive spirometer use while in bed. 4. Myeloproliferative disorder with chronic thrombocytosis/hypertension Complicates care, management, recovery and prognosis. Continue to hold antihypertensive regimen. This note was generated with [employer] software. It may contain incorrect words, spelling, and punctuation that were not noted in checking the note before signing. Code Visit Inpatient E&M: [id number] [facility] L3
--- NOTE | 2019-06-08 07:53 | PCM.PN.HOSP ---
Patient Problems: Active and Suspected Problems Thrombocytosis (Acute) Severe sepsis (Acute) Hypoxia (Acute) Acute renal failure (ARF) (Acute) Community acquired pneumonia (Acute) Bronchospasm, acute (Acute) Bilateral pneumonia (Acute) Diarrhea (Acute) Acute respiratory failure with hypoxia (Acute) Reason for Visit: Follow-up septic shock Subjective: Seen in the ICU complains of abdominal discomfort as well as doing in the stomach. Still continues to experience loose bowel movement. Stool studies so far negative. Patient viral respiratory panel also unremarkable. Blood pressure remains fairly stable with systolic in 100s. Objective: GENERAL: cooperative HEENT: Atraumatic; EYES; Anicteric, Normal Conjunctiva NECK; supple, normal thyroid, RESPIRATORY: Diminished to auscultation CARDIOVASCULAR: Regular S1 S2, GI: soft, normoactive bowel sounds, : No Renal angle tenderness; EXTREMITIES: No edema, no clubbing, MUSCULOSKELETAL: no muscle waisting NEURO: Awake; no lateralizing signs. SKIN: No Rash PSYCH; Flat affect Vitals/I&O's: Vital Signs Temp Pulse Resp BP Pulse Ox 98.8 F 88 14 140/82 H 97 06/08/19 04:00 06/08/19 07:00 06/08/19 07:00 06/08/19 07:00 06/08/19 07:00 Oxygen Flow Rate (L/min) 2 Oxygen Delivery Method Room Air Weight: 89.7 kg Body Mass Index (BMI) 27.1 Intake and Output for Last 24 Hours 06/06/19 06/07/19 06/08/19 23:59 23:59 23:59 Intake Total 2305 / 2655 6250.31 / 6255.94 2276.58 / 2276.58 Output Total 3550 / 4300 2150 / 2150 Balance 2305 / 2205 2700.31 / 1955.94 126.58 / 126.58 Microbiology Past 72 Hours 06/07/19 20:20 Stool Stool Lactoferrin - Final 06/07/19 20:20 Stool C. difficile DNA Amplification - Final 06/06/19 20:55 Mucosa - Nasopharyngeal Respiratory Panel (PCR) - Preliminary 06/06/19 17:51 Urine, Clean Catch Legionella Antigen - Final 06/06/19 17:51 Urine, Clean Catch Streptococcus pneumoniae Antigen (M - Final Laboratory Results 06/06/19 14:00: Diff Path Review Reviewed 06/07/19 03:55: Diff Path Review Reviewed 06/07/19 22:45: Random Vancomycin 8.6 06/08/19 04:30: WBC 4.2 L, RBC 1.97 L, Hgb 8.7 L, Hct 24.2 L, MCV 122.8 H, MCH 44.2 H, MCHC 36.0, RDW Std Deviation 57.8 H, RDW Coeff of Jimmy 12.8, Plt Count 620 H, MPV 9.2 06/08/19 04:30: Sodium 144, Potassium 4.1, Chloride 116 H, Carbon Dioxide 22.0, Anion Gap 6, BUN 52 H, Creatinine 1.62 H, Estim Creat Clear Calc 56.86, Est GFR (MDRD) Af Amer 57 L, Est GFR (MDRD) Non-Af 47 L, BUN/Creatinine Ratio 32.1 H, Glucose 102, Calcium 7.8 L, Magnesium 1.8 Current Medications Acetaminophen (Tylenol) 650 mg PO Q6H PRN PRN PRN Reason: Pain Score 1-10/Temp > 100.7 F Al Hydroxide/Mg Hydroxide (Mylanta Ii) 30 ml PO Q6H PRN PRN PRN Reason: Gastric Burning Albuterol Sulfate (Ventolin Aerosols) 2.5 mg INHALATION Q2H PRN PRN PRN Reason: SOB/Wheezing Glucagon () 1 mg IM .X1 PRN PRN Reason: Hypoglycemia Guaifenesin (Robitussin) 10 ml PO Q4H PRN PRN PRN Reason: COUGH Heparin Sodium (Porcine) (Heparin Na) 5,000 unit SC Q12 [facility] Last Admin: 06/07/19 21:56 Dose: 5,000 unit Documented by: Hydralazine HCl (Apresoline Iv) 10 mg IV Q4H PRN PRN PRN Reason: SBP > 160 Hydroxyurea (Hydrea) 1,500 mg PO DAILY [facility] Last Admin: 06/07/19 10:50 Dose: 1,500 mg Documented by: Piperacillin Sod/Tazobactam (Sod 3.375 gm/ Sodium Chloride) 50 mls @ 12.5 mls/hr IV Q12 [facility] Last Infusion: 06/08/19 01:57 Dose: Infused Documented by: Sodium Chloride () 250 mls @ 15 mls/hr IV .[id number] PRN PRN Reason: Saline Flush Last Infusion: 06/08/19 04:25 Dose: 15 mls/hr Documented by: Sodium Chloride () 250 mls @ 15 mls/hr IV .[id number] PRN PRN Reason: Additional IVPB Infusion Dextrose (Dextrose 10%-Water) 250 mls @ 999 mls/hr IV .Q16M PRN; Protocol PRN Reason: HYPOGLYCEMIA Potassium Chloride 40 meq/ (Lactated Ringer's) 1,020 mls @ 150 mls/hr IV .[id number] [facility] Last Admin: 06/08/19 06:12 Dose: 150 mls/hr Documented by: Melatonin (Melatonin) 10 mg PO QHS [facility] Last Admin: 06/07/19 21:57 Dose: 10 mg Documented by: Nitroglycerin (Nitrostat) 0.4 mg SUBLINGUAL Q5M PRN PRN Reason: CARDIAC/CHEST PAIN Ondansetron HCl (Zofran) 4 mg IV Q8H PRN PRN PRN Reason: NAUSEA/VOMITING Prochlorperazine Edisylate (Compazine Iv) 5 mg IV Q4H PRN PRN PRN Reason: Breakthrough Nausea/Vomiting Sodium Chloride () 10 - 40 ml IV UD PRN PRN Reason: SALINE FLUSH Last Admin: 06/08/19 04:24 Dose: 20 ml Documented by: Throat Lozenges (Cepacol Sore Throat Lozenge) 1 lozenge MUCOUS MEM Q2H PRN PRN PRN Reason: SORE THROAT STROKE Vital Signs/Narrative: Vital Signs Temp Pulse Resp BP Pulse Ox 06/08/19 07:00 88 14 140/82 H 97 06/08/19 06:00 78 22 H 108/73 91 06/08/19 05:00 93 20 H 111/65 92 06/08/19 04:00 98.8 F 77 22 H 101/59 L 96 Medical Necessity - Tobacco Use Smoking Status: Never smoker Tobacco Use: Non-smoker Assessment/Plan All Active Problems Thrombocytosis (Acute) Severe sepsis (Acute) Hypoxia (Acute) Acute renal failure (ARF) (Acute) Community acquired pneumonia (Acute) Bronchospasm, acute (Acute) Bilateral pneumonia (Acute) Diarrhea (Acute) Acute respiratory failure with hypoxia (Acute) Patient is a 58-year-old gentleman admitted with progressive generalized weakness shortness of breath as well as cough. Imaging studies obtained on admission demonstrated Patchy alveolar infiltrate suspicious for early pneumonic infiltrates are seen in the left hilar region and both lung bases. An assessment of septic shock was made admitted to the intensive care unit for subsequent management 1. Septic shock secondary to pneumonia with suspected [id number] organisms - Blood and sputum acute respiratory panel sent. Patient was started on broad-spectrum antibiotic therapy with Zithromax Zosyn and vancomycin admitted to the intensive care unit. Patient resuscitated with IV fluids. With patient not responding to fluid patient was started on Levophed. -06/08/2019: Patient has been weaned off pressors. Cultures still pending. Acute viral respiratory panel negative to date. 2. Acute hypoxic respiratory failure secondary to pneumonia -management as discussed above -06/08/2019 management as discussed above. 3. Acute kidney injury - suspected to be secondary to combination of ATN from patient septic shock as well as prerenal azotemia from 10-day history of diarrhea. Is also taking HCTZ as well as lisinopril prior to being admitted. Patient being resuscitated with IV fluids with monitoring of electrolytes renal ultrasound obtained demonstrated normal ultrasound of the kidneys and urinary bladder -06/08/2019. Patient renal ultrasound demonstrated normal ultrasound of the kidneys as well as urinary bladder. Creatinine down to 1.56. 4. Hypokalemia -corrected per protocol 5. Hyponatremia ?Secondary to hypovolemic hyponatremia resuscitated with IV fluids with subsequent monitoring of electrolyte 6. Myeloproliferative disorder with chronic thrombocytosis - patient is on Hydrea did continue 7. COPD -Not in exacerbation 8. Hypertension ~Blood pressure was low on admission antihypertensives subsequently held 9. GERD - per History 10. History of nephro lithiasis ?Currently asymptomatic 11. DVT prophylaxis ?Patient is on heparin 12. Diarrhea ?06/08/2019. Suspected to be secondary to acute gastroenteritis with patient complaint of abdominal discomfort requested for CT of the abdomen with oral contrast for subsequent evaluation Code Visit Inpatient E&M: [id number] [facility] L3
[2019-06-08] MEDS: Hydroxyurea 500 MG Capsule 1500 MG PO (09:58)
[2019-06-08] MEDS: Heparin Injection (Vial) 5,000 UNIT/ML VIAL 5000 UNIT SC ×2 (09:59→22:17)
[2019-06-08] MEDS: MELATONIN 10 MG TABLET PO (22:17)
[2019-06-09] VITALS (17 sets, daily range): BP systolic 107–158; BP diastolic 68–104; PULSE 95–121; RESP 18–31; TEMP 36.7–37.3; O2SAT 88–97
[2019-06-09] MEDS: 0.9% Saline Lock 10 ML Syringe IV ×4 (06:50→14:00)
[2019-06-09] MEDS: Morphine 2 MG/ML Syringe IV (06:50)
[2019-06-09] MEDS: LORazepam 2 MG/ML Syringe 0.5 MG IV ×3 (07:25→22:30)
[2019-06-09] MEDS: Dextrose 10%-Water 250 ML 999 ML IV (07:28)
--- NOTE | 2019-06-09 07:34 | PN_ITS ---
Patient Problems: Active and Suspected Problems Thrombocytosis (Acute) Severe sepsis (Acute) Hypoxia (Acute) Acute renal failure (ARF) (Acute) Community acquired pneumonia (Acute) Bronchospasm, acute (Acute) Bilateral pneumonia (Acute) Diarrhea (Acute) Acute respiratory failure with hypoxia (Acute) Reason for Visit: Follow-up septic shock Subjective: Patient is a 58-year-old gentleman admitted with septic shock thought to be secondary to pneumonia. Patient was initially managed in intensive care unit stabilized and transferred to the regular nursing floor. He did complain of abdominal pain during the night. CT of the abdomen with oral contrast demonstrated Sigmoid diverticulitis with no signs of perforation or abscess. Bilateral patchy infiltrates through the lower lobes. No adjustments to patient treatment was made since patient is already on Zosyn. Patient did receive morphine around 7 AM. This was later followed by an episode where patient was found shivering in bed, tachypneic and tachycardic. Rapid response was called. Bedside blood glucose level came back to be 80. EKG obt ained demonstrated sinus tachycardia. An order was given for patient to receive 0.5 mg of Ativan, dextrose and patient transferred to the intensive care unit. Objective: GENERAL: Shaking HEENT: Atraumatic; EYES; Anicteric, Normal Conjunctiva NECK; supple, normal thyroid, RESPIRATORY: Diminished to auscultation, tachypneic CARDIOVASCULAR: Regular S1 S2, tachycardic GI: soft, normoactive bowel sounds, : No Renal angle tenderness; EXTREMITIES: No edema, no clubbing, MUSCULOSKELETAL: no muscle waisting NEURO: Awake; no lateralizing signs. SKIN: No Rash PSYCH; anxious Vitals/I&O's: Vital Signs Temp Pulse Resp BP Pulse Ox 98.8 F 95 18 115/75 93 06/09/19 06:00 06/09/19 06:00 06/09/19 06:00 06/09/19 06:00 06/09/19 06:00 Oxygen Flow Rate (L/min) 2 Oxygen Delivery Method Room Air Weight: 88.9 kg Body Mass Index (BMI) 27.1 Intake and Output for Last 24 Hours 06/07/19 06/08/19 06/09/19 23:59 23:59 23:59 Intake Total 6250.31 / 6255.94 4448.08 / 4848.08 2069 / 2070 Output Total 3550 / 4300 2450 / 2450 Balance 2700.31 / 1955.94 1997.08 / 2398.08 2069 Microbiology Past 72 Hours 06/07/19 20:20 Stool Enteric Bacteriology - Final 06/06/19 17:51 Stool Stool Occult Blood (CEM) - Final 06/06/19 14:05 Blood Culture (Wb) - Anticubital Right Blood Culture - Preliminary No growth in 48 hours. 06/06/19 14:00 Blood Culture (Wb) - Anticubital Left Blood Culture - Preliminary No growth in 48 hours. 06/06/19 17:51 Urine, Clean Catch Urine Culture - Preliminary Culture exhibits no growth. 06/07/19 20:20 Stool Stool Lactoferrin - Final 06/07/19 20:20 Stool C. difficile DNA Amplification - Final 06/06/19 20:55 Mucosa - Nasopharyngeal Respiratory Panel (PCR) - Preliminary 06/06/19 17:51 Urine, Clean Catch Legionella Antigen - Final 06/06/19 17:51 Urine, Clean Catch Streptococcus pneumoniae Antigen (M - Final Laboratory Results 06/09/19 06:41: WBC Pending, RBC Pending, Hgb Pending, Hct Pending, MCV Pending, MCH Pending, MCHC Pending, RDW Std Deviation Pending, RDW Coeff of Jimmy Pending, Plt Count Pending 06/09/19 06:41: Sodium Pending, Potassium Pending, Chloride Pending, Carbon Dioxide Pending, Anion Gap Pending, BUN Pending, Creatinine Pending, Est GFR (MDRD) Af Amer Pending, Est GFR (MDRD) Non-Af Pending, BUN/Creatinine Ratio Pending, Glucose Pending, Calcium Pending, Total Bilirubin Pending, Direct Bilirubin Pending, AST Pending, ALT Pending, Alkaline Phosphatase Pending, Total Protein Pending, Albumin Pending 06/09/19 06:41: Magnesium Pending Current Medications Acetaminophen (Tylenol) 650 mg PO Q6H PRN PRN PRN Reason: Pain Score 1-10/Temp > 100.7 F Al Hydroxide/Mg Hydroxide (Mylanta Ii) 30 ml PO Q6H PRN PRN PRN Reason: Gastric Burning Albuterol Sulfate (Ventolin Aerosols) 2.5 mg INHALATION Q2H PRN PRN PRN Reason: SOB/Wheezing Glucagon () 1 mg IM .X1 PRN PRN Reason: Hypoglycemia Guaifenesin (Robitussin) 10 ml PO Q4H PRN PRN PRN Reason: COUGH Heparin Sodium (Porcine) (Heparin Na) 5,000 unit SC Q12 [facility] Last Admin: 06/08/19 22:17 Dose: 5,000 unit Documented by: Hydralazine HCl (Apresoline Iv) 10 mg IV Q4H PRN PRN PRN Reason: SBP > 160 Hydroxyurea (Hydrea) 1,500 mg PO DAILY [facility] Last Admin: 06/08/19 09:58 Dose: 1,500 mg Documented by: Piperacillin Sod/Tazobactam (Sod 3.375 gm/ Sodium Chloride) 50 mls @ 12.5 mls/hr IV Q12 [facility] Last Infusion: 06/09/19 02:16 Dose: Infused Documented by: Sodium Chloride () 250 mls @ 15 mls/hr IV .[id number] PRN PRN Reason: Saline Flush Last Infusion: 06/08/19 09:58 Dose: Infused Documented by: Sodium Chloride () 250 mls @ 15 mls/hr IV .[id number] PRN PRN Reason: Additional IVPB Infusion Dextrose (Dextrose 10%-Water) 250 mls @ 999 mls/hr IV .Q16M PRN; Protocol PRN Reason: HYPOGLYCEMIA Last Admin: 06/09/19 07:28 Dose: 999 mls/hr Documented by: Potassium Chloride/Dextrose/Sod Cl (Kcl 20meq In D5.45ns 1000ml) 1,000 mls @ 150 mls/hr IV .Q6H40M [facility] Lorazepam (Ativan) 0.5 mg IV X1 ONE Stop: 06/09/19 07:32 Melatonin (Melatonin) 10 mg PO QHS [facility] Last Admin: 06/08/19 22:17 Dose: 10 mg Documented by: Nitroglycerin (Nitrostat) 0.4 mg SUBLINGUAL Q5M PRN PRN Reason: CARDIAC/CHEST PAIN Ondansetron HCl (Zofran) 4 mg IV Q8H PRN PRN PRN Reason: NAUSEA/VOMITING Prochlorperazine Edisylate (Compazine Iv) 5 mg IV Q4H PRN PRN PRN Reason: Breakthrough Nausea/Vomiting Sodium Chloride () 10 - 40 ml IV UD PRN PRN Reason: SALINE FLUSH Last Admin: 06/09/19 07:29 Dose: 10 ml Documented by: Throat Lozenges (Cepacol Sore Throat Lozenge) 1 lozenge MUCOUS MEM Q2H PRN PRN PRN Reason: SORE THROAT STROKE Vital Signs/Narrative: Vital Signs Temp Pulse Resp BP Pulse Ox 06/09/19 06:00 98.8 F 95 18 115/75 93 Medical Necessity - Tobacco Use Smoking Status: Never smoker Tobacco Use: Non-smoker Assessment/Plan All Active Problems Thrombocytosis (Acute) Severe sepsis (Acute) Hypoxia (Acute) Acute renal failure (ARF) (Acute) Community acquired pneumonia (Acute) Bronchospasm, acute (Acute) Bilateral pneumonia (Acute) Diarrhea (Acute) Acute respiratory failure with hypoxia (Acute) Patient is a 58-year-old gentleman admitted with progressive generalized weakness shortness of breath as well as cough. Imaging studies obtained on admission demonstrated Patchy alveolar infiltrate suspicious for early pneumonic infiltrates are seen in the left hilar region and both lung bases. An assessment of septic shock was made admitted to the intensive care unit for subsequent management 1. Septic shock secondary to pneumonia with suspected [id number] organisms - Blood and sputum acute respiratory panel sent. Patient was started on broad- spectrum antibiotic therapy with Zithromax Zosyn and vancomycin admitted to the intensive care unit. Patient resuscitated with IV fluids. With patient not responding to fluid patient was started on Levophed. -06/08/2019: Patient has been weaned off pressors. Cultures still pending. Acute viral respiratory panel negative to date. -06/09/2019: Patient was transferred from the ICU to [facility] floor the day prior however after patient went into an episode of significant rigors with elevated temperature patient was sent back to the ICU. Repeat blood cultures obtained. 2. Acute hypoxic respiratory failure secondary to pneumonia -management as discussed above -06/08/2019 management as discussed above. 3. Acute kidney injury - suspected to be secondary to combination of ATN from patient septic shock as well as prerenal azotemia from 10-day history of diarrhea. Is also taking HCTZ as well as lisinopril prior to being admitted. Patient being resuscitated with IV fluids with monitoring of electrolytes renal ultrasound obtained demonstrated normal ultrasound of the kidneys and urinary bladder -06/08/2019. Patient renal ultrasound demonstrated normal ultrasound of the kidneys as well as urinary bladder. Creatinine down to 1.56. 06/09/2019. Acute kidney injury resolved 4. Hypokalemia -corrected per protocol 5. Hyponatremia ?Secondary to hypovolemic hyponatremia resuscitated with IV fluids with subsequent monitoring of electrolyte 6. Myeloproliferative disorder with chronic thrombocytosis - patient is on Hydrea did continue 7. COPD -Not in exacerbation 8. Hypertension ~Blood pressure was low on admission antihypertensives subsequently held 9. GERD - per History 10. History of nephro lithiasis ?Currently asymptomatic 11. DVT prophylaxis ?Patient is on heparin 12. Diarrhea ?06/08/2019. Suspected to be secondary to acute gastroenteritis with patient complaint of abdominal discomfort requested for CT of the abdomen with oral contrast for subsequent evaluation 06/09/2019: CT of the abdomen obtained demonstrated evidence of sigmoid div erticulitis. Patient already on appropriate treatment with Zosyn. Code Visit Inpatient E&M: 07819 Subs Hosp L3
[2019-06-09 07:35] LABS: Hematocrit 25.5 % (40-54); Hemoglobin 9.2 g/dL (13.0-16.5); Mean Corp Hgb Conc 36.1 g/dL (32-36); Mean Corpuscular Hgb 45.8 pg (27.0-32.0); Mean Corpuscular Volume 126.9 fL (80-94); Mean Platelet Vol. 8.9 fl (6.2-12.0); Platelet Count 679 K/mm3 (150-450); RBC Distribution Width CV 12.6 % (11.6-14.6); RBC Distribution Width SD 58.8 fl (35.1-43.9); Red Blood Count 2.01 M/mm3 (4.6-6.2)
[2019-06-09 07:41] LABS: Bedside Glucose 80 mg/dL (70-110)
--- NOTE | 2019-06-09 07:47 | NURSING ---
This nurse and night shift supervisor nurse walked in to round on pt this morning around 0715/0720 and pt was shaking continously. I think I'm having a reaction to the Morphine. Pt stated he has morphine before and never had a reaction. Vital Signs taken by night shift supervisor nurse and HR was in the 140's. Called [employer]IVE TR[employer] TECHNICIAN. 02 NC applied at 2L. 12 lead EKG obtained. BS was 80. Dr. Freire wanted to transfer to ICU. Madhuri JOHNSON from ICU and Pardeep FigueroaLayboy Operator brought patient via bed down to ICU.
[2019-06-09 07:49] LABS: Absolute Lymphocyte Count 0.34 X10^3/uL (0.83-4.51); Absolute Neutrophil Count 3.4 X10^3/uL (2.0-7.7); Basophil# 0.01 X10^3/uL; Basophil% 0.3 % (0-1); Eosinophil# 0.04 X10^3/uL; Lymphocyte # 0.34 X10^3/ul (4.0); Lymphocyte % 8.5 % (19-41); Magnesium 1.3 mg/dL (1.6-2.6); Monocyte# 0.13 X10^3/uL; Monocyte% 3.3 % (0-10); NRBC Flagged by Analyzer 0 % (0-5); Neutrophil # 3.44 X10^3/uL (2.7-7.7); Neutrophil % 86.1 % (47-70); POSITIVE DIFFERENTIAL YES
[2019-06-09 07:52] LABS: AST(SGOT) 31 U/L (15-37); Alanine Aminotransfer ALT/SGPT 33 U/L (16-61); Albumin, Serum 1.9 g/dL (3.2-5.0); Alkaline Phosphatase 122 U/L (45-117); Anion Gap 7 (5-15); BUN 23 mg/dL (7-18); BUN/Creat Ratio 19.8 RATIO (10-20); Bilirubin, Direct 0.35 mg/dL (0.00-0.30); Calcium,Total 7.8 mg/dL (8.5-10.1); Chloride 115 mmol/L (98-107); Creatinine, Serum 1.16 mg/dL (0.70-1.30); Differential Indicated SCAN CRITERIA MET; EST Glomerular Filtration Rate 69 mL/min (>60); Est Glom Filt Rate - Afr Amer 83 mL/min (>60); Globulin 3.7 g/dL (2.2-4.2); Glucose 98 mg/dL (74-106); Potassium 4.6 mmol/L (3.5-5.1); Protein, Total 5.6 g/dL (6.4-8.2); Sodium Level 143 mmol/L (136-145)
[2019-06-09 08:17] LABS: Hypochromasia 1+; Macrocytosis 2+; Platelet Estimate MKD INC (ADEQ)
[2019-06-09] MEDS: Hydroxyurea 500 MG Capsule 1500 MG PO (10:29)
[2019-06-09] MEDS: Heparin Injection (Vial) 5,000 UNIT/ML VIAL 5000 UNIT SC ×2 (10:29→22:30)
--- NOTE | 2019-06-09 15:16 | NURSING ---
REPORT CALLED TO ANGUS LANDAVERDE RN AT [phone]
[2019-06-09] MEDS: MELATONIN 10 MG TABLET PO (22:30)
--- NOTE | 2019-06-09 22:44 | CT_ITS ---
STUDY: CT ABDOMEN AND PELVIS WITHOUT CONTRAST REASON FOR EXAM: Male, 58 years old. SEPSIS, RESPIRATORY FAILURE, [place], DIARRHEA X 11 DAYS, LOWER ABD PAIN, PNEUMONIA RADIATION DOSAGE (If Supplied By Facility): CTDIvol = ( 14.04 ) mGy, DLP = ( 774.97 ) mGycm TECHNIQUE: Transaxial images were obtained from the dome of the diaphragm to the symphysis pubis without oral contrast, and without intravenous contrast. Sagittal and coronal images were reconstructed. Individualized dose optimization techniques were used for this CT. COMPARISON: None. FINDINGS: Diffuse patchy opacities in the bilateral lower lobes in the distribution of the subacromial region and perihilar spaces along the bronchial distribution compatible with pneumonia. Coronary artery calcifications noted. Mild diffuse fatty liver, otherwise normal liver. The gallbladder is contracted. Splenomegaly, spleen measuring 15.8 cm. Normal pancreas. Normal bilateral adrenal glands. Nonspecific bilateral perinephric stranding. Small stone within the lower pole measuring 1.2 mm and. Otherwise normal right kidney. Small stone within the mid lower pole of the left kidney measuring 1.3 mm. Otherwise normal left kidney. Stomach is decompressed with a moderate hiatal hernia. Normal small intestine. There is multilevel diverticulosis with inflammatory changes of the peritoneum surrounding the sigmoid with thickening of the wall consistent with diverticulitis. No signs of perforation. No abscess. The appendix is visualized and appears normal. There is diffuse atherosclerotic calcification of the abdominal aorta, without a demonstrated aneurysm. Normal inferior vena cava. Normal retroperitoneum. Normal urinary bladder. Normal size of prostate gland. Normal abdominal wall. Multilevel degenerative disease of the spine. Narrowing of disc space at L4-L5. CT/Abdomen/Pel W ORAL Cont Only IMPRESSION: Sigmoid diverticulitis with no signs of perforation or abscess. Bilateral patchy infiltrates through the lower lobes. Splenomegaly. Diffuse fatty liver. Contracted gallbladder with no biliary distention. Nonobstructive intrarenal stones. Moderate hiatal hernia. Electronically Signed: Abbie Rangel MD at 2:24 EST , Service support ,
[2019-06-10] VITALS (7 sets, daily range): BP systolic 112–134; BP diastolic 76–84; PULSE 96–101; RESP 18–20; TEMP 37.1–38; O2SAT 86–95
[2019-06-10 06:31] LABS: Hematocrit 24.4 % (40-54); Hemoglobin 8.4 g/dL (13.0-16.5); Mean Corp Hgb Conc 34.4 g/dL (32-36); Mean Corpuscular Hgb 43.5 pg (27.0-32.0); Mean Corpuscular Volume 126.4 fL (80-94); Mean Platelet Vol. 8.8 fl (6.2-12.0); Platelet Count 595 K/mm3 (150-450); RBC Distribution Width CV 12.6 % (11.6-14.6); RBC Distribution Width SD 57.9 fl (35.1-43.9); Red Blood Count 1.93 M/mm3 (4.6-6.2)
[2019-06-10 06:43] LABS: Anion Gap 7 (5-15); BUN 14 mg/dL (7-18); BUN/Creat Ratio 11.7 RATIO (10-20); Calcium,Total 7.5 mg/dL (8.5-10.1); Chloride 111 mmol/L (98-107); EST Glomerular Filtration Rate 66 mL/min (>60); Est Glom Filt Rate - Afr Amer 80 mL/min (>60); Estimated Creatinine Clearance 76.76 ml/min; Glucose 103 mg/dL (74-106); Potassium 4.3 mmol/L (3.5-5.1); Sodium Level 139 mmol/L (136-145)
--- NOTE | 2019-06-10 08:16 | PN_ITS ---
Patient Problems: Active and Suspected Problems Thrombocytosis (Acute) Severe sepsis (Acute) Hypoxia (Acute) Acute renal failure (ARF) (Acute) Community acquired pneumonia (Acute) Bronchospasm, acute (Acute) Bilateral pneumonia (Acute) Diarrhea (Acute) Acute respiratory failure with hypoxia (Acute) Reason for Visit: Follow-up on septic shock Subjective: Patient was seen and examined. He complained of hematuria - he noticed 4 drops of blood when he was straining to urinate. Denies any fever, chills, SOB, dysuria. Objective: Physical exam: Vitals/I&O's: Vital Signs Temp Pulse Resp BP Pulse Ox 99.9 F H 101 H 18 112/76 92 06/10/19 04:30 06/10/19 04:30 06/10/19 04:30 06/10/19 04:30 06/10/19 04:30 Oxygen Flow Rate (L/min) 2 Oxygen Delivery Method Room Air Weight: 95 kg Body Mass Index (BMI) 27.1 Intake and Output for Last 24 Hours 06/08/19 06/09/19 06/10/19 23:59 23:59 23:59 Intake Total 4448.08 / 4848.08 4862.5 / 4862.5 154 / 154 Output Total 2450 / 2450 100 / 100 Balance 1998.08 / 2398.08 4762.5 / 4762.5 154 / 154 General: Alert, Oriented x3, Cooperative, No apparent distress HEENT: Atraumatic, PERRLA, EOMI, Normocephalic Oral: Moist Mucosa Neck: Supple Lungs: Clear to auscultation, Normal air movement Cardiovascular: Regular rate, Regular Rhythm, Normal S1, Normal S2, No murmurs Abdomen: Bowel Sounds Present, Soft, Non-Distended, No Hepato-splenomegaly, Tender - slight left lower quadrant tenderness Extremities: No edema Skin: No rashes, No breakdown Musculoskeletal: No Tenderness to Palpation of Joints or Extremities Lymphatic: No Cervical, Supraclavicular, or Inguinal Adenopathy Neurological: Cranial nerves II-XII grossly intact Psych/Mental Status: Normal Affect, Appropriate Microbiology Past 72 Hours 06/06/19 17:51 Urine, Clean Catch Urine Culture - Final Mixed Gram Positive Organisms 06/07/19 20:20 Stool Enteric Bacteriology - Final 06/06/19 17:51 Stool Stool Occult Blood (CEM) - Final 06/06/19 14:05 Blood Culture (Wb) - Anticubital Right Blood Culture - Prel iminary No growth in 48 hours. 06/06/19 14:00 Blood Culture (Wb) - Anticubital Left Blood Culture - Preliminary No growth in 48 hours. 06/07/19 20:20 Stool Stool Lactoferrin - Final 06/07/19 20:20 Stool C. difficile DNA Amplification - Final 06/06/19 20:55 Mucosa - Nasopharyngeal Respiratory Panel (PCR) - Preliminary Laboratory Results 06/09/19 06:41: Diff Path Review August foll, Platelet Estimate [employer], Hypochromasia 1+, Macrocytosis 2+ 06/10/19 05:12: WBC 3.0 L, RBC 1.93 L, Hgb 8.4 L, Hct 24.4 L, MCV 126.4 H, MCH 43.5 H, MCHC 34.4, RDW Std Deviation 57.9 H, RDW Coeff of Jimmy 12.6, Plt Count 595 H, MPV 8.8 06/10/19 05:12: Sodium 139, Potassium 4.3, Chloride 111 H, Carbon Dioxide 21.0, Anion Gap 7, BUN 14, Creatinine 1.20, Estim Creat Clear Calc 76.76, Est GFR (MDRD) Af Amer 80, Est GFR (MDRD) Non-Af 66, BUN/Creatinine Ratio 11.7, Glucose 103, Calcium 7.5 L Current Medications Acetaminophen (Tylenol) 650 mg PO Q6H PRN PRN PRN Reason: Pain Score 1-10/Temp > 100.7 F Al Hydroxide/Mg Hydroxide (Mylanta Ii) 30 ml PO Q6H PRN PRN PRN Reason: Gastric Burning Albuterol Sulfate (Ventolin Aerosols) 2.5 mg INHALATION Q2H PRN PRN PRN Reason: SOB/Wheezing Glucagon () 1 mg IM .X1 PRN PRN Reason: Hypoglycemia Guaifenesin (Robitussin) 10 ml PO Q4H PRN PRN PRN Reason: COUGH Heparin Sodium (Porcine) (Heparin Na) 5,000 unit SC Q12 [facility] Last Admin: 06/09/19 22:30 Dose: 5,000 unit Documented by: Hydralazine HCl (Apresoline Iv) 10 mg IV Q4H PRN PRN PRN Reason: SBP > 160 Hydroxyurea (Hydrea) 1,500 mg PO DAILY [facility] Last Admin: 06/09/19 10:29 Dose: 1,500 mg Documented by: Piperacillin Sod/Tazobactam (Sod 3.375 gm/ Sodium Chloride) 50 mls @ 12.5 mls/hr IV Q12 [facility] Last Infusion: 06/10/19 03:06 Dose: Infused Documented by: Sodium Chloride () 250 mls @ 15 mls/hr IV .[id number] PRN PRN Reason: Saline Flush Last Infusion: 06/08/19 09:58 Dose: Infused Documented by: Sodium Chloride () 250 mls @ 15 mls/hr IV .[id number] PRN PRN Reason: Additional IVPB Infusion Dextrose (Dextrose 10%-Water) 250 mls @ 999 mls/hr IV .Q16M PRN; Protocol PRN Reason: HYPOGLYCEMIA Last Infusion: 06/09/19 07:44 Dose: Infused Documented by: Potassium Chloride/Dextrose/Sod Cl (Kcl 20meq In D5.45ns 1000ml) 1,000 mls @ 150 mls/hr IV .Q6H40M [facility] Last Infusion: 06/10/19 01:54 Dose: 150 mls/hr Documented by: Lorazepam (Ativan) 0.5 mg IV Q6H PRN PRN PRN Reason: ANXIETY Last Admin: 06/09/19 22:30 Dose: 0.5 mg Documented by: Melatonin (Melatonin) 10 mg PO QHS [facility] Last Admin: 06/09/19 22:30 Dose: 10 mg Documented by: Nitroglycerin (Nitrostat) 0.4 mg SUBLINGUAL Q5M PRN PRN Reason: CARDIAC/CHEST PAIN Ondansetron HCl (Zofran) 4 mg IV Q8H PRN PRN PRN Reason: NAUSEA/VOMITING Prochlorperazine Edisylate (Compazine Iv) 5 mg IV Q4H PRN PRN PRN Reason: Breakthrough Nausea/Vomiting Sodium Chloride () 10 - 40 ml IV UD PRN PRN Reason: SALINE FLUSH Last Admin: 06/09/19 14:00 Dose: 10 ml Documented by: Throat Lozenges (Cepacol Sore Throat Lozenge) 1 lozenge MUCOUS MEM Q2H PRN PRN PRN Reason: SORE THROAT STROKE Vital Signs/Narrative: Vital Signs Temp Pulse Resp BP Pulse Ox 06/10/19 04:30 99.9 F H 101 H 18 112/76 92 Medical Necessity - Tobacco Use Smoking Status: Never smoker Tobacco Use: Non-smoker Assessment/Plan All Active Problems Thrombocytosis (Acute) Severe sepsis (Acute) Hypoxia (Acute) Acute renal failure (ARF) (Acute) Community acquired pneumonia (Acute) Bronchospasm, acute (Acute) Bilateral pneumonia (Acute) Diarrhea (Acute) Acute respiratory failure with hypoxia (Acute) 1. Septic shock secondary to pneumonia, resolved Blood and sputum cultures, respiratory panel negative Continue on IV Zosyn 2. Acute hypoxic respiratory failure secondary to pneumonia, resolved, Patient is not on oxygen 3. Acute kidney injury secondary to ATN/dehydration, improved Admitting Cr is 3.28, Cr is 1.20 today Will trend labs 4. Hypokalemia/hyponatremia/hypomagnesemia, resolved. 5. Myeloproliferative disorder with chronic thrombocytosis, on Hydrea 6. Hypertension, controlled, BP meds on hold for now Will continue to monitor 7. DVT PPx- Heparin SC Code Visit Inpatient E&M: 40426 Subs Hosp L2
[2019-06-10] MEDS: Heparin Injection (Vial) 5,000 UNIT/ML VIAL 5000 UNIT SC ×2 (09:53→21:27)
[2019-06-10] MEDS: Hydroxyurea 500 MG Capsule 1500 MG PO (09:53)
--- NOTE | 2019-06-10 10:54 | NURSING ---
At shift change was notified by patient and camp dishwasher RN that pt has been complaining about bed being uncomfortable. Pt tall in stature and foot of bed would not elongate. This RN spoke with VINOD Galo about possible bed change. Iraj obtained new bed and assisted pt with transfer to new bed. Pt thankful and states he is much more comfortable. This RN entered room and checked vitals- pt drowsy and spo2 86%. 2L humidified oxygen applied with pt permission. A few minutes later pt received phone call asking about his care he stated, let me call you back later when I am alone, my nurse is in here. Meds given and vitals completed. Pt denied further needs.
--- NOTE | 2019-06-10 12:29 | PCM.PN.REN ---
Patient Problems: Active and Suspected Problems Thrombocytosis (Acute) Severe sepsis (Acute) Hypoxia (Acute) Acute renal failure (ARF) (Acute) Community acquired pneumonia (Acute) Bronchospasm, acute (Acute) Bilateral pneumonia (Acute) Diarrhea (Acute) Acute respiratory failure with hypoxia (Acute) Subjective: not feeling well. Still with diarrhea, abdominal discomfort. Remains on hydrea. Repeat CT abdomen ordered by primary service. Cx negative. Renal function return to baseline. Remains on iv fluids due to persistent diarrhea, poor appetite. - Physical Exam Vitals/I&O's: Vital Signs Temp Pulse Resp BP Pulse Ox 99.6 F H 96 18 122/78 H 95 06/10/19 11:44 06/10/19 11:44 06/10/19 11:44 06/10/19 11:44 06/10/19 11:44 Oxygen Flow Rate (L/min) 2 Oxygen Delivery Method Nasal Cannula Weight: 95 kg Body Mass Index (BMI) 27.1 Intake and Output for Last 24 Hours 06/08/19 06/09/19 06/10/19 23:59 23:59 23:59 Intake Total 4448.08 / 4848.08 4862.5 / 4862.5 1561.5 / 1561.5 Output Total 2450 / 2450 100 / 100 Balance 1998.08 / 2398.08 4762.5 / 4762.5 1561.5 / 1561.5 General: Alert, Oriented x3, - - weak Oral: Dry Mucosa Lungs: Clear to auscultation Cardiovascular: Regular rate Abdomen: Bowel Sounds Present, Soft, Non-Distended, Tender Extremities: No edema Skin: No rashes Psych/Mental Status: Flat Affect, Depressed, Alert and oriented to time, place, person, mood and affect Microbiology Past 72 Hours 06/06/19 17:51 Urine, Clean Catch Urine Culture - Final Mixed Gram Positive Organisms 06/07/19 20:20 Stool Enteric Bacteriology - Final 06/06/19 17:51 Stool Stool Occult Blood (CEM) - Final 06/06/19 14:05 Blood Culture (Wb) - Anticubital Right Blood Culture - Preliminary No growth in 48 hours. 06/06/19 14:00 Blood Culture (Wb) - Anticubital Left Blood Culture - Preliminary No growth in 48 hours. 06/07/19 20:20 Stool Stool Lactoferrin - Final 06/07/19 20:20 Stool C. difficile DNA Amplification - Final 06/06/19 20:55 Mucosa - Nasopharyngeal Respiratory Panel (PCR) - Preliminary Laboratory Results 06/10/19 05:12: WBC 3.0 L, RBC 1.93 L, Hgb 8.4 L, Hct 24.4 L, MCV 126.4 H, MCH 43.5 H, MCHC 34.4, RDW Std Deviation 57.9 H, RDW Coeff of Jimmy 12.6, Plt Count 595 H, MPV 8.8 06/10/19 05:12: Sodium 139, Potassium 4.3, Chloride 111 H, Carbon Dioxide 21.0, Anion Gap 7, BUN 14, Creatinine 1.20, Estim Creat Clear Calc 76.76, Est GFR (MDRD) Af Amer 80, Est GFR (MDRD) Non-Af 66, BUN/Creatinine Ratio 11.7, Glucose 103, Calcium 7.5 L Current Medications Acetaminophen (Tylenol) 650 mg PO Q6H PRN PRN PRN Reason: Pain Score 1-10/Temp > 100.7 F Al Hydroxide/Mg Hydroxide (Mylanta Ii) 30 ml PO Q6H PRN PRN PRN Reason: Gastric Burning Albuterol Sulfate (Ventolin Aerosols) 2.5 mg INHALATION Q2H PRN PRN PRN Reason: SOB/Wheezing Glucagon () 1 mg IM .X1 PRN PRN Reason: Hypoglycemia Guaifenesin (Robitussin) 10 ml PO Q4H PRN PRN PRN Reason: COUGH Heparin Sodium (Porcine) (Heparin Na) 5,000 unit SC Q12 [facility] Last Admin: 06/10/19 09:53 Dose: 5,000 unit Documented by: Hydralazine HCl (Apresoline Iv) 10 mg IV Q4H PRN PRN PRN Reason: SBP > 160 Hydroxyurea (Hydrea) 1,500 mg PO DAILY [facility] Last Admin: 06/10/19 09:53 Dose: 1,500 mg Documented by: Sodium Chloride () 250 mls @ 15 mls/hr IV .[id number] PRN PRN Reason: Saline Flush Last Infusion: 06/08/19 09:58 Dose: Infused Documented by: Sodium Chloride () 250 mls @ 15 mls/hr IV .[id number] PRN PRN Reason: Additional IVPB Infusion Dextrose (Dextrose 10%-Water) 250 mls @ 999 mls/hr IV .Q16M PRN; Protocol PRN Reason: HYPOGLYCEMIA Last Infusion: 06/09/19 07:44 Dose: Infused Documented by: Potassium Chloride/Dextrose/Sod Cl (Kcl 20meq In D5.45ns 1000ml) 1,000 mls @ 150 mls/hr IV .Q6H40M [facility] Last Admin: 06/10/19 09:50 Dose: 150 mls/hr Documented by: Piperacillin Sod/Tazobactam (Sod 3.375 gm/ Sodium Chloride) 50 mls @ 12.5 mls/hr IV Q8 [facility] Lorazepam (Ativan) 0.5 mg IV Q6H PRN PRN PRN Reason: ANXIETY Last Admin: 06/09/19 22:30 Dose: 0.5 mg Documented by: Melatonin (Melatonin) 10 mg PO QHS [facility] Last Admin: 06/09/19 22:30 Dose: 10 mg Documented by: Nitroglycerin (Nitrostat) 0.4 mg SUBLINGUAL Q5M PRN PRN Reason: CARDIAC/CHEST PAIN Nutritional Formula (Lactose Free) (Ensure Enlive) 120 ml PO 4X/DAY [facility] Ondansetron HCl (Zofran) 4 mg IV Q8H PRN PRN PRN Reason: NAUSEA/VOMITING Prochlorperazine Edisylate (Compazine Iv) 5 mg IV Q4H PRN PRN PRN Reason: Breakthrough Nausea/Vomiting Sodium Chloride () 10 - 40 ml IV UD PRN PRN Reason: SALINE FLUSH Last Admin: 06/09/19 14:00 Dose: 10 ml Documented by: Throat Lozenges (Cepacol Sore Throat Lozenge) 1 lozenge MUCOUS MEM Q2H PRN PRN PRN Reason: SORE THROAT Medical Necessity - Tobacco Use Smoking Status: Never smoker Tobacco Use: Non-smoker Assessment/Plan All Active Problems Thrombocytosis (Acute) Severe sepsis (Acute) Hypoxia (Acute) Acute renal failure (ARF) (Acute) Community acquired pneumonia (Acute) Bronchospasm, acute (Acute) Bilateral pneumonia (Acute) Diarrhea (Acute) Acute respiratory failure with hypoxia (Acute) 1. Acute kidney injury due to hypotension from profound dehydration. Creatinine improved to baseline at 1.2 today. Continue with IV fluids for persistent diarrhea. 2. Acute viral illness. culture no growth so far. 3. Hypokalemia, hypomag due to poor intake, acute diarrhea. Replace as needed 4. Acute diarrhea stool culture neg for cdiff. 5. Sepsis syndrome blood culture no growth so far. 6. Elevated liver enzymes resolved 7. thrombocytosis on hydrea 8. Anemia prbc as needed. Consider hematology consult. Defer to primary service
[2019-06-10 13:59] LABS: Magnesium 1.9 mg/dL (1.6-2.6)
[2019-06-10] MEDS: Magnesium Sulfate 1 GM in 0.9% Normal Saline 100 ML IV (19:53)
[2019-06-10] MEDS: 0.9% Saline Lock 10 ML Syringe IV (19:53)
[2019-06-10] MEDS: MELATONIN 10 MG TABLET PO (21:18)
[2019-06-11] VITALS (8 sets, daily range): BP systolic 108–126; BP diastolic 68–83; PULSE 90–99; RESP 17–18; TEMP 36.4–37.1; O2SAT 93–97
[2019-06-11 05:52] LABS: Absolute Lymphocyte Count 0.36 X10^3/uL (0.83-4.51); Absolute Neutrophil Count 2.6 X10^3/uL (2.0-7.7); Eosinophil# 0.05 X10^3/uL; Eosinophils% 1.5 % (0-5); Hematocrit 23.7 % (40-54); Hemoglobin 8.2 g/dL (13.0-16.5); Lymphocyte # 0.36 X10^3/ul (4.0); Lymphocyte % 11.1 % (19-41); Mean Corp Hgb Conc 34.6 g/dL (32-36); Mean Corpuscular Hgb 43.9 pg (27.0-32.0); Mean Corpuscular Volume 126.7 fL (80-94); Mean Platelet Vol. 8.8 fl (6.2-12.0); Monocyte% 6.2 % (0-10); NRBC Flagged by Analyzer 0 % (0-5); Neutrophil # 2.59 X10^3/uL (2.7-7.7); POSITIVE DIFFERENTIAL YES; Platelet Count 558 K/mm3 (150-450); RBC Distribution Width CV 12.3 % (11.6-14.6); RBC Distribution Width SD 56.7 fl (35.1-43.9); Red Blood Count 1.87 M/mm3 (4.6-6.2); White Blood Count 3.2 K/mm3 (4.4-11.0)
[2019-06-11 06:12] LABS: ALB/GLOB Ratio 0.5 RATIO (0.9-2.4); AST(SGOT) 24 U/L (15-37); Alanine Aminotransfer ALT/SGPT 26 U/L (16-61); Albumin, Serum 1.8 g/dL (3.2-5.0); Alkaline Phosphatase 105 U/L (45-117); Anion Gap 5 (5-15); BUN 11 mg/dL (7-18); BUN/Creat Ratio 9.4 RATIO (10-20); Calcium,Total 7.6 mg/dL (8.5-10.1); Chloride 111 mmol/L (98-107); Creatinine, Serum 1.17 mg/dL (0.70-1.30); EST Glomerular Filtration Rate 68 mL/min (>60); Est Glom Filt Rate - Afr Amer 83 mL/min (>60); Estimated Creatinine Clearance 78.72 ml/min; Globulin 3.7 g/dL (2.2-4.2); Glucose 100 mg/dL (74-106); Magnesium 1.9 mg/dL (1.6-2.6); Potassium 4.3 mmol/L (3.5-5.1); Protein, Total 5.5 g/dL (6.4-8.2); Sodium Level 139 mmol/L (136-145)
[2019-06-11 06:38] LABS: Differential Indicated SCAN CRITERIA MET
[2019-06-11 07:05] LABS: Anisocytosis 1+; Macrocytosis 3+; Platelet Estimate SLT INC (ADEQ); Spherocyte 1+
[2019-06-11] MEDS: 0.9% Saline Lock 10 ML Syringe IV (09:27)
[2019-06-11] MEDS: Heparin Injection (Vial) 5,000 UNIT/ML VIAL 5000 UNIT SC ×2 (09:55→21:28)
[2019-06-11] MEDS: Hydroxyurea 500 MG Capsule 1500 MG PO (09:55)
[2019-06-11 10:03] LABS: Pathologist Review Reviewed
[2019-06-11] MEDS: Loperamide 2 MG Capsule 4 MG PO (12:52)
--- NOTE | 2019-06-11 13:27 | NURSING ---
Student documentation reviewed.
[2019-06-11] MEDS: MELATONIN 10 MG TABLET PO (23:06)
[2019-06-12] VITALS (7 sets, daily range): BP systolic 109–134; BP diastolic 71–91; PULSE 86–90; RESP 16–20; TEMP 36.6–37; O2SAT 94–96
--- NOTE | 2019-06-12 04:05 | PCM.PN.BLA ---
Progress Note Blood per rectum. Stop heparin for DVT prophylaxis. Continue SCD. Protonix IV twice daily. Trend H&H every 8 hours x 2.
[2019-06-12 05:21] LABS: Hematocrit 22.3 % (40-54); Hemoglobin 7.9 g/dL (13.0-16.5)
--- NOTE | 2019-06-12 07:48 | PCM.PN.HOSP ---
Patient Problems: Active and Suspected Problems Thrombocytosis (Acute) Severe sepsis (Acute) Hypoxia (Acute) Acute renal failure (ARF) (Acute) Community acquired pneumonia (Acute) Bronchospasm, acute (Acute) Bilateral pneumonia (Acute) Diarrhea (Acute) Acute respiratory failure with hypoxia (Acute) Reason for Visit: Follow-up on abdominal pain Subjective: Late entry note: Patient was seen and examined on 06/11/19 Patient was seen and examined. He felt improved. Had 5 BM, liquid, small. Overall he felt well Objective: Physical exam: General: Alert, Oriented x3, Cooperative, No apparent distress HEENT: Atraumatic, PERRLA, EOMI, Normocephalic Oral: Moist Mucosa Neck: Supple Lungs: Clear to auscultation, Normal air movement Cardiovascular: Regular rate, Regular Rhythm, Normal S1, Normal S2, No murmurs Abdomen: Bowel Sounds Present, Soft, Non-Distended, No Hepato-splenomegaly, Tender - slight left lower quadrant tenderness Extremities: No edema Skin: No rashes, No breakdown Musculoskeletal: No Tenderness to Palpation of Joints or Extremities Lymphatic: No Cervical, Supraclavicular, or Inguinal Adenopathy Neurological: Cranial nerves II-XII grossly intact Psych/Mental Status: Normal Affect, Appropriate Vitals/I&O's: Vital Signs Temp Pulse Resp BP Pulse Ox 98.4 F 90 18 132/87 H 94 06/12/19 03:30 06/12/19 03:30 06/12/19 03:30 06/12/19 03:30 06/12/19 03:30 Oxygen Flow Rate (L/min) 2 Oxygen Delivery Method Room Air Weight: 85.3 kg Body Mass Index (BMI) 27.1 Intake and Output for Last 24 Hours 06/10/19 06/11/19 06/12/19 23:59 23:59 23:59 Intake Total 3318.75 / 3318.75 2787.5 / 2787.5 215.00 / 215.00 Balance 3318.75 / 3318.75 2787.5 / 2787.5 215.00 / 215.00 Microbiology Past 72 Hours 06/06/19 14:00 Blood Culture (Wb) - Anticubital Left Blood Culture - Final No growth in 5 days. 06/06/19 14:05 Blood Culture (Wb) - Anticubital Right Blood Culture - Final No growth in 5 days. 06/06/19 17:51 Urine, Clean Catch Urine Culture - Final Mixed Gram Positive Organisms Laboratory Results 06/09/19 06:41: Diff Path Review Reviewed 06/12/19 04:54: Hgb 7.9 L, Hct 22.3 L Current Medications Acetaminophen (Tylenol) 650 mg PO Q6H PRN PRN PRN Reason: Pain Score 1-10/Temp > 100.7 F Al Hydroxide/Mg Hydroxide (Mylanta Ii) 30 ml PO Q6H PRN PRN PRN Reason: Gastric Burning Albuterol Sulfate (Ventolin Aerosols) 2.5 mg INHALATION Q2H PRN PRN PRN Reason: SOB/Wheezing Glucagon () 1 mg IM .X1 PRN PRN Reason: Hypoglycemia Guaifenesin (Robitussin) 10 ml PO Q4H PRN PRN PRN Reason: COUGH Hydralazine HCl (Apresoline Iv) 10 mg IV Q4H PRN PRN PRN Reason: SBP > 160 Hydroxyurea (Hydrea) 1,500 mg PO DAILY [facility] Last Admin: 06/11/19 09:55 Dose: 1,500 mg Documented by: Sodium Chloride () 250 mls @ 15 mls/hr IV .[id number] PRN PRN Reason: Saline Flush Last Infusion: 06/12/19 05:22 Dose: 0 mls/hr Documented by: Sodium Chloride () 250 mls @ 15 mls/hr IV .[id number] PRN PRN Reason: Additional IVPB Infusion Dextrose (Dextrose 10%-Water) 250 mls @ 999 mls/hr IV .Q16M PRN; Protocol PRN Reason: HYPOGLYCEMIA Last Infusion: 06/09/19 07:44 Dose: Infused Documented by: Potassium Chloride/Dextrose/Sod Cl (Kcl 20meq In D5.45ns 1000ml) 1,000 mls @ 75 mls/hr IV .[id number] [facility] Last Admin: 06/11/19 23:18 Dose: 75 mls/hr Documented by: Piperacillin Sod/Tazobactam (Sod 3.375 gm/ Sodium Chloride) 50 mls @ 12.5 mls/hr IV Q8 [facility] Last Admin: 06/12/19 05:19 Dose: 12.5 mls/hr Documented by: Pantoprazole Sodium 40 mg/ (Sodium Chloride) 110 mls @ 330 mls/hr IV Q12 [facility] Last Infusion: 06/12/19 04:41 Dose: Infused Documented by: Lorazepam (Ativan) 0.5 mg IV Q6H PRN PRN PRN Reason: ANXIETY Last Admin: 06/09/19 22:30 Dose: 0.5 mg Documented by: Melatonin (Melatonin) 10 mg PO QHS [facility] Last Admin: 06/11/19 23:06 Dose: 10 mg Documented by: Nitroglycerin (Nitrostat) 0.4 mg SUBLINGUAL Q5M PRN PRN Reason: CARDIAC/CHEST PAIN Nutritional Formula (Lactose Free) (Ensure Enlive) 120 ml PO 4X/DAY [facility] Last Admin: 06/11/19 21:26 Dose: 120 ml Documented by: Ondansetron HCl (Zofran) 4 mg IV Q8H PRN PRN PRN Reason: NAUSEA/VOMITING Prochlorperazine Edisylate (Compazine Iv) 5 mg IV Q4H PRN PRN PRN Reason: Breakthrough Nausea/Vomiting Sodium Chloride () 10 - 40 ml IV UD PRN PRN Reason: SALINE FLUSH Last Admin: 06/11/19 09:27 Dose: 10 ml Documented by: Throat Lozenges (Cepacol Sore Throat Lozenge) 1 lozenge MUCOUS MEM Q2H PRN PRN PRN Reason: SORE THROAT Medical Necessity - Tobacco Use Smoking Status: Never smoker Tobacco Use: Non-smoker Assessment/Plan All Active Problems Thrombocytosis (Acute) Severe sepsis (Acute) Hypoxia (Acute) Acute renal failure (ARF) (Acute) Community acquired pneumonia (Acute) Bronchospasm, acute (Acute) Bilateral pneumonia (Acute) Diarrhea (Acute) Acute respiratory failure with hypoxia (Acute) 1. Diarrhea, C. diff and stool for enteric pathogen negative Will give Imodium x 1 2. Acute sigmoid diverticulitis, improving, continue on Zosyn 3. Septic shock secondary to pneumonia, resolved Blood and sputum cultures, respiratory panel negative Continue on IV Zosyn 4. Acute hypoxic respiratory failure secondary to pneumonia, resolved, Patient is not on oxygen 5. Acute kidney injury secondary to ATN/dehydration, resolved Will trend labs 6. Hypokalemia/hyponatremia/hypomagnesemia, resolved. 7. Myeloproliferative disorder with chronic thrombocytosis, on Hydrea 8. Hypertension, controlled, BP meds on hold for now Will continue to monitor 9. DVT PPx- Heparin SC Code Visit Inpatient E&M: 63647 Subs Hosp L2
--- NOTE | 2019-06-12 07:54 | PN_ITS ---
Patient Problems: Active and Suspected Problems Thrombocytosis (Acute) Severe sepsis (Acute) Hypoxia (Acute) Acute renal failure (ARF) (Acute) Community acquired pneumonia (Acute) Bronchospasm, acute (Acute) Bilateral pneumonia (Acute) Diarrhea (Acute) Acute respiratory failure with hypoxia (Acute) GI bleed (Acute) Reason for Visit: Follow-up on septic shock/pneumonia/acute diverticulitis Subjective: Patient was seen and examined. Patient complained of blood after bowel movement. Had some mild left-sided abdominal discomfort. Denied any fever or chills. Objective: Physical exam: General: Alert, Oriented x3, Cooperative, No apparent distress HEENT: Atraumatic, PERRLA, EOMI, Normocephalic Oral: Moist Mucosa Neck: Supple Lungs: Clear to auscultation, Normal air movement Cardiovascular: Regular rate, Regular Rhythm, Normal S1, Normal S2, No murmurs Abdomen: Bowel Sounds Present, Soft, Non-Distended, No Hepato-splenomegaly, Tender - slight left lower quadrant tenderness Extremities: No edema Skin: No rashes, No breakdown Musculoskeletal: No Tenderness to Palpation of Joints or Extremities Lymphatic: No Cervical, Supraclavicular, or Inguinal Adenopathy Neurological: Cranial nerves II-XII grossly intact Psych/Mental Status: Normal Affect, Appropriate Vitals/I&O's: Vital Signs Temp Pulse Resp BP Pulse Ox 98.4 F 90 18 132/87 H 94 06/12/19 03:30 06/12/19 03:30 06/12/19 03:30 06/12/19 03:30 06/12/19 03:30 Oxygen Flow Rate (L/min) 2 Oxygen Delivery Method Room Air Weight: 85.3 kg Body Mass Index (BMI) 27.1 Intake and Output for Last 24 Hours 06/10/19 06/11/19 06/12/19 23:59 23:59 23:59 Intake Total 3318.75 / 3318.75 2787.5 / 2787.5 215.00 / 215.00 Balance 3318.75 / 3318.75 2787.5 / 2787.5 215.00 / 215.00 Microbiology Past 72 Hours 06/06/19 14:00 Blood Culture (Wb) - Anticubital Left Blood Culture - Final No growth in 5 days. 06/06/19 14:05 Blood Culture (Wb) - Anticubital Right Blood Culture - Final No growth in 5 days. 06/06/19 17:51 Urine, Clean Catch Urine Culture - Final Mixed Gram Positive Organisms Laboratory Results 06/09/19 06:41: Diff Path Review Reviewed 06/12/19 04:54: Hgb 7.9 L, Hct 22.3 L Current Medications Acetaminophen (Tylenol) 650 mg PO Q6H PRN PRN PRN Reason: Pain Score 1-10/Temp > 100.7 F Al Hydroxide/Mg Hydroxide (Mylanta Ii) 30 ml PO Q6H PRN PRN PRN Reason: Gastric Burning Albuterol Sulfate (Ventolin Aerosols) 2.5 mg INHALATION Q2H PRN PRN PRN Reason: SOB/Wheezing Glucagon () 1 mg IM .X1 PRN PRN Reason: Hypoglycemia Guaifenesin (Robitussin) 10 ml PO Q4H PRN PRN PRN Reason: COUGH Hydralazine HCl (Apresoline Iv) 10 mg IV Q4H PRN PRN PRN Reason: SBP > 160 Hydroxyurea (Hydrea) 1,500 mg PO DAILY [facility] Last Admin: 06/11/19 09:55 Dose: 1,500 mg Documented by: Sodium Chloride () 250 mls @ 15 mls/hr IV .[id number] PRN PRN Reason: Saline Flush Last Infusion: 06/12/19 05:22 Dose: 0 mls/hr Documented by: Sodium Chloride () 250 mls @ 15 mls/hr IV .[id number] PRN PRN Reason: Additional IVPB Infusion Dextrose (Dextrose 10%-Water) 250 mls @ 999 mls/hr IV .Q16M PRN; Protocol PRN Reason: HYPOGLYCEMIA Last Infusion: 06/09/19 07:44 Dose: Infused Documented by: Potassium Chloride/Dextrose/Sod Cl (Kcl 20meq In D5.45ns 1000ml) 1,000 mls @ 75 mls/hr IV .[id number] [facility] Last Admin: 06/11/19 23:18 Dose: 75 mls/hr Documented by: Piperacillin Sod/Tazobactam (Sod 3.375 gm/ Sodium Chloride) 50 mls @ 12.5 mls/hr IV Q8 [facility] Last Admin: 06/12/19 05:19 Dose: 12.5 mls/hr Documented by: Pantoprazole Sodium 40 mg/ (Sodium Chloride) 110 mls @ 330 mls/hr IV Q12 [facility] Last Infusion: 06/12/19 04:41 Dose: Infused Documented by: Lorazepam (Ativan) 0.5 mg IV Q6H PRN PRN PRN Reason: ANXIETY Last Admin: 06/09/19 22:30 Dose: 0.5 mg Documented by: Melatonin (Melatonin) 10 mg PO QHS [facility] Last Admin: 06/11/19 23:06 Dose: 10 mg Documented by: Nitroglycerin (Nitrostat) 0.4 mg SUBLINGUAL Q5M PRN PRN Reason: CARDIAC/CHEST PAIN Nutritional Formula (Lactose Free) (Ensure Enlive) 120 ml PO 4X/DAY [facility] Last Admin: 06/11/19 21:26 Dose: 120 ml Documented by: Ondansetron HCl (Zofran) 4 mg IV Q8H PRN PRN PRN Reason: NAUSEA/VOMITING Prochlorperazine Edisylate (Compazine Iv) 5 mg IV Q4H PRN PRN PRN Reason: Breakthrough Nausea/Vomiting Sodium Chloride () 10 - 40 ml IV UD PRN PRN Reason: SALINE FLUSH Last Admin: 06/11/19 09:27 Dose: 10 ml Documented by: Throat Lozenges (Cepacol Sore Throat Lozenge) 1 lozenge MUCOUS MEM Q2H PRN PRN PRN Reason: SORE THROAT Medical Necessity - Tobacco Use Smoking Status: Never smoker Tobacco Use: Non-smoker Assessment/Plan All Active Problems Thrombocytosis (Acute) Severe sepsis (Acute) Hypoxia (Acute) Acute renal failure (ARF) (Acute) Community acquired pneumonia (Acute) Bronchospasm, acute (Acute) Bilateral pneumonia (Acute) Diarrhea (Acute) Acute respiratory failure with hypoxia (Acute) GI bleed (Acute) 1. Acute GI bleed, unclear etiology, patient currently being treated for acute sigmoid diverticulitis Stool for C. diff and stool for enteric pathogen negative No acute drop in his H&H. Will consult general surgery, started on IV PPI 2. Acute sigmoid diverticulitis, will discontinue IV Zosyn after 7 days ( last dose is 06/13/19 at 2 pm) 3. Septic shock secondary to pneumonia, resolved Blood and sputum cultures, respiratory panel negative On IV Zosyn 4. Acute hypoxic respiratory failure secondary to pneumonia, resolved, Patient is not on oxygen 5. Acute kidney injury secondary to ATN/dehydration from diarrhea, resolved Will trend labs 6. Hypokalemia/hyponatremia/hypomagnesemia, resolved. 7. Myeloproliferative disorder with chronic thrombocytosis, on Hydrea 8. Hypertension, controlled, BP meds on hold for now Will continue to monitor 9. DVT PPx-off heparin on account of GI bleed, SCDs Code Visit Inpatient E&M: 53446 Subs Hosp L2
[2019-06-12 08:15] LABS: Albumin, Serum 1.7 g/dL (3.2-5.0); BUN 14 mg/dL (7-18); BUN/Creat Ratio 12.3 RATIO (10-20); Calcium,Total 7.6 mg/dL (8.5-10.1); Chloride 115 mmol/L (98-107); Creatinine, Serum 1.14 mg/dL (0.70-1.30); EST Glomerular Filtration Rate 70 mL/min (>60); Est Glom Filt Rate - Afr Amer 85 mL/min (>60); Glucose 96 mg/dL (74-106); Iron 50 ug/dL (65-175); Iron Binding Capacity,Total 123 ug/dL (250-450); PERCENT IRON SATURATION 40.7 % (15.0-55.0); Phosphorus 2.6 mg/dL (2.5-4.9); Potassium 4.4 mmol/L (3.5-5.1); Sodium Level 142 mmol/L (136-145)
[2019-06-12 10:24] LABS: Pathologist Review Reviewed
[2019-06-12] MEDS: Hydroxyurea 500 MG Capsule 1500 MG PO (10:49)
--- NOTE | 2019-06-12 12:50 | CON.PCM_ITS ---
Problem List (1) GI bleed Status: Acute Reason for Consult Date of Consultation: 06/12/19 Reason for Consultation: GI bleed History of Present Illness: The patient is a 58 year old M presented on 06/06/19 with weakness, sepsis, di arrhea and pneumonia. Patient has also been having diarrhea for 13 days. He has had stool cultures which were negative. He had a heme occult blood test on 06/06/19 which was negative. Patient stated on Monday he noted blood within his diaper from urine. Overnight last night he had noted small amount of blood on the toilet paper. He stated he has not been having any blood previously. Patient notes he has intermittent sharp left lower quadrant pain. Patient has been having this pain for [address] of ab/pel was ordered on MondayJune 08 which demonstrated sigmoid diverticulitis without abscess/perforation. Patient denies pain with food. He does note pain will intermittently come and go. He denies previous hospitalization or treatment of diverticulitis with antibiotics. Patient states his last colonoscopy was couple years ago. He notes a history of leukemia. he is currently on Hydrea for this. Patient notes his last colonoscopy was a couple of years ago in [place]. Patient denies polyps or masses at that time. Patient does note a history of upper GI bleed in 2012. Patient states he had an upper scope at that time and he had an artery that was bleeding and needed to be injected with epinephrine which ceased the bleeding. Patient is not currently on a PPI. Patient denies dark tarry stools, hematemesis. Patient is anxious hat something more serious is going on. Patient is very active at home. Patient was started on PPI this morning. Past Medical History Past Medical History (Chronic Problems): Chronic Problems Polycythemia vera (Chronic) Benign essential hypertension (Chronic) Allergies No Known Allergies Allergy (Verified 06/06/19 13:55) Home Medications: Ambulatory Orders Medication Instructions Recorded Hydroxyurea [Hydrea] 1,500 mg PO DAILY 05/11/13 Amlodipine [Norvasc] 10 mg PO DAILY 06/06/19 Benzonatate 200 mg PO TID PRN PRN 06/06/19 Doxycycline Hyclate 100 mg PO BID 06/06/19 Fluticasone/Umeclidin/Vilanter 1 ea IH DAILY 06/06/19 [Trelegy Ellipta 100-62.5-25] Lisinopril/Hydrochlorothiazide 1 tab PO DAILY 06/06/19 [Lisinopril-Hctz 20-12.5 mg Tab] Surgical History: - - Neck surgery, tonsillectomy. Psychiatric History: No pertinent psych hx Lives: Alone Smoking Status: Never smoker Tobacco Use: Non-smoker Alcohol: None Drugs: None - *Family History Maternal History Items: - - Patient notes a maternal family history of dementia. Paternal History Items: Heart Disease, - - Patient notes a significant paternal family history of several strokes with a near bedbound status and complications related. Review of Systems Constitutional: Reports: Weight Change. Denies: Weakness, Fatigue HEENT: Denies: Head Aches, Sinus Congestion, Sinus Drainage Cardiovascular: Denies: Chest Pain, Palpitations Respiratory: Denies: Cough, Shortness of breath at rest, Sputum production Gastrointestinal: Reports: Abdominal Pain - LLQ intermittently, Diarrhea - slowing down, Hematochezia. Denies: Hematemesis, Nausea, Melena, Vomiting Genitourinary: Denies: Dysuria Musculoskeletal: Denies: Joint Pain, Joint Tenderness Skin: Denies: Rash, Wounds Neurological: Denies: Numbness, Tingling, Focal weakness Psychiatric: Reports: Anxiety Hematologic/ Lymphatic: Reports: Anemia, Easy Bruising, Easy Bleeding Patient Problems: Active and Suspected Problems Thrombocytosis (Acute) Severe sepsis (Acute) Hypoxia (Acute) Acute renal failure (ARF) (Acute) Community acquired pneumonia (Acute) Bronchospasm, acute (Acute) Bilateral pneumonia (Acute) Diarrhea (Acute) Acute respiratory failure with hypoxia (Acute) GI bleed (Acute) - Physical Exam Vitals/I&O's: Vital Signs Temp Pulse Resp BP Pulse Ox 98.2 F 86 20 H 117/79 96 06/12/19 08:31 06/12/19 08:31 06/12/19 08:31 06/12/19 08:31 06/12/19 09:28 Oxygen Flow Rate (L/min) 2 Oxygen Delivery Method Room Air Weight: 188 lb 0.869 oz Body Mass Index (BMI) 27.1 Intake and Output for Last 24 Hours 06/10/19 06/11/19 06/12/19 23:59 23:59 23:59 Intake Total 3318.75 / 3318.75 2787.5 / 2787.5 265.00 / 265.00 Balance 3318.75 / 3318.75 2787.5 / 2787.5 265.00 / 265.00 General: Alert, Oriented x3, Cooperative HEENT: Atraumatic, PERRLA, EOMI, Normocephalic Neck: Supple, No JVD, Negative Carotid Bruits Lungs: Clear to auscultation, Normal air movement Cardiovascular: Regular rate, No murmurs Abdomen: Bowel Sounds Present, Soft, Non-Distended, Tender - LLQ with deep palpation Extremities: No edema, Capillary Refill Less than 3 Seconds Skin: No rashes, No breakdown Musculoskeletal: No Tenderness to Palpation of Joints or Extremities Neurological: Neuro grossly intact Psych/Mental Status: Normal Affect, Appropriate Microbiology Past 72 Hours 06/06/19 14:00 Blood Culture (Wb) - Anticubital Left Blood Culture - Final No growth in 5 days. 06/06/19 14:05 Blood Culture (Wb) - Anticubital Right Blood Culture - Final No growth in 5 days. 06/06/19 17:51 Urine, Clean Catch Urine Culture - Final Mixed Gram Positive Organisms Laboratory Results 06/11/19 05:20: Diff Path Review Reviewed 06/12/19 04:54: Hgb 7.9 L, Hct 22.3 L 06/12/19 04:54: Sodium 142, Potassium 4.4, Chloride 115 H, Carbon Dioxide 25.0, BUN 14, Creatinine 1.14, Estim Creat Clear Calc 80.80, Est GFR (MDRD) Af Amer 85, Est GFR (MDRD) Non-Af 70, BUN/Creatinine Ratio 12.3, Glucose 96, Calcium 7.6 L, Phosphorus 2.6, Iron 50 L, TIBC 123 L, Iron Saturation 40.7, Albumin 1.7 L Current Medications Acetaminophen (Tylenol) 650 mg PO Q6H PRN PRN PRN Reason: Pain Score 1-10/Temp > 100.7 F Al Hydroxide/Mg Hydroxide (Mylanta Ii) 30 ml PO Q6H PRN PRN PRN Reason: Gastric Burning Albuterol Sulfate (Ventolin Aerosols) 2.5 mg INHALATION Q2H PRN PRN PRN Reason: SOB/Wheezing Glucagon () 1 mg IM .X1 PRN PRN Reason: Hypoglycemia Guaifenesin (Robitussin) 10 ml PO Q4H PRN PRN PRN Reason: COUGH Hydralazine HCl (Apresoline Iv) 10 mg IV Q4H PRN PRN PRN Reason: SBP > 160 Hydroxyurea (Hydrea) 1,500 mg PO DAILY [facility] Last Admin: 06/12/19 10:49 Dose: 1,500 mg Documented by: Sodium Chloride () 250 mls @ 15 mls/hr IV .[id number] PRN PRN Reason: Saline Flush Last Infusion: 06/12/19 09:20 Dose: 15 mls/hr Documented by: Sodium Chloride () 250 mls @ 15 mls/hr IV .[id number] PRN PRN Reason: Additional IVPB Infusion Dextrose (Dextrose 10%-Water) 250 mls @ 999 mls/hr IV .Q16M PRN; Protocol PRN Reason: HYPOGLYCEMIA Last Infusion: 06/09/19 07:44 Dose: Infused Documented by: Potassium Chloride/Dextrose/Sod Cl (Kcl 20meq In D5.45ns 1000ml) 1,000 mls @ 75 mls/hr IV .[id number] [facility] Last Admin: 06/11/19 23:18 Dose: 75 mls/hr Documented by: Piperacillin Sod/Tazobactam (Sod 3.375 gm/ Sodium Chloride) 50 mls @ 12.5 mls/hr IV Q8 [facility] Last Infusion: 06/12/19 09:20 Dose: Infused Documented by: Pantoprazole Sodium 40 mg/ (Sodium Chloride) 110 mls @ 330 mls/hr IV Q12 [facility] Last Infusion: 06/12/19 04:41 Dose: Infused Documented by: Lorazepam (Ativan) 0.5 mg IV Q6H PRN PRN PRN Reason: ANXIETY Last Admin: 06/09/19 22:30 Dose: 0.5 mg Documented by: Melatonin (Melatonin) 10 mg PO QHS [facility] Last Admin: 06/11/19 23:06 Dose: 10 mg Documented by: Nitroglycerin (Nitrostat) 0.4 mg SUBLINGUAL Q5M PRN PRN Reason: CARDIAC/CHEST PAIN Nutritional Formula (Lactose Free) (Ensure Enlive) 120 ml PO 4X/DAY [facility] Last Admin: 06/12/19 10:49 Dose: 120 ml Documented by: Ondansetron HCl (Zofran) 4 mg IV Q8H PRN PRN PRN Reason: NAUSEA/VOMITING Prochlorperazine Edisylate (Compazine Iv) 5 mg IV Q4H PRN PRN PRN Reason: Breakthrough Nausea/Vomiting Sodium Chloride () 10 - 40 ml IV UD PRN PRN Reason: SALINE FLUSH Last Admin: 06/11/19 09:27 Dose: 10 ml Documented by: Throat Lozenges (Cepacol Sore Throat Lozenge) 1 lozenge MUCOUS MEM Q2H PRN PRN PRN Reason: SORE THROAT Assessment/Plan All Active Problems Thrombocytosis (Acute) Severe sepsis (Acute) Hypoxia (Acute) Acute renal failure (ARF) (Acute) Community acquired pneumonia (Acute) Bronchospasm, acute (Acute) Bilateral pneumonia (Acute) Diarrhea (Acute) Acute respiratory failure with hypoxia (Acute) GI bleed (Acute) I have been consulted in conjunction with Dr. Crawford. He will independently evaluate this patient. Acute anemia. Etiology anticoagulation versus sigmoid diverticulitis versus hemorrhoids Plan: Discussed patient with Dr. Crawford. At this time, patient is actively being treated for sigmoid diverticulitis. Colonoscopy is being recommended at this time. Continue to monitor bleeding with bowel movements. Observe hemoglobin. Would consider an outpatient colonoscopy once sigmoid diverticulitis resolved approx. 4-6 weeks. Patient has had the opportunity to ask and have questions answered. Patient verbally understand and agrees with the plan. Patient prefers no intervention at this time if possible. Patient voices numerous times he would like to go home. Patient very anxious. Spent 45 minutes with the patient discussing his care. Patient appreciates the time I spent with him. Thank you for allowing us to participate in this patient's care. Code Visit Office Visits / Consults: [id number] IP Consult L3
--- NOTE | 2019-06-12 12:58 | NURSING ---
Student documentation reviewed.
[2019-06-12 13:17] LABS: Hematocrit 23.7 % (40-54); Hemoglobin 8.4 g/dL (13.0-16.5)
--- NOTE | 2019-06-12 16:12 | NURSING ---
Pt reports having BM with no blood at this time- pt very happy and excited. Hoping to be d/c'ed tomorrow.
[2019-06-12] MEDS: MELATONIN 10 MG TABLET PO (21:40)
[2019-06-13 03:32] VITALS: BP 118/89; PULSE 88; RESP 16; TEMP 36.7; O2SAT 95
--- NOTE | 2019-06-13 05:51 | PCM.PN.SRG ---
Patient Problems: Active and Suspected Problems Thrombocytosis (Acute) Severe sepsis (Acute) Hypoxia (Acute) Acute renal failure (ARF) (Acute) Community acquired pneumonia (Acute) Bronchospasm, acute (Acute) Bilateral pneumonia (Acute) Diarrhea (Acute) Acute respiratory failure with hypoxia (Acute) GI bleed (Acute) Subjective: Pt states he is comfortable, no further rectal bleeding since prior to my visit last night. - Physical Exam Vitals/I&O's: Vital Signs Temp Pulse Resp BP Pulse Ox 98.1 F 88 16 118/89 H 95 06/13/19 03:32 06/13/19 03:32 06/13/19 03:32 06/13/19 03:32 06/13/19 03:32 Oxygen Flow Rate (L/min) 2 Oxygen Delivery Method Room Air Weight: 208 lb 1.862 oz Body Mass Index (BMI) 27.1 Intake and Output for Last 24 Hours 06/11/19 06/12/19 06/13/19 23:59 23:59 23:59 Intake Total 2787.5 / 2787.5 1497.75 / 1697.75 1574.75 / 1574.75 Balance 2787.5 / 2787.5 1497.75 / 1697.75 1574.75 / 1574.75 Microbiology Past 72 Hours 06/06/19 14:00 Blood Culture (Wb) - Anticubital Left Blood Culture - Final No growth in 5 days. 06/06/19 14:05 Blood Culture (Wb) - Anticubital Right Blood Culture - Final No growth in 5 days. Laboratory Results 06/11/19 05:20: Diff Path Review Reviewed 06/12/19 04:54: Sodium 142, Potassium 4.4, Chloride 115 H, Carbon Dioxide 25.0, BUN 14, Creatinine 1.14, Estim Creat Clear Calc 80.80, Est GFR (MDRD) Af Amer 85, Est GFR (MDRD) Non-Af 70, BUN/Creatinine Ratio 12.3, Glucose 96, Calcium 7.6 L, Phosphorus 2.6, Iron 50 L, TIBC 123 L, Iron Saturation 40.7, Albumin 1.7 L 06/12/19 13:08: Hgb 8.4 L, Hct 23.7 L Current Medications Acetaminophen (Tylenol) 650 mg PO Q6H PRN PRN PRN Reason: Pain Score 1-10/Temp > 100.7 F Al Hydroxide/Mg Hydroxide (Mylanta Ii) 30 ml PO Q6H PRN PRN PRN Reason: Gastric Burning Albuterol Sulfate (Ventolin Aerosols) 2.5 mg INHALATION Q2H PRN PRN PRN Reason: SOB/Wheezing Glucagon () 1 mg IM .X1 PRN PRN Reason: Hypoglycemia Guaifenesin (Robitussin) 10 ml PO Q4H PRN PRN PRN Reason: COUGH Hydralazine HCl (Apresoline Iv) 10 mg IV Q4H PRN PRN PRN Reason: SBP > 160 Hydroxyurea (Hydrea) 1,500 mg PO DAILY [facility] Last Admin: 06/12/19 10:49 Dose: 1,500 mg Documented by: Sodium Chloride () 250 mls @ 15 mls/hr IV .[id number] PRN PRN Reason: Saline Flush Last Infusion: 06/13/19 05:42 Dose: 0 mls/hr Documented by: Sodium Chloride () 250 mls @ 15 mls/hr IV .[id number] PRN PRN Reason: Additional IVPB Infusion Dextrose (Dextrose 10%-Water) 250 mls @ 999 mls/hr IV .Q16M PRN; Protocol PRN Reason: HYPOGLYCEMIA Last Infusion: 06/09/19 07:44 Dose: Infused Documented by: Potassium Chloride/Dextrose/Sod Cl (Kcl 20meq In D5.45ns 1000ml) 1,000 mls @ 75 mls/hr IV .[id number] [facility] Last Admin: 06/13/19 03:33 Dose: 75 mls/hr Documented by: Piperacillin Sod/Tazobactam (Sod 3.375 gm/ Sodium Chloride) 50 mls @ 12.5 mls/hr IV Q8 [facility] Stop: 06/13/19 14:01 Last Admin: 06/13/19 05:41 Dose: 12.5 mls/hr Documented by: Pantoprazole Sodium 40 mg/ (Sodium Chloride) 110 mls @ 330 mls/hr IV Q12 [facility] Last Infusion: 06/12/19 21:55 Dose: Infused Documented by: Lorazepam (Ativan) 0.5 mg IV Q6H PRN PRN PRN Reason: ANXIETY Last Admin: 06/09/19 22:30 Dose: 0.5 mg Documented by: Melatonin (Melatonin) 10 mg PO QHS [facility] Last Admin: 06/12/19 21:40 Dose: 10 mg Documented by: Nitroglycerin (Nitrostat) 0.4 mg SUBLINGUAL Q5M PRN PRN Reason: CARDIAC/CHEST PAIN Nutritional Formula (Lactose Free) (Ensure Enlive) 120 ml PO 4X/DAY [facility] Last Admin: 06/12/19 21:40 Dose: Not Given Documented by: Ondansetron HCl (Zofran) 4 mg IV Q8H PRN PRN PRN Reason: NAUSEA/VOMITING Prochlorperazine Edisylate (Compazine Iv) 5 mg IV Q4H PRN PRN PRN Reason: Breakthrough Nausea/Vomiting Sodium Chloride () 10 - 40 ml IV UD PRN PRN Reason: SALINE FLUSH Last Admin: 06/11/19 09:27 Dose: 10 ml Documented by: Throat Lozenges (Cepacol Sore Throat Lozenge) 1 lozenge MUCOUS MEM Q2H PRN PRN PRN Reason: SORE THROAT Medical Necessity - Tobacco Use Smoking Status: Never smoker Tobacco Use: Non-smoker Assessment/Plan All Active Problems Thrombocytosis (Acute) Severe sepsis (Acute) Hypoxia (Acute) Acute renal failure (ARF) (Acute) Community acquired pneumonia (Acute) Bronchospasm, acute (Acute) Bilateral pneumonia (Acute) Diarrhea (Acute) Acute respiratory failure with hypoxia (Acute) GI bleed (Acute) I wonder whether the anticoagulation that was being administered added to the bleeding At this point, recommend mobilization and conservative management Will request office follow up in approximately one week Can consider future colonoscopy once diverticulitis resolved and pt otherwise improved
[2019-06-13 06:18] LABS: Absolute Lymphocyte Count 0.57 X10^3/uL (0.83-4.51); Absolute Neutrophil Count 2.5 X10^3/uL (2.0-7.7); Basophil# 0.01 X10^3/uL; Basophil% 0.3 % (0-1); Eosinophil# 0.04 X10^3/uL; Eosinophils% 1.2 % (0-5); Hematocrit 22.6 % (40-54); Lymphocyte # 0.57 X10^3/ul (4.0); Lymphocyte % 17.2 % (19-41); Mean Corp Hgb Conc 35.4 g/dL (32-36); Mean Corpuscular Hgb 43.7 pg (27.0-32.0); Mean Corpuscular Volume 123.5 fL (80-94); Mean Platelet Vol. 8.8 fl (6.2-12.0); NRBC Flagged by Analyzer 0 % (0-5); Neutrophil # 2.47 X10^3/uL (2.7-7.7); Neutrophil % 74.7 % (47-70); POSITIVE DIFFERENTIAL YES; Platelet Count 497 K/mm3 (150-450); RBC Distribution Width CV 12.2 % (11.6-14.6); RBC Distribution Width SD 54.5 fl (35.1-43.9); Red Blood Count 1.83 M/mm3 (4.6-6.2); White Blood Count 3.3 K/mm3 (4.4-11.0)
[2019-06-13 06:25] LABS: Differential Indicated SCAN CRITERIA MET
[2019-06-13 06:37] LABS: Anion Gap 5 (5-15); BUN 12 mg/dL (7-18); BUN/Creat Ratio 10.7 RATIO (10-20); Calcium,Total 7.6 mg/dL (8.5-10.1); Chloride 113 mmol/L (98-107); Creatinine, Serum 1.12 mg/dL (0.70-1.30); EST Glomerular Filtration Rate 72 mL/min (>60); Est Glom Filt Rate - Afr Amer 87 mL/min (>60); Estimated Creatinine Clearance 82.24 ml/min; Glucose 93 mg/dL (74-106); Potassium 4.2 mmol/L (3.5-5.1); Sodium Level 141 mmol/L (136-145)
[2019-06-13 06:59] LABS: Platelet Estimate SLT INC (ADEQ)
[2019-06-13 07:03] LABS: Macrocytosis 3+
[2019-06-13 07:36] VITALS: O2SAT 96
--- NOTE | 2019-06-13 09:06 | PCM.DC ---
- Discharge Diagnoses Current Active Problems: Current Active and Chronic Problems Thrombocytosis (Acute) Severe sepsis (Acute) Hypoxia (Acute) Acute renal failure (ARF) (Acute) Community acquired pneumonia (Acute) Bronchospasm, acute (Acute) Bilateral pneumonia (Acute) Diarrhea (Acute) Acute respiratory failure with hypoxia (Acute) GI bleed (Acute) Reason(s) for Visit for Discharge Instructions: Septic shock, pneumonia, acute diverticulitis You will use the following diet at home:: Cardiac Your food should be the consistency of: Regular Your liquids should be the consistency of: Regular/Thin Discharge Activity: Return to Normal Activity Weight Bearing Status: Weight bearing as tolerated Instructions: Understanding Diverticulosis and Diverticulitis, What Is Pneumonia?, Treating Pneumonia Additional Instructions: Continue to use your incentive spirometer. Continue to keep ypurself hydrated. Monitor your BP daily. May resume BP meds. You need repeat blood work in 1 week to check on your kidneys. Monitor for further rectal bleeding. Allergies/Adverse Reactions: Allergies No Known Allergies Allergy (Verified 06/06/19 13:55) Medications to take at Discharge Hydroxyurea [Hydrea] 1,500 mg PO DAILY 05/11/13 Amlodipine [Norvasc] 10 mg PO DAILY 06/06/19 Benzonatate 200 mg PO TID PRN PRN 06/06/19 Fluticasone/Umeclidin/Vilanter [Trelegy Ellipta 100-62.5-25] 1 ea IH DAILY 06/06/19 Lisinopril/Hydrochlorothiazide [Lisinopril-Hctz 20-12.5 mg Tab] 1 tab PO DAILY 06/06/19 Acetaminophen [Tylenol Tablet] 650 mg PO Q6H PRN PRN tablet 06/13/19 Ensure Enlive 120 ml PO 4X/DAY 30 Days #120 liquid 06/13/19 The following prescriptions were given: Ensure Enlive 120 ml PO 4X/DAY 30 Days #120 liquid Transmission Status: Pending to [id number] Primary Care Physician: PRINCE JOINER [Other] Please follow up with your Primary Care Physician in: within 2 weeks Test Results: Test results from this visit will be discussed in further detail at your follow-up appointment, if applicable. Please Follow Up With: David Crawford MD When: in 1 week Proposed Discharge Date: 06/13/19
--- NOTE | 2019-06-13 09:23 | PCM.DC.SUM ---
Discharge Date and Diagnosis Date of Admission: 06/06/19 Date of Discharge: 06/13/19 - Primary Discharge Diagnosis Active and Suspected Problems Acute GI bleed Acute sigmoid diverticulitis Septic shock Acute hypoxic respiratory failure Acute kidney injury Hypokalemia Hyponatremia Hypomagnesemia Pneumonia - Secondary Discharge Diagnosis Chronic Problems Polycythemia vera (Chronic) Myeloproliferative disorder Benign essential hypertension (Chronic) Hospital Course and Treatment Imaging Results: Clinical Impression(s) from Imaging Studies Chest X-Ray 06/06/19 14:20 IMPRESSION: Patchy alveolar infiltrate suspicious for early pneumonic infiltrates are seen in the left hilar region and both lung bases. Electronically Signed: Volodymyr Collins at 15:35 EST Tel , Service support , Renal Ultrasound 06/06/19 19:47 IMPRESSION: Normal ultrasound of the kidneys and urinary bladder. Electronically Signed: Abdifatah Moreira MD at 21:17 EST , Service support , Chest X-Ray 06/07/19 05:55 IMPRESSION: Minimal change in bilateral infiltrates. at 0557 Reported and signed by: Nini Irwin MD Electronically Signed: Nini Irwin MD at 5:57 EST Tel , Service support , Chest X-Ray 06/07/19 09:35 IMPRESSION: 1. Interval placement of right internal jugular deep venous line with tip of the catheter overlying the superior vena cava and no pneumothorax. 2. No active disease. Electronically Signed: Leandro Ramirez MD at 11:10 EST Tel , Service support , Abdomen CT 06/09/19 22:44 IMPRESSION: Sigmoid diverticulitis with no signs of perforation or abscess. Bilateral patchy infiltrates through the lower lobes. Splenomegaly. Diffuse fatty liver. Contracted gallbladder with no biliary distention. Nonobstructive intrarenal stones. Moderate hiatal hernia. Electronically Signed: Abbie Rangel MD at 2:24 EST , Service support , General surgery Operations: None Procedures: None Summary of Care Provided: The patient is a 58 year old M with past medical history of myeloproliferative disorder, with chronic thrombosis, on Hydrea, Hypertension who comes in with complaints of cough, fatigue, dyspnea ongoing for 5 days as well as diarrhea. Patient was found to be saturating 86% on room air with improvement to 91% on 2 L of oxygen. His white cell count was 8.2, chest x-ray was suspicious for pneumonia. His admitting lactic acid was 3. Patient was initially admitted as severe sepsis secondary to pneumonia and started on IV fluids. Despite receiving more than 3 L of IV fluids, patient remained hypotensive and was started on Levophed. He also was admitted with acute kidney injury which was likely to be prerenal in etiology and related to possible ischemic ATN. Renal ultrasound was unremarkable. Nephrology was consulted. Stool for C. difficile and enteric panel were negative. Patient was managed on broad-spectrum antibiotics. His electrolytes were replaced. CT scan of the abdomen and pelvis showed acute sigmoid diverticulitis without signs of perforation or abscess. He continued to improve and was transferred out of the ICU. On 06/09/19, rapid response was called for patient was found to be shivering in bed, tachycardic and tachypneic. His blood sugar was 80. EKG showed sinus tachycardia. Patient received 25 mg of Ativan and his blood glucose was replenished. He was transferred back to the ICU and later on transferred out of ICU For the cause of his hospital stay, he had episodes of hematuria as well as GI bleed. This was felt to be related to his anticoagulant therapy. Heparin was discontinued. Patient was started on IV PPI. General surgery were consulted. Conservative management was proposed and patient was continued on IV Zosyn. Patient will follow-up in the outpatient with general surgery. Patient got discharged before he could see if his last dose of IV Zosyn to make 1 week of therapy. Augmentin 875 mg p.o. twice a day for 1 day was e-scribed to his pharmacy. Several attempts to reach patient to inform him of the antibiotics sent to his pharmacy failed. All phone calls made to the numbers listed in [facility] [employer] went to voicemail. Subjective: On the day of discharge, patient was seen and examined. He denied any new complains. Denied chest pain, dizziness, palpitations. Objective: Physical exam: General: Alert, Oriented x3, Cooperative, No apparent distress HEENT: Atraumatic, PERRLA, EOMI, Normocephalic Oral: Moist Mucosa Neck: Supple Lungs: Clear to auscultation, Normal air movement Cardiovascular: Regular rate, Regular Rhythm, Normal S1, Normal S2, No murmurs Abdomen: Bowel Sounds Present, Soft, Non-Distended, No Hepato-splenomegaly, Tender - slight left lower quadrant tenderness Extremities: No edema Skin: No rashes, No breakdown Musculoskeletal: No Tenderness to Palpation of Joints or Extremities Lymphatic: No Cervical, Supraclavicular, or Inguinal Adenopathy Neurological: Cranial nerves II-XII grossly intact Psych/Mental Status: Normal Affect, Appropriate - Physical Exam Vitals/I&O's: Vital Signs Temp Pulse Resp BP Pulse Ox 98.1 F 88 16 118/89 H 95 06/13/19 03:32 06/13/19 03:32 06/13/19 03:32 06/13/19 03:32 06/13/19 03:32 Oxygen Flow Rate (L/min) 2 Oxygen Delivery Method Room Air Weight: 94.4 kg Body Mass Index (BMI) 27.1 Intake and Output for Last 24 Hours 06/11/19 06/12/19 06/13/19 23:59 23:59 23:59 Intake Total 2787.5 / 2787.5 1497.75 / 1697.75 1574.75 / 1574.75 Balance 2787.5 / 2787.5 1497.75 / 1697.75 1574.75 / 1574.75 Microbiology Past 72 Hours 06/06/19 14:00 Blood Culture (Wb) - Anticubital Left Blood Culture - Final No growth in 5 days. 06/06/19 14:05 Blood Culture (Wb) - Anticubital Right Blood Culture - Final No growth in 5 days. Laboratory Results 06/11/19 05:20: Diff Path Review Reviewed 06/12/19 13:08: Hgb 8.4 L, Hct 23.7 L 06/13/19 05:35: WBC 3.3 L, RBC 1.83 L, Hgb 8.0 L, Hct 22.6 L, MCV 123.5 H, MCH 43.7 H, MCHC 35.4, RDW Std Deviation 54.5 H, RDW Coeff of Jimmy 12.2, Plt Count 497 H, MPV 8.8, Immature Gran % (Auto) 0.600, Neut % (Auto) 74.7 H, Lymph % (Auto) 17.2 L, [place] % (Auto) 6.0, Eos % (Auto) 1.2, Baso % (Auto) 0.3, Absolute Neuts (auto) 2.5, Absolute Lymphs (auto) 0.57 L, Nucleated RBC % 0, Differential Comment , Platelet Estimate SLT INC, Macrocytosis 3+ 06/13/19 05:35: Sodium 141, Potassium 4.2, Chloride 113 H, Carbon Dioxide 23.0, Anion Gap 5, BUN 12, Creatinine 1.12, Estim Creat Clear Calc 82.24, Est GFR (MDRD) Af Amer 87, Est GFR (MDRD) Non-Af 72, BUN/Creatinine Ratio 10.7, Glucose 93, Calcium 7.6 L Current Medications Acetaminophen (Tylenol) 650 mg PO Q6H PRN PRN PRN Reason: Pain Score 1-10/Temp > 100.7 F Al Hydroxide/Mg Hydroxide (Mylanta Ii) 30 ml PO Q6H PRN PRN PRN Reason: Gastric Burning Albuterol Sulfate (Ventolin Aerosols) 2.5 mg INHALATION Q2H PRN PRN PRN Reason: SOB/Wheezing Glucagon () 1 mg IM .X1 PRN PRN Reason: Hypoglycemia Guaifenesin (Robitussin) 10 ml PO Q4H PRN PRN PRN Reason: COUGH Hydralazine HCl (Apresoline Iv) 10 mg IV Q4H PRN PRN PRN Reason: SBP > 160 Hydroxyurea (Hydrea) 1,500 mg PO DAILY DEBBIE Last Admin: 06/12/19 10:49 Dose: 1,500 mg Documented by: Sodium Chloride () 250 mls @ 15 mls/hr IV .[id number] PRN PRN Reason: Saline Flush Last Infusion: 06/13/19 05:42 Dose: 0 mls/hr Documented by: Sodium Chloride () 250 mls @ 15 mls/hr IV .[id number] PRN PRN Reason: Additional IVPB Infusion Dextrose (Dextrose 10%-Water) 250 mls @ 999 mls/hr IV .Q16M PRN; Protocol PRN Reason: HYPOGLYCEMIA Last Infusion: 06/09/19 07:44 Dose: Infused Documented by: Potassium Chloride/Dextrose/Sod Cl (Kcl 20meq In D5.45ns 1000ml) 1,000 mls @ 75 mls/hr IV .[id number] [facility] Last Admin: 06/13/19 03:33 Dose: 75 mls/hr Documented by: Piperacillin Sod/Tazobactam (Sod 3.375 gm/ Sodium Chloride) 50 mls @ 12.5 mls/hr IV Q8 [facility] Stop: 06/13/19 14:01 Last Admin: 06/13/19 05:41 Dose: 12.5 mls/hr Documented by: Pantoprazole Sodium 40 mg/ (Sodium Chloride) 110 mls @ 330 mls/hr IV Q12 [facility] Last Infusion: 06/12/19 21:55 Dose: Infused Documented by: Lorazepam (Ativan) 0.5 mg IV Q6H PRN PRN PRN Reason: ANXIETY Last Admin: 06/09/19 22:30 Dose: 0.5 mg Documented by: Melatonin (Melatonin) 10 mg PO QHS [facility] Last Admin: 06/12/19 21:40 Dose: 10 mg Documented by: Nitroglycerin (Nitrostat) 0.4 mg SUBLINGUAL Q5M PRN PRN Reason: CARDIAC/CHEST PAIN Nutritional Formula (Lactose Free) (Ensure Enlive) 120 ml PO 4X/DAY [facility] Last Admin: 06/12/19 21:40 Dose: Not Given Documented by: Ondansetron HCl (Zofran) 4 mg IV Q8H PRN PRN PRN Reason: NAUSEA/VOMITING Prochlorperazine Edisylate (Compazine Iv) 5 mg IV Q4H PRN PRN PRN Reason: Breakthrough Nausea/Vomiting Sodium Chloride () 10 - 40 ml IV UD PRN PRN Reason: SALINE FLUSH Last Admin: 06/11/19 09:27 Dose: 10 ml Documented by: Throat Lozenges (Cepacol Sore Throat Lozenge) 1 lozenge MUCOUS MEM Q2H PRN PRN PRN Reason: SORE THROAT Discharge Diet: No Restrictions Discharge Activity: Return to Normal Activity Weight Bearing Status: Weight bearing as tolerated Home Medications: Medications to take at Discharge Hydroxyurea [Hydrea] 1,500 mg PO DAILY 05/11/13 Amlodipine [Norvasc] 10 mg PO DAILY 06/06/19 Benzonatate 200 mg PO TID PRN PRN 06/06/19 Fluticasone/Umeclidin/Vilanter [Trelegy Ellipta 100-62.5-25] 1 ea IH DAILY 06/06/19 Lisinopril/Hydrochlorothiazide [Lisinopril-Hctz 20-12.5 mg Tab] 1 tab PO DAILY 06/06/19 Acetaminophen [Tylenol Tablet] 650 mg PO Q6H PRN PRN tab 06/13/19 Amoxicillin/Potassium Clav [Augmentin 875-125 Tablet] 1 ea PO BID #2 tab 06/13/19 Ensure Enlive 120 ml PO 4X/DAY 30 Days #120 liquid 06/13/19 Following Prescrptions Were Given to Patient: Amoxicillin/Potassium Clav [Augmentin 875-125 Tablet] 1 ea PO BID #2 tab Transmission Status: Received by [id number] Ensure Enlive 120 ml PO 4X/DAY 30 Days #120 liquid Transmission Status: Received by [id number] Primary Care Physician: PRINCE JOINER [Other] Please follow up with your Primary Care Physician in: within 2 weeks Please Follow Up With: David Crawford MD When: in 1 week Patient Instructions: Understanding Diverticulosis and Diverticulitis, What Is Pneumonia?, Treating Pneumonia Disposition: Home Minutes spent on discharge:: 40 Patient Condition:: Stable Medical Necessity - Tobacco Use Smoking Status: Never smoker Tobacco Use: Non-smoker Meaningful Use Info Meaningful Use Diagnoses (Choose all that apply): None applicable Inpatient E&M: 389[address] [facility] Hosp L2
[2019-06-13 09:55] VITALS: BP 133/92; PULSE 90; RESP 16; TEMP 37.4; O2SAT 99
[2019-06-13 13:08] LABS: Pathologist Review Reviewed
== END 2019-06-13 10:27 | disposition home or self-care (01) | DRG 871 ==
LOC: ED 15:16 → ICU 18:47 → MS3 06-08 16:38 → ICU 06-09 07:50 → MS3 06-10 07:16 → ICU 06-10 12:50 → MS3 06-10 12:50
PROVIDERS: Hospitalist; Internal Medicine; Physician Assistant; Admitting Provider Family Medicine; Emergency Provider Emergency Medicine; Visit Provider Internal Medicine
DX: A41.9 Sepsis, unspecified organism (principal); J96.01 Acute respiratory failure with hypoxia; R65.21 Severe sepsis with septic shock; J18.9 Pneumonia, unspecified organism; N17.0 Acute kidney failure with tubular necrosis; E87.1 Hypo-osmolality and hyponatremia; C94.6 Myelodysplastic disease, not elsewhere classified; K92.2 Gastrointestinal hemorrhage, unspecified; J44.0 Chronic obstructive pulmonary disease with (acute) lower respiratory infection; K57.32 Diverticulitis of large intestine without perforation or abscess without bleeding; E87.6 Hypokalemia; I10 Essential (primary) hypertension; D45 Polycythemia vera; E83.42 Hypomagnesemia; R31.9 Hematuria, unspecified; T45.515A Adverse effect of anticoagulants, initial encounter
CPT/HCPCS: 36415; 71045; 71046; 74176; 76770; 80048; 80053; 80069; 80076; 80202; 81001; 82274; 82570; 82962; 83540; 83550; 83605; 83630; 83735; 84100; 84300; 85014; 85018; 85025; 85027; 85610; 85730; 87040; 87086; 87088; 87449; 87493; 87506; 87633; 87641; 93005; 97162; 97166; 99251; 99285; J7030; J7040; J7050; J7120; A4216; C1751; G0463

== ENCOUNTER 2021-11-13 06:05 | Emergency (ER) | payer MEDICAID, SELFPAY ==
[2021-11-13 06:06] VITALS: BP 137/97; PULSE 126; RESP 20; TEMP 36.8; O2SAT 98; BMI 25.0
--- NOTE | 2021-11-13 06:25 | CT_ITS ---
STUDY: CT ABDOMEN AND PELVIS WITH CONTRAST REASON FOR EXAM: Male, 61 years old. abd pain RADIATION DOSAGE (If Supplied By Facility): CTDIvol = ( 15.63 ) mGy, DLP = ( 1048.20 ) mGycm TECHNIQUE: Transaxial images were obtained from the dome of the diaphragm to the symphysis pubis without oral contrast. IV 75mL Isovue-370 was administered. Sagittal and coronal images were reconstructed. Individualized dose optimization techniques were used for this CT. COMPARISON: 06/09/2019 FINDINGS: The visualized lung bases are unremarkable. The visualized portions of the heart are within normal limits. Normal liver. Normal gallbladder and extrahepatic biliary system. Normal spleen. Normal pancreas. Normal bilateral adrenal glands. Multiple bilateral small nonobstructing renal stones. No hydronephrosis, ureteral stone, or ureteral dilatation. There is a small hiatal hernia. Small diverticulum of second portion the duodenum. There is a long segment of severe wall thickening of the sigmoid colon consistent with inflammation. Differential diagnosis includes infectious colitis, diverticulitis even though no diverticular seen, or colonic carcinoma, or less likely ischemia. There is a 4.5 cm fluid collection with an air-fluid level in the midline anterior to the inflamed bowel consistent with a phlegmon/developing abscess. Posterior in the midline is another 5.5 cm fluid collection with gas and enhancing wall consistent with an abscess. The appendix is visualized and appears normal. There is diffuse atherosclerotic calcification of the abdominal aorta, without a demonstrated aneurysm. Normal inferior vena cava. Normal retroperitoneum. Normal urinary bladder. Normal abdominal wall. Mild levoscoliosis lumbar spine with degenerative disc disease. CT/Abdomen/Pelvis W IV Cont ONLY IMPRESSION: Severe inflammation of the sigmoid colon with adjacent phlegmon and abscess. Differential diagnosis includes infectious colitis, diverticulitis, less likely ischemia, or colonic carcinoma. N.B. : The above Results were Read Back by Leandro Ramirez MD to David Xiao and understanding confirmed on 11/13/2021 08:44:52 (ET). Electronically Signed: Leandro Ramirez MD at 8:47 EDT ,
[2021-11-13] MEDS: Ondansetron 4 MG/2 ML Vial IV ×2 (06:35→11:00)
[2021-11-13] MEDS: 0.9% Normal Saline 1,000 ML 999 ML IV ×2 (06:36→08:13)
[2021-11-13 06:40] LABS: Absolute Lymphocyte Count 1.32 X10^3/uL (0.83-4.51); Absolute Neutrophil Count 10.6 X10^3/uL (2.0-7.7); Basophil# 0.04 X10^3/uL; Basophil% 0.3 % (0-1); Eosinophil# 0.01 X10^3/uL; Eosinophils% 0.1 % (0-5); Hematocrit 30.9 % (40-54); Hemoglobin 10.7 g/dL (13.0-16.5); Lymphocyte # 1.32 X10^3/ul (0.83-4.51); Lymphocyte % 10.2 % (19-41); Mean Corp Hgb Conc 34.6 g/dL (32-36); Mean Corpuscular Hgb 38.5 pg (27.0-32.0); Mean Corpuscular Volume 111.2 fL (80-94); Monocyte# 0.85 X10^3/uL; Monocyte% 6.6 % (0-10); NRBC Flagged by Analyzer 0 % (0-5); Neutrophil # 10.56 X10^3/uL (2.7-7.7); Neutrophil % 81.3 % (47-70); POSITIVE COUNT YES; RBC Distribution Width CV 16.2 % (11.6-14.6); RBC Distribution Width SD 63.5 fl (35.1-43.9); Red Blood Count 2.78 M/mm3 (4.6-6.2)
[2021-11-13 06:41] LABS: Differential Indicated SCAN CRITERIA MET
[2021-11-13 06:42] LABS: Platelet Count 1188 K/mm3 (150-450)
[2021-11-13] MEDS: Morphine 4 MG/ML Syringe IV ×2 (06:42→11:00)
[2021-11-13 06:56] LABS: Differential Comment SCANNED; Platelet Estimate MKD INC (ADEQ)
--- NOTE | 2021-11-13 07:08 | EDS_ITS ---
HPI History of Present Illness Chief Complaint: Abd Pain Narrative Narrative: Patient is a 61-year-old male with past medical history of polycythemia vera hypertension and previous acute kidney injury. He states for the past 3 to 4 days he has had generalized lower abdominal pain that worsens with any type of ingestion. He states he has been nauseous with bouts of vomiting as well. He denies any fevers or chills or known sick contact. He states he is concerned he is becoming dehydrated and could be also progressing to return of kidney damage and secondary to this he comes in for evaluation [facility] Medical History Acute renal failure (ARF) Acute respiratory failure with hypoxia Benign essential hypertension Bilateral pneumonia Bronchospasm, acute Community acquired pneumonia Diarrhea GI bleed Hypoxia Leukemia Polycythemia vera Severe sepsis Thrombocytosis Home Medications hydroxyurea 500 mg capsule 1,500 mg PO DAILY cancer 05/11/13 [History Last Taken 06/06/19] fluticasone fur. 100 mcg-umeclid 62.5 mcg-vilant 25 mcg inhalat.powder 1 ea IH DAILY sob 06/06/19 [History Last Taken 06/06/19] allopurinol 300 mg tablet 300 mg PO DAILY 11/13/21 [History Last Taken Unknown] chlorthalidone 25 mg tablet 25 mg PO DAILY 11/13/21 [History Last Taken Unknown] folic acid 800 mcg tablet 0.8 mg PO DAILY 11/13/21 [History Last Taken Unknown] mecobalamin (vitamin B12) 1,000 mcg chewable tablet (B12 Active) 1,000 mcg PO DAILY 11/13/21 [History Last Taken Unknown] Allergy/AdvReac Type Severity Reaction Status Date / Time No Known Allergies Allergy Verified 11/13/21 06:09 Social History (Updated 06/25/19 @ 16:03 by Suki ALAS, PA-C) Smoking Status: Never smoker ROS ROS ED Constitutional Constitutional ED: Denies chills or fever(s) ENT ENT ED: Denies sore throat Cardiovascular Cardiovascular: Reports racing heartbeat; Denies chest pain Respiratory/Chest Respiratory/Chest: Denies cough or dyspnea Gastrointestinal Gastrointestinal: Reports abdominal pain and nausea; Denies diarrhea or vomiting Genitourinary Genitourinary ED: Denies dysuria Musculoskeletal Musculoskeletal: Denies myalgias Integumentary Denies rash Neurologic Neurologic: Reports weakness; Denies headache(s) Hematologic/Lymphatic Hematologic/Lymphatic: Denies easy bleeding or easy bruising EXAM Physical Exam Const Vital Signs: 11/13/21 06:06 Temperature 98.3 F Temperature Source Oral Pulse Rate 126 H Respiratory Rate 20 H Blood Pressure 137/97 H Blood Pressure Mean 110 Pulse Ox 98 Oxygen Delivery Method Room Air Positive well nourished and well developed General Appearance ED: well developed HEENT Reports dry mucous membranes Mouth ED: Yes dry mucous membranes Mouth: dry mucous membranes Eyes PERRL and EOMs intact bilaterally General Eye ED: Negative for scleral icterus Neck supple Resp normal respiratory effort and clear to auscultation bilaterally Cardio regular rhythm Rate: tachycardic and other Other Details: Radial pulses are plus 2 out of 4 bilaterally are equal and symmetric GI non-distended GI Narrative: Abdomen is soft and nondistended with normoactive bowel sounds. Patient has diffuse pain across the lower abdomen with voluntary guarding. No rigidity or pulsatile mass or fluid wave noted. Auscultation: normoactive bowel sounds Palpation: soft Extremity normal to inspection Neuro oriented x3 and CN's II-XII intact bilaterally Sensorium / Orientation: alert Psych mental status grossly normal Skin no rashes or lesions noted Skin Narrative: No jaundice noted. Skin turgor is increased. MDM MDM MDM Narrative Medical decision making narrative: Patient presented to the ER afebrile but was tachycardic and has a physical exam consistent with dehydration. Patient and chart review shows that he had acute kidney injury about 2 years ago. With concern that dehydration has led to [place] once again basic blood work will be obtained. Because of his lower abdominal pain with voluntary guarding there is also concern for underlying intestinal infection so a CT scan of the abdomen pelvis will be obtained as well. Blood work and imaging studies are still pending and therefore patient will be signed out to Dr. Amato pending results. Patient was initially treated with 2 L of IV fluid as well as morphine and Zofran secondary to his symptoms Lab Data Labs: Laboratory Results - last 24 hr 11/13/21 11/13/21 11/13/21 06:20 06:20 06:20 WBC 13.0 H RBC 2.78 L Hgb 10.7 L Hct 30.9 L MCV 111.2 H MCH 38.5 H MCHC 34.6 RDW Std Deviation 63.5 H RDW Coeff of Jimmy 16.2 H Plt Count 1188 H* MPV 10.0 Immature Gran % (Auto) 1.500 H Neut % (Auto) 81.3 H Lymph % (Auto) 10.2 L [place] % (Auto) 6.6 Eos % (Auto) 0.1 Baso % (Auto) 0.3 Absolute Neuts (auto) 10.6 H Absolute Lymphs (auto) 1.32 Nucleated RBC % 0 Differential Comment SCANNED Diff Path Review May foll Platelet Estimate MKD INC Sodium Cancelled Potassium Cancelled Chloride Cancelled Carbon Dioxide Cancelled Anion Gap Cancelled BUN Cancelled Creatinine Cancelled Estim Creat Clear Calc Cancelled Est GFR (MDRD) Af Amer Cancelled Est GFR (MDRD) Non-Af Cancelled BUN/Creatinine Ratio Cancelled Glucose Cancelled Lactic Acid Cancelled Calcium Cancelled Total Bilirubin Cancelled Direct Bilirubin Cancelled AST Cancelled ALT Cancelled Alkaline Phosphatase Cancelled Total Protein Cancelled Albumin Cancelled Globulin Cancelled Lipase Cancelled Discharge Plan Triage Chief Complaint: Abd Pain ED Provider: David Xiao Dx/Rx/DC Orders Prescriptions: No Action hydroxyurea 500 MG capsule 1,500 mg PO DAILY [id number] 1 EACH blister with device 1 ea IH DAILY chlorthalidone 25 mg tablet 25 mg PO DAILY Label Comments: TAKE 1 TABLET BY MOUTH ONCE DAILY allopurinol 300 mg tablet 300 mg PO DAILY Label Comments: TAKE 1 TABLET BY MOUTH ONCE DAILY folic acid 800 mcg Tablet 0.8 mg PO DAILY B12 Active 1,000 mcg Tablet,Chewable 1,000 mcg PO DAILY Primary Care Provider: Alfreda Butler Referrals: Alfreda Butler MD [Primary Care Provider] -
[2021-11-13 07:42] LABS: AST(SGOT) 26 U/L (15-37); Alanine Aminotransfer ALT/SGPT 36 U/L (16-61); Albumin, Serum 2.5 g/dL (3.2-5.0); Alkaline Phosphatase 164 U/L (45-117); Anion Gap 7 (5-15); BUN 31 mg/dL (7-18); BUN/Creat Ratio 17.4 RATIO (10-20); Calcium,Total 8.6 mg/dL (8.5-10.1); Chloride 96 mmol/L (98-107); Creatinine, Serum 1.78 mg/dL (0.70-1.30); EST Glomerular Filtration Rate 42 mL/min (>60); Est Glom Filt Rate - Afr Amer 50 mL/min (>60); Estimated Creatinine Clearance 49.88 ml/min; Globulin 4.6 g/dL (2.2-4.2); Glucose 133 mg/dL (74-106); Lipase 104 U/L (73-393); Protein, Total 7.1 g/dL (6.4-8.2); Sodium Level 131 mmol/L (136-145)
[2021-11-13 07:59] LABS: Lactic Acid 1.4 mmol/L (0.4-1.9)
[2021-11-13] MEDS: metroNIDAZOLE 500 MG/100 ML BAG 100 MG IV (08:42)
[2021-11-13 08:57] VITALS: BP 125/79; PULSE 105; RESP 16; O2SAT 98
[2021-11-13 09:27] LABS: Mucous, Urine 0 SEEN /hpf (<or=2+); Red Blood Cells-Urine 0 SEEN /hpf (0-5); White Blood Cells 0 SEEN /hpf (0-5)
[2021-11-13 09:28] LABS: Color, Urine Yellow (Yellow); Glucose, Dipstick Normal (Normal); Ketone-Dipstick Negative (Negative); Leukocyte Esterase-Dipstick Negative /ul (Negative); Nitrite-Dipstick Negative (Negative); Occult Blood-Urine 10 /ul (Negative); Protein-Dipstick 30 mg/dl (Negative); Urine Bilirubin Dipstick Negative (Negative); Urine Clarity Clear (Clear); Urine Urobilinogen 4 mg/dl (Normal)
--- NOTE | 2021-11-13 09:35 | NURSING ---
Pharmacy contacted to confirm compatibility of cipro and flagyl. They advised they arecompatible.
[2021-11-13 09:36] LABS: Amorphous Sediment 2+; Bacteria 1+ /hpf (None Seen); Squamous Epithelial Cells - UA 0-5 SEEN /hpf (0-5)
[2021-11-13] MEDS: Ciprofloxacin 400 MG/200 ML BAG 200 MG IV (09:47)
[2021-11-13 10:20] VITALS: BP 116/76; PULSE 105; RESP 17; TEMP 37; O2SAT 99
[2021-11-13 12:42] VITALS: BP 116/75; PULSE 90; RESP 14; O2SAT 95
[2021-11-15 12:23] LABS: Pathologist Review Reviewed
== END 2021-11-13 13:09 | disposition short-term general hospital (02) ==
LOC: ED 07:12
PROVIDERS: Emergency Provider Emergency Medicine; PCP Internal Medicine; Visit Provider Emergency Medicine
DX: K63.0 Abscess of intestine (principal); D45 Polycythemia vera; I10 Essential (primary) hypertension
CPT/HCPCS: 36415; 74177; 80048; 80076; 81001; 83605; 83690; 85025; 96361; 96365; 96367; 96375; 96376; 99285; J7030; J7050; Q9967; A4216; J0744; J2405

== ENCOUNTER 2022-02-02 14:10 | Outpatient (RCR) | payer MEDICAID, SELFPAY ==
[2022-01-19 15:17] LABS: Absolute Lymphocyte Count 1.47 X10^3/uL (0.83-4.51); Absolute Neutrophil Count 5.5 X10^3/uL (2.0-7.7); Basophil# 0.02 X10^3/uL; Basophil% 0.3 % (0-1); Eosinophil# 0.08 X10^3/uL; Eosinophils% 1.1 % (0-5); Hematocrit 31.5 % (40-54); Hemoglobin 9.5 g/dL (13.0-16.5); Lymphocyte # 1.47 X10^3/ul (0.83-4.51); Lymphocyte % 19.8 % (19-41); Mean Corp Hgb Conc 30.2 g/dL (32-36); Mean Corpuscular Hgb 30.2 pg (27.0-32.0); Monocyte# 0.33 X10^3/uL; Monocyte% 4.4 % (0-10); NRBC Flagged by Analyzer 0 % (0-5); Neutrophil # 5.48 X10^3/uL (2.7-7.7); Neutrophil % 73.7 % (47-70); POSITIVE COUNT YES; POSITIVE MORPHOLOGY YES; RBC Distribution Width CV 25.1 % (11.6-14.6); RBC Distribution Width SD 87.5 fl (35.1-43.9); Red Blood Count 3.15 M/mm3 (4.6-6.2); White Blood Count 7.4 K/mm3 (4.4-11.0)
[2022-01-19 17:45] LABS: Differential Indicated SCAN CRITERIA MET; Platelet Count 1319 K/mm3 (150-450)
[2022-01-19 17:47] LABS: Anisocytosis 1+; Macrocytosis 1+; Platelet Estimate MKD INC (ADEQ); Platelet Morphology LARGE; Red Cell Morphology N CHROM NORMAL (NORM C&C)
[2022-01-20 13:34] LABS: Pathologist Review Reviewed
[2022-02-02 17:56] LABS: Absolute Lymphocyte Count 1.51 X10^3/uL (0.83-4.51); Absolute Neutrophil Count 3.6 X10^3/uL (2.0-7.7); Basophil# 0.03 X10^3/uL; Basophil% 0.5 % (0-1); Eosinophil# 0.17 X10^3/uL; Eosinophils% 3.1 % (0-5); Hematocrit 31.4 % (40-54); Hemoglobin 10.1 g/dL (13.0-16.5); Lymphocyte # 1.51 X10^3/ul (0.83-4.51); Lymphocyte % 27.3 % (19-41); Mean Corp Hgb Conc 32.2 g/dL (32-36); Mean Corpuscular Volume 102.6 fL (80-94); Mean Platelet Vol. 8.7 fl (6.2-12.0); Monocyte# 0.21 X10^3/uL; Monocyte% 3.8 % (0-10); NRBC Flagged by Analyzer 0 % (0-5); Neutrophil # 3.58 X10^3/uL (2.7-7.7); Neutrophil % 64.8 % (47-70); POSITIVE COUNT YES; POSITIVE MORPHOLOGY YES; RBC Distribution Width CV 26.3 % (11.6-14.6); RBC Distribution Width SD 95.2 fl (35.1-43.9); Red Blood Count 3.06 M/mm3 (4.6-6.2); White Blood Count 5.5 K/mm3 (4.4-11.0)
[2022-02-02 18:29] LABS: Differential Indicated SCAN CRITERIA MET
[2022-02-02 18:44] LABS: Platelet Count 1085 K/mm3 (150-450)
[2022-02-02 19:22] LABS: Anisocytosis 3+; Platelet Estimate MKD INC (ADEQ); Red Cell Morphology N CHROM NORMAL (NORM C&C); Schistocytes RARE; Tear Drop Cell 1+
[2022-02-04 15:39] LABS: Pathologist Review Reviewed
== END 2022-02-02 18:00 | disposition home or self-care (01) ==
LOC: MTLAB 14:10
PROVIDERS: PCP Internal Medicine; Referring Provider Internal Medicine Hematology & Oncology; Visit Provider Internal Medicine Hematology & Oncology
DX: D47.3 Essential (hemorrhagic) thrombocythemia (principal)
CPT/HCPCS: 36415; 85025

== ENCOUNTER → 2022-02-16 | Outpatient (CLI) | payer MEDICAID, SELFPAY ==
[2022-02-16 10:49] LABS: Color, Urine Yellow (Yellow); Glucose, Dipstick Normal (Normal); Ketone-Dipstick Negative (Negative); Leukocyte Esterase-Dipstick Negative /ul (Negative); Nitrite-Dipstick Negative (Negative); Occult Blood-Urine Negative /ul (Negative); Protein-Dipstick Negative (Negative); Urine Bilirubin Dipstick Negative (Negative); Urine Clarity Clear (Clear); Urine Urobilinogen Normal (Normal)
== END | disposition home or self-care (01) ==
LOC: LABSPEC 07:15
PROVIDERS: PCP Internal Medicine
DX: K57.20 Diverticulitis of large intestine with perforation and abscess without bleeding (principal)
CPT/HCPCS: 81002

== ENCOUNTER 2022-03-02 07:54 | Outpatient (RCR) | payer MEDICAID, SELFPAY ==
[2022-02-09 17:57] LABS: Absolute Lymphocyte Count 1.14 X10^3/uL (0.83-4.51); Absolute Neutrophil Count 3.1 X10^3/uL (2.0-7.7); Basophil# 0.02 X10^3/uL; Basophil% 0.4 % (0-1); Eosinophil# 0.09 X10^3/uL; Hematocrit 32.2 % (40-54); Hemoglobin 10.2 g/dL (13.0-16.5); Lymphocyte # 1.14 X10^3/ul (0.83-4.51); Lymphocyte % 24.9 % (19-41); Mean Corp Hgb Conc 31.7 g/dL (32-36); Mean Corpuscular Hgb 33.1 pg (27.0-32.0); Mean Corpuscular Volume 104.5 fL (80-94); Mean Platelet Vol. 8.8 fl (6.2-12.0); Monocyte# 0.17 X10^3/uL; Monocyte% 3.7 % (0-10); NRBC Flagged by Analyzer 0 % (0-5); Neutrophil # 3.13 X10^3/uL (2.7-7.7); Neutrophil % 68.6 % (47-70); POSITIVE COUNT YES; POSITIVE MORPHOLOGY YES; RBC Distribution Width CV 25.7 % (11.6-14.6); RBC Distribution Width SD 96.8 fl (35.1-43.9); Red Blood Count 3.08 M/mm3 (4.6-6.2); White Blood Count 4.6 K/mm3 (4.4-11.0)
[2022-02-09 18:17] LABS: Differential Indicated SCAN CRITERIA MET; Platelet Count 832 K/mm3 (150-450)
[2022-02-09 19:09] LABS: Anisocytosis 3+; Differential Comment SCANNED; Macrocytosis 2+; Microcytosis 1+
[2022-02-10 15:28] LABS: Pathologist Review Reviewed
[2022-02-15 17:58] LABS: Absolute Lymphocyte Count 1.36 X10^3/uL (0.83-4.51); Absolute Neutrophil Count 2.4 X10^3/uL (2.0-7.7); Basophil# 0.02 X10^3/uL; Basophil% 0.5 % (0-1); Eosinophil# 0.16 X10^3/uL; Eosinophils% 3.9 % (0-5); Hematocrit 34.4 % (40-54); Hemoglobin 11.1 g/dL (13.0-16.5); Lymphocyte # 1.36 X10^3/ul (0.83-4.51); Lymphocyte % 33.4 % (19-41); Mean Corp Hgb Conc 32.3 g/dL (32-36); Mean Corpuscular Hgb 34.4 pg (27.0-32.0); Mean Corpuscular Volume 106.5 fL (80-94); Monocyte# 0.13 X10^3/uL; Monocyte% 3.2 % (0-10); NRBC Flagged by Analyzer 0 % (0-5); Neutrophil # 2.38 X10^3/uL (2.7-7.7); Neutrophil % 58.5 % (47-70); POSITIVE MORPHOLOGY YES; Platelet Count 750 K/mm3 (150-450); RBC Distribution Width CV 24.8 % (11.6-14.6); RBC Distribution Width SD 93.7 fl (35.1-43.9); Red Blood Count 3.23 M/mm3 (4.6-6.2); White Blood Count 4.1 K/mm3 (4.4-11.0)
[2022-02-15 18:17] LABS: Differential Indicated SCAN CRITERIA MET
[2022-02-15 18:49] LABS: Anisocytosis 1+; Macrocytosis 1+; Platelet Estimate MKD INC (ADEQ); Red Cell Morphology N CHROM NORMAL (NORM C&C)
[2022-03-02 10:32] LABS: Absolute Neutrophil Count 2.8 X10^3/uL (2.0-7.7); Basophil# 0.01 X10^3/uL; Basophil% 0.2 % (0-1); Eosinophil# 0.15 X10^3/uL; Eosinophils% 3.3 % (0-5); Hematocrit 37.1 % (40-54); Hemoglobin 12.4 g/dL (13.0-16.5); Immature Platelet Fraction 1.7 % (1.0-7.9); Lymphocyte % 28.6 % (19-41); Mean Corp Hgb Conc 33.4 g/dL (32-36); Mean Corpuscular Hgb 36.5 pg (27.0-32.0); Mean Corpuscular Volume 109.1 fL (80-94); Mean Platelet Vol. 9.1 fl (6.2-12.0); Monocyte# 0.22 X10^3/uL; Monocyte% 4.8 % (0-10); NRBC Flagged by Analyzer 0 % (0-5); Neutrophil # 2.83 X10^3/uL (2.7-7.7); Neutrophil % 62.4 % (47-70); POSITIVE COUNT YES; POSITIVE MORPHOLOGY YES; Platelet Count 783 K/mm3 (150-450); RBC Distribution Width CV 22.5 % (11.6-14.6); RBC Distribution Width SD 88.7 fl (35.1-43.9); RET-HE 40.6 pg (30-35); Reticulocyte Count 3.05 % (0.5-1.5); White Blood Count 4.5 K/mm3 (4.4-11.0)
[2022-03-02 10:39] LABS: Vitamin B12 449 pg/mL (211-911)
[2022-03-02 10:54] LABS: Differential Indicated SCAN CRITERIA MET; Platelet Count 783 K/mm3 (150-450)
[2022-03-02 10:55] LABS: ALB/GLOB Ratio 0.9 RATIO (0.9-2.4); AST(SGOT) 22 U/L (15-37); Alanine Aminotransfer ALT/SGPT 35 U/L (16-61); Albumin, Serum 3.3 g/dL (3.2-5.0); Alkaline Phosphatase 108 U/L (45-117); Anion Gap 7 (5-15); BUN 19 mg/dL (7-18); BUN/Creat Ratio 18.1 RATIO (10-20); Calcium,Total 9.1 mg/dL (8.5-10.1); Chloride 105 mmol/L (98-107); Creatinine, Serum 1.05 mg/dL (0.70-1.30); EST Glomerular Filtration Rate 77 mL/min (>60); Est Glom Filt Rate - Afr Amer 93 mL/min (>60); Ferritin 257 ng/mL (26-388); Globulin 3.6 g/dL (2.2-4.2); Glucose 83 mg/dL (74-106); Iron 95 ug/dL (65-175); Iron Binding Capacity,Total 283 ug/dL (250-450); LDH 191 U/L (87-241); Potassium 3.7 mmol/L (3.5-5.1); Protein, Total 6.9 g/dL (6.4-8.2); Sodium Level 141 mmol/L (136-145)
[2022-03-02 11:02] LABS: Differential Comment SCANNED
[2022-03-02 11:03] LABS: Anisocytosis 2+; Macrocytosis 1+; Microcytosis 1+; Platelet Estimate MKD INC (ADEQ); Platelet Morphology LARGE
[2022-03-02 13:23] LABS: Pathologist Review Reviewed
== END 2022-03-09 18:00 | disposition home or self-care (01) ==
LOC: MTLAB 07:54
PROVIDERS: PCP Internal Medicine; Referring Provider Internal Medicine Hematology & Oncology; Visit Provider Internal Medicine Hematology & Oncology
DX: D47.3 Essential (hemorrhagic) thrombocythemia (principal)
CPT/HCPCS: 36415; 80053; 82607; 82728; 82746; 83540; 83550; 83615; 85025; 85045

== ENCOUNTER 2022-03-30 09:30 | Outpatient (RCR) | payer MEDICAID, SELFPAY ==
[2022-03-16 10:18] LABS: Absolute Lymphocyte Count 1.14 X10^3/uL (0.83-4.51); Absolute Neutrophil Count 2.6 X10^3/uL (2.0-7.7); Basophil# 0.01 X10^3/uL; Basophil% 0.3 % (0-1); Eosinophil# 0.03 X10^3/uL; Eosinophils% 0.8 % (0-5); Hematocrit 38.8 % (40-54); Lymphocyte # 1.14 X10^3/ul (0.83-4.51); Lymphocyte % 29.3 % (19-41); Mean Corp Hgb Conc 33.5 g/dL (32-36); Mean Corpuscular Hgb 38.3 pg (27.0-32.0); Mean Corpuscular Volume 114.5 fL (80-94); Mean Platelet Vol. 8.8 fl (6.2-12.0); Monocyte# 0.12 X10^3/uL; Monocyte% 3.1 % (0-10); NRBC Flagged by Analyzer 0 % (0-5); Neutrophil # 2.56 X10^3/uL (2.7-7.7); Neutrophil % 65.7 % (47-70); POSITIVE MORPHOLOGY YES; Platelet Count 746 K/mm3 (150-450); RBC Distribution Width CV 20.1 % (11.6-14.6); RET-HE 44.8 pg (30-35); Red Blood Count 3.39 M/mm3 (4.6-6.2); Reticulocyte Count 3.09 % (0.5-1.5); White Blood Count 3.9 K/mm3 (4.4-11.0)
[2022-03-16 10:34] LABS: Differential Indicated SCAN CRITERIA MET
[2022-03-16 10:48] LABS: Vitamin B12 440 pg/mL (211-911)
[2022-03-16 10:51] LABS: Anisocytosis 2+; Differential Comment SCANNED; Macrocytosis 1+; Microcytosis 1+
[2022-03-16 11:03] LABS: ALB/GLOB Ratio 1.1 RATIO (0.9-2.4); AST(SGOT) 25 U/L (15-37); Alanine Aminotransfer ALT/SGPT 21 U/L (16-61); Albumin, Serum 3.5 g/dL (3.2-5.0); Alkaline Phosphatase 106 U/L (45-117); Anion Gap 5 (5-15); BUN 23 mg/dL (7-18); BUN/Creat Ratio 20.2 RATIO (10-20); Calcium,Total 9.2 mg/dL (8.5-10.1); Chloride 102 mmol/L (98-107); Creatinine, Serum 1.14 mg/dL (0.70-1.30); EST Glomerular Filtration Rate 70 mL/min (>60); Est Glom Filt Rate - Afr Amer 84 mL/min (>60); Ferritin 266 ng/mL (26-388); Globulin 3.3 g/dL (2.2-4.2); Glucose 96 mg/dL (74-106); Iron 85 ug/dL (65-175); Iron Binding Capacity,Total 303 ug/dL (250-450); LDH 215 U/L (87-241); PERCENT IRON SATURATION 28.1 % (15.0-55.0); Potassium 4.7 mmol/L (3.5-5.1); Protein, Total 6.8 g/dL (6.4-8.2); Sodium Level 138 mmol/L (136-145)
[2022-03-30 09:44] LABS: Mucous, Urine 0 SEEN /hpf (<or=2+); Red Blood Cells-Urine 0 SEEN /hpf (0-5)
[2022-03-30 10:43] LABS: Color, Urine Amber (Yellow); Glucose, Dipstick Normal (Normal); Ketone-Dipstick Negative (Negative); Leukocyte Esterase-Dipstick 25 /ul (Negative); Nitrite-Dipstick Positive (Negative); Occult Blood-Urine Negative /ul (Negative); Protein-Dipstick 30 mg/dl (Negative); Specific Gravity, Urine 1.005 (1.002-1.030); Urine Clarity Clear (Clear); Urine Urobilinogen 4 mg/dl (Normal)
[2022-03-30 11:03] LABS: Urine Bilirubin Dipstick 1 mg/dL (Negative)
[2022-03-30 11:23] LABS: Bacteria RARE /hpf (None Seen); Squamous Epithelial Cells - UA 0-5 SEEN /hpf (0-5); White Blood Cells 0-5 SEEN /hpf (0-5)
[2022-03-30 12:41] LABS: Absolute Lymphocyte Count 0.83 X10^3/uL (0.83-4.51); Absolute Neutrophil Count 1.9 X10^3/uL (2.0-7.7); Basophil# 0.01 X10^3/uL; Basophil% 0.4 % (0-1); Eosinophil# 0.03 X10^3/uL; Eosinophils% 1.1 % (0-5); Hematocrit 39.1 % (40-54); Lymphocyte # 0.83 X10^3/ul (0.83-4.51); Lymphocyte % 29.5 % (19-41); Mean Corp Hgb Conc 35.8 g/dL (32-36); Mean Corpuscular Hgb 41.9 pg (27.0-32.0); Mean Corpuscular Volume 117.1 fL (80-94); Mean Platelet Vol. 8.2 fl (6.2-12.0); Monocyte# 0.06 X10^3/uL; Monocyte% 2.1 % (0-10); NRBC Flagged by Analyzer 0 % (0-5); Neutrophil # 1.87 X10^3/uL (2.7-7.7); Neutrophil % 66.5 % (47-70); POSITIVE MORPHOLOGY YES; Platelet Count 395 K/mm3 (150-450); RBC Distribution Width CV 18.7 % (11.6-14.6); RBC Distribution Width SD 81.9 fl (35.1-43.9); Red Blood Count 3.34 M/mm3 (4.6-6.2); White Blood Count 2.8 K/mm3 (4.4-11.0)
[2022-03-30 12:51] LABS: ALB/GLOB Ratio 1.1 RATIO (0.9-2.4); AST(SGOT) 18 U/L (15-37); Alanine Aminotransfer ALT/SGPT 27 U/L (16-61); Albumin, Serum 3.4 g/dL (3.2-5.0); Alkaline Phosphatase 107 U/L (45-117); Anion Gap 4 (5-15); BUN 20 mg/dL (7-18); BUN/Creat Ratio 16.9 RATIO (10-20); Calcium,Total 8.8 mg/dL (8.5-10.1); Chloride 101 mmol/L (98-107); Creatinine, Serum 1.18 mg/dL (0.70-1.30); EST Glomerular Filtration Rate 67 mL/min (>60); Est Glom Filt Rate - Afr Amer 81 mL/min (>60); Globulin 3.2 g/dL (2.2-4.2); Glucose 89 mg/dL (74-106); Potassium 4.5 mmol/L (3.5-5.1); Protein, Total 6.6 g/dL (6.4-8.2); Sodium Level 139 mmol/L (136-145)
[2022-03-30 12:57] LABS: Differential Indicated SCAN CRITERIA MET
[2022-03-30 13:14] LABS: Anisocytosis 2+; Differential Comment SCANNED; Macrocytosis 1+; Microcytosis 1+
== END 2022-03-30 18:00 | disposition home or self-care (01) ==
LOC: MTLAB 09:30
PROVIDERS: PCP Internal Medicine; Referring Provider Internal Medicine Hematology & Oncology; Visit Provider Internal Medicine Hematology & Oncology
DX: D47.3 Essential (hemorrhagic) thrombocythemia (principal); R30.0 Dysuria
CPT/HCPCS: 36415; 80053; 81001; 82607; 82728; 82746; 83540; 83550; 83615; 85025; 85045; 87086; 87088

== ENCOUNTER 2022-04-27 10:46 | Outpatient (RCR) | payer MEDICAID, SELFPAY ==
[2022-04-13 12:56] LABS: Absolute Lymphocyte Count 0.88 X10^3/uL (0.83-4.51); Absolute Neutrophil Count 1.4 X10^3/uL (2.0-7.7); Basophil# 0.01 X10^3/uL; Basophil% 0.4 % (0-1); Eosinophil# 0.04 X10^3/uL; Eosinophils% 1.6 % (0-5); Hematocrit 37.5 % (40-54); Hemoglobin 13.2 g/dL (13.0-16.5); Lymphocyte # 0.88 X10^3/ul (0.83-4.51); Lymphocyte % 34.9 % (19-41); Mean Corp Hgb Conc 35.2 g/dL (32-36); Mean Corpuscular Hgb 42.3 pg (27.0-32.0); Mean Corpuscular Volume 120.2 fL (80-94); Mean Platelet Vol. 8.8 fl (6.2-12.0); Monocyte# 0.16 X10^3/uL; Monocyte% 6.3 % (0-10); Neutrophil # 1.43 X10^3/uL (2.7-7.7); Neutrophil % 56.8 % (47-70); POSITIVE MORPHOLOGY YES; Platelet Count 523 K/mm3 (150-450); RBC Distribution Width CV 17.4 % (11.6-14.6); RBC Distribution Width SD 77.3 fl (35.1-43.9); Red Blood Count 3.12 M/mm3 (4.6-6.2); White Blood Count 2.5 K/mm3 (4.4-11.0)
[2022-04-13 12:59] LABS: Differential Indicated SCAN CRITERIA MET
[2022-04-13 13:32] LABS: Anisocytosis 1+; Platelet Estimate ADEQUATE (ADEQ)
[2022-04-27 12:49] LABS: Absolute Lymphocyte Count 1.01 X10^3/uL (0.83-4.51); Absolute Neutrophil Count 1.5 X10^3/uL (2.0-7.7); Basophil# 0.01 X10^3/uL; Basophil% 0.4 % (0-1); Eosinophil# 0.02 X10^3/uL; Eosinophils% 0.7 % (0-5); Hematocrit 33.5 % (40-54); Hemoglobin 11.9 g/dL (13.0-16.5); Lymphocyte # 1.01 X10^3/ul (0.83-4.51); Lymphocyte % 36.9 % (19-41); Mean Corp Hgb Conc 35.5 g/dL (32-36); Mean Corpuscular Volume 120.9 fL (80-94); Mean Platelet Vol. 8.8 fl (6.2-12.0); Monocyte# 0.18 X10^3/uL; Monocyte% 6.6 % (0-10); NRBC Flagged by Analyzer 0 % (0-5); Neutrophil # 1.51 X10^3/uL (2.7-7.7); POSITIVE MORPHOLOGY YES; Platelet Count 406 K/mm3 (150-450); RBC Distribution Width CV 17.2 % (11.6-14.6); RBC Distribution Width SD 74.4 fl (35.1-43.9); Red Blood Count 2.77 M/mm3 (4.6-6.2); White Blood Count 2.7 K/mm3 (4.4-11.0)
[2022-04-27 13:09] LABS: Differential Indicated SCAN CRITERIA MET
[2022-04-27 14:16] LABS: Anisocytosis 2+; Macrocytosis 2+; Ovalocyte 1+; Polychromasia 1+; Tear Drop Cell 1+
== END 2022-04-27 12:46 | disposition home or self-care (01) ==
LOC: MTLAB 10:46
PROVIDERS: PCP Internal Medicine; Referring Provider Internal Medicine Hematology & Oncology; Visit Provider Internal Medicine Hematology & Oncology
DX: D47.3 Essential (hemorrhagic) thrombocythemia (principal)
CPT/HCPCS: 36415; 85025

== ENCOUNTER 2022-05-25 14:05 | Outpatient (RCR) | payer MEDICAID, SELFPAY ==
[2022-05-12 15:11] LABS: Absolute Lymphocyte Count 0.89 X10^3/uL (0.83-4.51); Basophil# 0.01 X10^3/uL; Basophil% 0.3 % (0-1); Eosinophil# 0.01 X10^3/uL; Eosinophils% 0.3 % (0-5); Hematocrit 30.9 % (40-54); Hemoglobin 10.8 g/dL (13.0-16.5); Lymphocyte # 0.89 X10^3/ul (0.83-4.51); Lymphocyte % 27.9 % (19-41); Mean Corpuscular Hgb 44.8 pg (27.0-32.0); Mean Corpuscular Volume 128.2 fL (80-94); Mean Platelet Vol. 8.7 fl (6.2-12.0); Monocyte# 0.25 X10^3/uL; Monocyte% 7.8 % (0-10); NRBC Flagged by Analyzer 0.6 % (0-5); Neutrophil # 2.02 X10^3/uL (2.7-7.7); Neutrophil % 63.4 % (47-70); POSITIVE MORPHOLOGY YES; Platelet Count 441 K/mm3 (150-450); RBC Distribution Width CV 17.3 % (11.6-14.6); RBC Distribution Width SD 81.2 fl (35.1-43.9); Red Blood Count 2.41 M/mm3 (4.6-6.2); White Blood Count 3.2 K/mm3 (4.4-11.0)
[2022-05-12 15:18] LABS: Differential Indicated SCAN CRITERIA MET
[2022-05-12 16:39] LABS: Differential Comment SCANNED
[2022-05-25 17:51] LABS: Absolute Lymphocyte Count 0.73 X10^3/uL (0.83-4.51); Absolute Neutrophil Count 2.5 X10^3/uL (2.0-7.7); Basophil# 0.01 X10^3/uL; Basophil% 0.3 % (0-1); Eosinophil# 0.01 X10^3/uL; Eosinophils% 0.3 % (0-5); Hematocrit 31.4 % (40-54); Hemoglobin 10.9 g/dL (13.0-16.5); Lymphocyte # 0.73 X10^3/ul (0.83-4.51); Lymphocyte % 21.8 % (19-41); Mean Corp Hgb Conc 34.7 g/dL (32-36); Mean Corpuscular Hgb 46.2 pg (27.0-32.0); Mean Corpuscular Volume 133.1 fL (80-94); Mean Platelet Vol. 8.5 fl (6.2-12.0); Monocyte# 0.11 X10^3/uL; Monocyte% 3.3 % (0-10); NRBC Flagged by Analyzer 0.6 % (0-5); Neutrophil # 2.48 X10^3/uL (2.7-7.7); POSITIVE MORPHOLOGY YES; Platelet Count 588 K/mm3 (150-450); RBC Distribution Width CV 16.7 % (11.6-14.6); RBC Distribution Width SD 80.4 fl (35.1-43.9); RET-HE 43.9 pg (30-35); Red Blood Count 2.36 M/mm3 (4.6-6.2); Reticulocyte Count 4.93 % (0.5-1.5); White Blood Count 3.4 K/mm3 (4.4-11.0)
[2022-05-25 17:58] LABS: Differential Indicated SCAN CRITERIA MET
[2022-05-25 18:31] LABS: Anisocytosis 1+; Differential Comment SCANNED
[2022-05-25 19:14] LABS: ALB/GLOB Ratio 0.9 RATIO (0.9-2.4); AST(SGOT) 28 U/L (15-37); Alanine Aminotransfer ALT/SGPT 20 U/L (16-61); Albumin, Serum 3.3 g/dL (3.2-5.0); Alkaline Phosphatase 94 U/L (45-117); Anion Gap 6 (5-15); BUN 20 mg/dL (7-18); Calcium,Total 9.2 mg/dL (8.5-10.1); Chloride 103 mmol/L (98-107); Creatinine, Serum 1.25 mg/dL (0.70-1.30); EST Glomerular Filtration Rate 63 mL/min (>60); Est Glom Filt Rate - Afr Amer 76 mL/min (>60); Ferritin 230 ng/mL (26-388); Globulin 3.7 g/dL (2.2-4.2); Glucose 112 mg/dL (74-106); Iron 115 ug/dL (65-175); Iron Binding Capacity,Total 297 ug/dL (250-450); PERCENT IRON SATURATION 38.7 % (15.0-55.0); Sodium Level 138 mmol/L (136-145)
[2022-05-25 20:40] LABS: Vitamin B12 379 pg/mL (211-911)
[2022-06-01 04:07] LABS: LDH 282 IU/L (121-224); LDH Fraction 1 24 % (17-32); LDH Fraction 2 34 % (25-40); LDH Fraction 3 23 % (17-27); LDH Fraction 4 10 % (5-13); LDH Fraction 5 9 % (4-20)
== END 2022-05-25 18:00 | disposition home or self-care (01) ==
LOC: MTLAB 14:05
PROVIDERS: PCP Internal Medicine; Referring Provider Internal Medicine Hematology & Oncology; Visit Provider Internal Medicine Hematology & Oncology
DX: D47.3 Essential (hemorrhagic) thrombocythemia (principal)
CPT/HCPCS: 36415; 80053; 82607; 82728; 82746; 83540; 83550; 83615; 83625; 85025; 85045

== ENCOUNTER 2022-06-15 13:44 | Outpatient (RCR) | payer MEDICAID, SELFPAY ==
[2022-06-15 15:28] LABS: Absolute Lymphocyte Count 0.79 X10^3/uL (0.83-4.51); Absolute Neutrophil Count 1.8 X10^3/uL (2.0-7.7); Eosinophil# 0.05 X10^3/uL; Eosinophils% 1.8 % (0-5); Hematocrit 26.1 % (40-54); Hemoglobin 8.8 g/dL (13.0-16.5); Lymphocyte # 0.79 X10^3/ul (0.83-4.51); Lymphocyte % 27.9 % (19-41); Mean Corp Hgb Conc 33.7 g/dL (32-36); Mean Corpuscular Hgb 43.3 pg (27.0-32.0); Mean Corpuscular Volume 128.6 fL (80-94); Mean Platelet Vol. 8.8 fl (6.2-12.0); Monocyte# 0.15 X10^3/uL; Monocyte% 5.3 % (0-10); NRBC Flagged by Analyzer 0 % (0-5); Neutrophil # 1.83 X10^3/uL (2.7-7.7); Neutrophil % 64.6 % (47-70); POSITIVE MORPHOLOGY YES; Platelet Count 558 K/mm3 (150-450); RBC Distribution Width CV 14.2 % (11.6-14.6); Red Blood Count 2.03 M/mm3 (4.6-6.2); White Blood Count 2.8 K/mm3 (4.4-11.0)
[2022-06-15 15:32] LABS: Differential Indicated SCAN CRITERIA MET
[2022-06-15 15:42] LABS: Differential Comment SCANNED
[2022-06-15 15:43] LABS: Anisocytosis 2+; Polychromasia 1+
[2022-06-15 15:44] LABS: Macrocytosis 2+
[2022-06-15 15:46] LABS: Ovalocyte 1+
== END 2022-07-08 18:00 | disposition home or self-care (01) ==
LOC: MTLAB 13:44
PROVIDERS: PCP Internal Medicine; Referring Provider Internal Medicine Hematology & Oncology; Visit Provider Internal Medicine Hematology & Oncology
DX: D47.3 Essential (hemorrhagic) thrombocythemia (principal)
CPT/HCPCS: 36415; 85025

== ENCOUNTER 2022-08-09 16:55 | Inpatient (IN) | payer MEDICAID, SELFPAY ==
[2022-08-09] VITALS (13 sets, daily range): BP systolic 108–129; BP diastolic 72–98; PULSE 73–105; RESP 14–22; TEMP 36.1–36.9; O2SAT 95–100; BMI 22.9; BMI 22.6
--- NOTE | 2022-08-09 17:06 | ED.VIS.DYS ---
HPI History of Present Illness Chief Complaint: Shortness of Breath Narrative Narrative: 61-year-old male here with shortness of breath dizziness and weakness. The patient further states he is not feeling progressively short of breath, weak and dizzy with any exertion. He denies any orthopnea lower extremity edema or paroxysmal nocturnal dyspnea. Denies any chest pain. Shortness of breath is exertional only. Denies cough or fever. Denies any melena, hematochezia or any other bleeding diathesis. The patient denies recent surgery in the last 4 weeks or immobilization in the last 3 days, denies previous diagnosis of DVT or PE, hemoptysis, unilateral leg swelling or malignancy with treatment the last 6 months. No estrogen use noted. [facility] Medical History (Updated 08/09/22 @ 19:[address] Vinita Mei MD) Benign essential hypertension Chronic leukopenia CKD (chronic kidney disease), stage II COPD (chronic obstructive pulmonary disease) Essential (hemorrhagic) thrombocythemia History of GI bleed Thrombocytosis Home Medications hydroxyurea 500 mg capsule 2,000 mg PO DAILY cancer 05/11/13 [History Last Taken 06/06/19] allopurinol 300 mg tablet 300 mg PO DAILY 11/13/21 [History Last Taken Unknown] chlorthalidone 25 mg tablet 25 mg PO DAILY 11/13/21 [History Last Taken Unknown] Allergy/AdvReac Type Severity Reaction Status Date / Time No Known Allergies Allergy Verified 08/09/22 16:55 Family History (Updated 08/09/22 @ 19:[address] Vinita Mei MD) Mother Dementia Father CVA (cerebral vascular accident) Hypertension Surgical History (Updated 08/09/22 @ 19:[address] Vinita Mei MD) H/O neck surgery History of tonsillectomy and adenoidectomy Social History (Updated 08/09/22 @ 19:[address] Vinita Mei MD) household members: none Smoking Status: Never smoker alcohol intake: never substance use type: does not use ROS ROS ED ROS Narrative Constitutional: Denies fever HEENT: Denies sore throat Neck: Denies neck pain Cardiovascular: Denies chest pain, syncope Respiratory: Endorses shortness of breath GI: Denies nausea vomiting or abdominal pain : Denies changes in urinary habits Musculoskeletal: Denies muscle or joint pain Neurologic: Denies numbness or loss of sensation, endorses dizziness and weakness Skin denies rash EXAM Physical Exam Narrative Exam Narrative: Nursing triage notes reviewed, Vital signs reviewed Constitutional: please see mdm HENT: MMM Eyes: Pupils equal round and reactive to light, Extraocular muscles intact Neck: No stridor, no JVD, full neck ROM Lungs: Clear to auscultation, No wheezing or rales. No increased work of breathing, no conversational dyspnea, no accessory muscle use, no nasal flaring. No respiratory distress noted Heart: Regular rate and rhythm, No murmurs, No rubs and No gallops, 2+ distal pulses (radial, femoral, posterior tibial) in all extremities Abdomen: Soft, there is no tenderness, rigidity, rebound or guarding, no obvious peritoneal signs, no palpable pulsatile abdominal masses, no auscultated abdominal bruit : No CVAT Extremities: No edema Neuro: Alert and oriented x3, neuro exam at baseline, cranial nerves II through XII are intact. No pain with extraocular muscle movement. There is negative test of skew. Normal speech. 5 of 5 strength in upper and lower extremities in flexion extension. Intact sensation to light touch in upper and lower extremity dermatomes. No truncal or extremity ataxia. No dysdiadochokinesia. Normal gait. 2+ reflexes. No meningeal signs. Negative Babinski. NIH of 0 Skin: No rash or lesions noted Const Vital Signs: 08/09/22 16:56 08/09/22 17:02 08/09/22 17:41 Temperature 96.9 F L Temperature Source Temporal Pulse Rate 105 H 82 Respiratory Rate 22 H 14 Respiratory Effort Normal Non-Labored Respiratory Depth Normal Respiratory Pattern Normal Blood Pressure 129/85 H 116/74 Blood Pressure Mean 99 87 Pulse Ox 100 Oxygen Delivery Method Room Air Room Air 08/09/22 18:00 08/09/22 18:30 08/09/22 18:45 Temperature Temperature Source Pulse Rate 80 80 75 Respiratory Rate 15 18 16 Respiratory Effort Respiratory Depth Respiratory Pattern Blood Pressure 125/72 H 117/76 115/74 Blood Pressure Mean 86 89 87 Pulse Ox Oxygen Delivery Method 08/09/22 19:00 Temperature Temperature Source Pulse Rate 77 Respiratory Rate 15 Respiratory Effort Respiratory Depth Respiratory Pattern Blood Pressure 116/72 Blood Pressure Mean 84 Pulse Ox Oxygen Delivery Method MDM MDM MDM Narrative Medical decision making narrative: Chief Complaint: Shortness of breath, dizziness, weakness External records reviewed: No recent catheterizations, stress test or echocardiograms noted in the chart MDM: Patient was initially tachycardic, tachypneic saturating well on room air. Physical exam without focal cardiopulmonary abnormalities. No focal neurologic deficits I considered the following differential diagnosis: PE, ACS, arrhythmia, anemia, pneumonia, COVID, flu, CHF, COPD exacerbation I obtained a broad lab and imaging work-up to further elucidate etiology patient complaints. Labs images remarkable for significant anemia. No evidence of electrolyte abnormality, myocardial ischemia. Exam not consistent with infectious etiology. No signs of CHF on chest x-ray or BNP. Patient low risk Wells score and as such do not think patient suffering pulmonary embolism in the setting of severe anemia. I considered obtaining a CT of the chest however thought this was not necessary given severe anemia is much better explanation of the patient's symptoms. Patient will need admission for blood transfusion, investigation of source of anemia. Will discuss with hospitalist. Discussed with Dr. Mei. Factors affecting care: History of hypertension, acute renal failure, GI bleed Social determinants of health: Never smoker History obtained from others: Shared decision making: I will have a discussion with the patient and or visitors regarding risk/benefits of further testing or admission. They will be made aware of of the risk/benefits inherent in this decision they will be given the opportunity to voice understanding. Consults: Internal medicine Lab Data Attestation: I reviewed the patient's lab results. Lab results narrative: CBC with leukopenia, severe anemia, no thrombocytopenia. Hemoglobin is 8.8 in June 2022 he is down 3.7 g/dL EKG with normal sinus rhythm, normal axis, no intervals, no STEMI BMP without evidence of significant electrolyte abnormalities, no anion gap to suggest endorgan hypoperfusion, mildly elevated creatinine suggest dehydration. BNP within normal limits suggestive of no volume overload Troponin is negative, no evidence of myocardial ischemia Labs: Laboratory Results - last 24 hr 08/09/22 08/09/22 08/09/22 17:40 17:40 17:40 WBC 2.3 L RBC 1.11 L Hgb 5.1 L* Hct 14.3 L MCV 128.8 H MCH 45.9 H MCHC 35.7 RDW Std Deviation 86.2 H RDW Coeff of Jimmy 20.3 H Plt Count 202 MPV 8.5 Immature Gran % (Auto) 0.900 Neut % (Auto) 49.5 Lymph % (Auto) 46.5 H Antelope % (Auto) 3.1 Eos % (Auto) 0.0 Baso % (Auto) 0.0 Absolute Neuts (auto) 1.1 L Absolute Lymphs (auto) 1.05 Nucleated RBC % 1.3 Differential Comment SCANNED Diff Path Review May foll Polychromasia 1+ Anisocytosis 3+ Microcytosis 1+ Macrocytosis 2+ Sodium 136 Potassium 4.5 Chloride 102 Carbon Dioxide 26.0 Anion Gap 8 BUN 33 H Creatinine 1.51 H Estim Creat Clear Calc 58.06 Est GFR (MDRD) Af Amer 61 Est GFR (MDRD) Non-Af 50 L BUN/Creatinine Ratio 21.9 H Glucose 103 Calcium 8.8 Troponin I High Sens 10 B-Natriuretic Peptide 17.0 Blood Type Antibody Screen Crossmatch 08/09/22 18:29 WBC RBC Hgb Hct MCV MCH MCHC RDW Std Deviation RDW Coeff of Jimmy Plt Count MPV Immature Gran % (Auto) Neut % (Auto) Lymph % (Auto) Antelope % (Auto) Eos % (Auto) Baso % (Auto) Absolute Neuts (auto) Absolute Lymphs (auto) Nucleated RBC % Differential Comment Diff Path Review Polychromasia Anisocytosis Microcytosis Macrocytosis Sodium Potassium Chloride Carbon Dioxide Anion Gap BUN Creatinine Estim Creat Clear Calc Est GFR (MDRD) Af Amer Est GFR (MDRD) Non-Af BUN/Creatinine Ratio Glucose Calcium Troponin I High Sens B-Natriuretic Peptide Blood Type A POSITIVE Antibody Screen NEGATIVE Crossmatch See Detail Radiography Chest X-Ray - ED: Read by ED Physician Diagnostic Testing: Clinical Impression(s) from Imaging Studies Chest X-Ray 08/09/22 17:45 IMPRESSION: No radiographic evidence of acute cardiopulmonary disease. Electronically Signed: Sumeet Hall MD at 17:57 EDT , I have personally reviewed the patient's chest x-ray. Chest x-ray is unremarkable for pulmonary edema, pneumothorax, pneumonia or focal cardiopulmonary abnormality. Discharge Plan Dx/Rx/DC Orders Clinical Impression: Anemia Disposition Disposition: Acute Care [facility]
--- NOTE | 2022-08-09 17:45 | RAD_ITS ---
INDICATION: Shortness of breath EXAMINATION/TECHNIQUE: X-RAY - XR Chest 2 Views COMPARISON: 06/07/2019 FINDINGS: LUNGS: No consolidation, edema or effusion. No pneumothorax. MEDIASTINUM AND CARDIOVASCULAR STRUCTURES: Cardiac silhouette not enlarged. Central airways and mediastinal contour are unremarkable. RAD/Chest PA and Lateral IMPRESSION: No radiographic evidence of acute cardiopulmonary disease. Electronically Signed: Sumeet Hall MD at 17:57 EDT ,
[2022-08-09 17:53] LABS: Absolute Lymphocyte Count 1.05 X10^3/uL (0.83-4.51); Absolute Neutrophil Count 1.1 X10^3/uL (2.0-7.7); Hematocrit 14.3 % (40-54); Lymphocyte # 1.05 X10^3/ul (0.83-4.51); Lymphocyte % 46.5 % (19-41); Mean Corp Hgb Conc 35.7 g/dL (32-36); Mean Corpuscular Hgb 45.9 pg (27.0-32.0); Mean Corpuscular Volume 128.8 fL (80-94); Mean Platelet Vol. 8.5 fl (6.2-12.0); Monocyte# 0.07 X10^3/uL; Monocyte% 3.1 % (0-10); NRBC Flagged by Analyzer 1.3 % (0-5); Neutrophil # 1.12 X10^3/uL (2.7-7.7); Neutrophil % 49.5 % (47-70); POSITIVE COUNT YES; POSITIVE MORPHOLOGY YES; Platelet Count 202 K/mm3 (150-450); RBC Distribution Width CV 20.3 % (11.6-14.6); RBC Distribution Width SD 86.2 fl (35.1-43.9); Red Blood Count 1.11 M/mm3 (4.6-6.2); White Blood Count 2.3 K/mm3 (4.4-11.0)
[2022-08-09 17:55] LABS: Differential Indicated SCAN CRITERIA MET
[2022-08-09 17:56] LABS: Hemoglobin 5.1 g/dL (13.0-16.5)
[2022-08-09 18:18] LABS: Anion Gap 8 (5-15); BUN 33 mg/dL (7-18); BUN/Creat Ratio 21.9 RATIO (10-20); Calcium,Total 8.8 mg/dL (8.5-10.1); Chloride 102 mmol/L (98-107); Creatinine, Serum 1.51 mg/dL (0.70-1.30); EST Glomerular Filtration Rate 50 mL/min (>60); Est Glom Filt Rate - Afr Amer 61 mL/min (>60); Estimated Creatinine Clearance 58.06 ml/min; Glucose 103 mg/dL (74-106); Potassium 4.5 mmol/L (3.5-5.1); Sodium Level 136 mmol/L (136-145); Troponin-I HS 10 pg/mL (3.0-78.0)
[2022-08-09 18:32] LABS: Anisocytosis 3+; Differential Comment SCANNED; Macrocytosis 2+; Microcytosis 1+
[2022-08-09 18:33] LABS: Polychromasia 1+
--- NOTE | 2022-08-09 20:44 | HP.PCM.HOS_ITS ---
HPI - General General Date of Admission: 08/09/22 Date of Service: 08/09/22 Chief Complaint: Dizziness, lightheadedness, Dyspnea, Fatigue. HPI Narrative The patient is a 61 y/o M w/ PMHx: Gout, GERD, Hx Nephrolithasis, CKD stage II, HTN, Hx prior prior chart reported Polycythemia vera but again hemoglobin has never been significantly elevated thus suspect this is an error, Chronic Thrombocytosis/thrombocythemia, Chronic anemia, History of Complicated diverticulitis s/p partial colectomy with concurrent hematoma with unclear exact resection reporting ~ 2 months of hospitalization with attempted re-anastomosis recently which unfortunately failed with ostomy intact who presents the [facility] ED on 08/09/22 with history of increasing fatigue, malaise, lightheadedness, dizziness, dyspnea which is significantly worsened with any exertion attempts over the last 1.5 to 2 weeks with history of more liquid stools over the last week however it seems to have firmed up but ED states he is unaware of the color as he is not been looking secondary his bag being opaque. He does state that he was concerned possibly for GI bleed as he has had this in the past and also concerned about recurrent diverticular issues but he denies any associated abdom inal pain. He denies any recent fevers, chills, nausea, emesis, body aches, headaches, cough. Work-up in the ED included T96.9, heart rate initially 105 with most recent repeat 77, BP 129/85 with most recent repeat 116/72, respiratory rate 22, 100% on room air, CBC with WBC 2.3, hemoglobin 5.1, MCV 128.8, platelet 202 with ANC 1.1, BMP with BUN/Nesbtit 33/1.51, troponin 10, BNP 17, type and cross 2 u PRBC performed per ED physician, influenza antigen positive for influenza B, chest x-ray with no acute cardiopulmonary findings, EKG with SR with no acute evidence of ischemia. [facility] Medical History (Updated 08/09/22 @ 19:[address] Vinita Mei MD) Benign essential hypertension Chronic leukopenia CKD (chronic kidney disease), stage II Essential (hemorrhagic) thrombocythemia History of diverticulitis History of GI bleed Thrombocytosis Home Medications hydroxyurea 500 mg capsule 2,000 mg PO DAILY cancer 05/11/13 [History Last Taken 06/06/19] allopurinol 300 mg tablet 300 mg PO DAILY 11/13/21 [History Last Taken Unknown] chlorthalidone 25 mg tablet 25 mg PO DAILY 11/13/21 [History Last Taken Unknown] Allergy/AdvReac Type Severity Reaction Status Date / Time No Known Allergies Allergy Verified 08/09/22 16:55 Family History (Updated 08/09/22 @ 19:[address] Vinita Mei MD) Mother Dementia Father CVA (cerebral vascular accident) Hypertension Surgical History (Updated 08/09/22 @ 19:[address] Vinita Mei MD) H/O neck surgery History of appendectomy History of partial colectomy History of tonsillectomy and adenoidectomy S/P colostomy Social History (Updated 08/09/22 @ 19:[address] Vinita Mei MD) household members: none Smoking Status: Never smoker alcohol intake: never substance use type: does not use ROS ROS Narrative Admission Review of Systems: CONSTITUTIONAL: No weight loss, fever, chills, + weakness or fatigue. HEENT: + LH/dizziness. Eyes: No visual loss, blurred vision, double vision or yellow sclerae. Ears, Nose, Throat: No hearing loss, sneezing, congestion, runny nose or sore throat. SKIN: No rash or itching, lesions, wounds. CARDIOVASCULAR: No chest pain, chest pressure or chest discomfort, palpitations, edema, orthopnea, syncopal events. RESPIRATORY: + shortness of breath, No cough or sputum, wheezing, hemoptysis. GASTROINTESTINAL: + Ostomy, loose stools above baseline, improving. No anorexia, nausea, vomiting, abdominal pain. Unclear if present: melena, BRBPR. GENITOURINARY: No dysuria, frequency, urgency or retention. NEUROLOGICAL: No headache, dizziness, syncope, paralysis, ataxia, numbness or tingling in the extremities, focal weakness, change in bowel or bladder control, seizure. MUSCULOSKELETAL: No muscle, back pain, joint pain or stiffness. HEMATOLOGIC: + anemia, bleeding or bruising. LYMPHATICS: No enlarged nodes. No history of splenectomy. PSYCHIATRIC: No history of depression or anxiety. ENDOCRINOLOGIC: No reports of sweating, cold or heat intolerance. No polyuria or polydipsia. ALLERGIES: No history of asthma, hives, eczema or rhinitis. Vital Signs Vital Signs Vital Signs: 08/09/22 16:56 08/09/22 17:02 08/09/22 17:41 Temperature 96.9 F L Temperature Source Temporal Pulse Rate 105 H 82 Respiratory Rate 22 H 14 Respiratory Effort Normal Non-Labored Respiratory Depth Normal Respiratory Pattern Normal Blood Pressure 129/85 H 116/74 Blood Pressure Mean 99 87 Pulse Ox 100 Oxygen Delivery Method Room Air Room Air 08/09/22 18:00 08/09/22 18:30 08/09/22 18:45 Temperature Temperature Source Pulse Rate 80 80 75 Respiratory Rate 15 18 16 Respiratory Effort Respiratory Depth Respiratory Pattern Blood Pressure 125/72 H 117/76 115/74 Blood Pressure Mean 86 89 87 Pulse Ox Oxygen Delivery Method 08/09/22 19:00 Temperature Temperature Source Pulse Rate 77 Respiratory Rate 15 Respiratory Effort Respiratory Depth Respiratory Pattern Blood Pressure 116/72 Blood Pressure Mean 84 Pulse Ox Oxygen Delivery Method Weight Weight: 173 lb 15.115 oz Body Mass Index (BMI) 22.9 Physical Exam Narrative Physical Examination: General: Awake, alert, oriented x 3 and cooperative, seated upright in the ED bed, fatigued but otherwise no acute distress. Skin: Normal color, normal turgor, no icterus, no cyanosis. HEENT: AT/NC, EOMI, PERRLA, mildly dry MM, no carotid bruits or JVD noted. Lungs: CTA bilaterally, moderate effort, no rales, ronchi or wheezing. Heart: Improved, currently regular rate and rhythm; no gallop, rub audible. Abdomen: Soft, NTTP, left lower quadrant ostomy in place, no overt distention noticed, significantly diffuse hyperactive bowel sounds, no obvious HSM. Extremities: No cyanosis, clubbing, or edema. Neurological: Patient awake, alert, oriented as noted, cognitive function intact; pupils equally reactive to light and accommodation, cranial nerves II-XI I grossly normal, moving all 4 extremities, no focal deficits, strength moderately global decrease secondary to acute presentation. Psychiatric: Affect appears mildly fatigued otherwise normal, no acute evidence of depressive or anxiety feelings. Results Lab / Micro Data Result Diagrams: 08/09/22 17:40 08/09/22 17:40 Labs: Laboratory Results - last 24 hr 08/09/22 17:40: WBC 2.3 L, RBC 1.11 L, Hgb 5.1 L*, Hct 14.3 L, MCV 128.8 H, MCH 45.9 H, MCHC 35.7, RDW Std Deviation 86.2 H, RDW Coeff of Jimmy 20.3 H, Plt Count 202, MPV 8.5, Immature Gran % (Auto) 0.900, Neut % (Auto) 49.5, Lymph % (Auto) 46.5 H, Emanuel % (Auto) 3.1, Eos % (Auto) 0.0, Baso % (Auto) 0.0, Absolute Neuts (auto) 1.1 L, Absolute Lymphs (auto) 1.05, Nucleated RBC % 1.3, Differential Comment SCANNED, Diff Path Review May foll, Polychromasia 1+, Anisocytosis 3+, Microcytosis 1+, Macrocytosis 2+ 08/09/22 17:40: Sodium 136, Potassium 4.5, Chloride 102, Carbon Dioxide 26.0, Anion Gap 8, BUN 33 H, Creatinine 1.51 H, Estim Creat Clear Calc 58.06, Est GFR (MDRD) Af Amer 61, Est GFR (MDRD) Non-Af 50 L, BUN/Creatinine Ratio 21.9 H, Glucose 103, Calcium 8.8, Troponin I High Sens 10 08/09/22 17:40: B-Natriuretic Peptide 17.0 08/09/22 18:29: Blood Type A POSITIVE, Antibody Screen NEGATIVE, Crossmatch See Detail Micro: Microbiology 08/09/22 17:45 Nasal Secretion SARS-CoV-2 & FLU Antigen (Rapid) - Final Influenzae B Radiology Impression Chest X-Ray 08/09/22 17:45 IMPRESSION: No radiographic evidence of acute cardiopulmonary disease. Electronically Signed: Sumeet Hall MD at 17:57 EDT , Assessment & Plan Assessment/Plan (1) Anemia: PLAN: Plan The patient is a 61 y/o M w/ PMHx: Gout, GERD, Hx Nephrolithasis, CKD stage II, HTN, Hx prior prior chart reported Polycythemia vera but again hemoglobin has never been significantly elevated thus suspect this is an error, Chronic Thrombocytosis/thrombocythemia, Chronic anemia, History of Complicated diverticulitis s/p partial colectomy with concurrent hematoma with unclear exact resection reporting ~ 2 months of hospitalization with attempted re-anastomosis recently which unfortunately failed with ostomy intact who presents the [facility] ED on 08/09/22 with history of increasing fatigue, malaise, lightheadedness, dizziness, dyspnea which is significantly worsened with any exertion attempts over the last 1.5 to 2 weeks with history of more liquid stools over the last week however it seems to have firmed up but ED states he is unaware of the color as he is not been looking secondary his bag being opaque. #1. Acute on Chronic Macrocytic anemia: Unclear exact etiology, possibly GI bleed, admission Hgb 5.1 with elevated MCV, prior to this patient 06/15/22 8.8, has been trending down since 04/13/22 noted to be 13.2 at that time but prior to this was low in the past as well, will admit to [facility] telemetry/PCU status given stable VS, obtain guiac, will cycle HH, allow clears with transition to NPO at midnight pending guiac, maintain on IV PPI, obtain GI consultation to be cautious, maintain on fall precautions, repeat CBC in AM, obtain Fe panel/vitamin B12/folic acid. #2. Acute Renal Insufficiency on CKD stage II secondary to #1, Hypoperfusion: Admission BUN/Cr 33/1.25, baseline Cr primarily 1.0-1.2, last noted 05/25/22 Cr 1.25, will continue treatment as noted as well as judicious hydration, repeat CMP in AM. #3. Chronic thrombocytosis/thrombocythemia, Chronic leukopenia, certainly complicated by acute presentation #1 as noted, Denies any specific Cancer History including Leukemia as noted in chart history prior: Admission CBC with WC 2.3, hemoglobin 5.1, MCV 120.8, platelet 202, last noted prior to this 06/15/2022 with WBC 2.8, hemoglobin 8.8, platelet 558 with ANC at that time 1.8 and lymphopenia present. Patient is from discussions likely on hydroxyurea for underlying chronic thrombocytosis/thrombocythemia. Liver profile ordered, Mag, Phos requested also. #4. Questionable Acute Influenza B Viral Syndrome: Patient aside from lightheadedness, dizziness and dyspnea has no other viral syndrome type symptoms, Will obtain full respiratory viral panel as suspect this is possibly a false positive. #5. Hypertension: Temporarily hold home chlorthalidone given renal insu fficiency, add back once appropriate, PRN hydralazine. #6. Gout: We will continue patient home allopurinol regimen. #7. History significant complicated diverticulitis with associated hematoma: Re quired transition from [facility] ED to tertiary facility with emergent surgery and eventual ostomy with prolonged hospitalization. Patient reports recent reanastomosis attempt unfortunately failed with removal of appendix at the same time. Ostomy in place in the left lower quadrant. #8. DVT prophylaxis: SCDs. #9. CODE status: Patient HCPDAMON is his brother and living will is currently in place. Discussed CODE status at length including difference between FULL code, DNR-CCA and DNR-CC status. Following discussions about the differences in these status, requested Full Code status. Advanced Care Planning Face to Face Time: 16 minutes. Admission Evaluation Time spent evaluating chart, patient history, patient evaluation, care planning and discussion with specialists: 75 minutes. Charges/Coding Visit Charges Inpatient E&M: 62996 Init Hosp L3 Procedures Hospitalists Procedures: 00481 Advncd Care Plan 30 Min
[2022-08-09 21:44] LABS: AST(SGOT) 89 U/L (15-37); Alanine Aminotransfer ALT/SGPT 18 U/L (16-61); Albumin, Serum 3.1 g/dL (3.2-5.0); Alkaline Phosphatase 122 U/L (45-117); Ferritin 437 ng/mL (26-388); Globulin 4.1 g/dL (2.2-4.2); Iron 218 ug/dL (65-175); Iron Binding Capacity,Total 302 ug/dL (250-450); Magnesium 1.7 mg/dL (1.6-2.6); PERCENT IRON SATURATION 72.2 % (15.0-55.0); Phosphorus 3.2 mg/dL (2.5-4.9); Protein, Total 7.2 g/dL (6.4-8.2)
[2022-08-09] MEDS: 0.9% Normal Saline 1,000 ML 100 ML IV (22:31)
[2022-08-09] MEDS: 0.9% Saline Lock 10 ML Syringe IV (22:31)
[2022-08-10] VITALS (20 sets, daily range): BP systolic 97–123; BP diastolic 62–82; PULSE 68–85; RESP 16–18; TEMP 36.6–37.8; O2SAT 95–100; BMI 22.6
[2022-08-10] MEDS: 0.9% Saline Lock 10 ML Syringe IV (04:08)
[2022-08-10 05:29] LABS: Absolute Lymphocyte Count 0.66 X10^3/uL (0.83-4.51); Absolute Neutrophil Count 0.8 X10^3/uL (2.0-7.7); Eosinophil# 0.01 X10^3/uL; Eosinophils% 0.6 % (0-5); Hematocrit 18.9 % (40-54); Hemoglobin 6.4 g/dL (13.0-16.5); Lymphocyte # 0.66 X10^3/ul (0.83-4.51); Lymphocyte % 42.9 % (19-41); Mean Corp Hgb Conc 33.9 g/dL (32-36); Mean Corpuscular Volume 109.2 fL (80-94); Mean Platelet Vol. 8.2 fl (6.2-12.0); Monocyte# 0.04 X10^3/uL; Monocyte% 2.6 % (0-10); NRBC Flagged by Analyzer 1.3 % (0-5); Neutrophil # 0.82 X10^3/uL (2.7-7.7); Neutrophil % 53.3 % (47-70); POSITIVE DIFFERENTIAL YES; POSITIVE MORPHOLOGY YES; Platelet Count 129 K/mm3 (150-450); RBC Distribution Width CV 27.7 % (11.6-14.6); RBC Distribution Width SD 90.7 fl (35.1-43.9); Red Blood Count 1.73 M/mm3 (4.6-6.2); White Blood Count 1.5 K/mm3 (4.4-11.0)
[2022-08-10 06:16] LABS: Differential Indicated SCAN CRITERIA MET
[2022-08-10 06:36] LABS: Anisocytosis 3+; Macrocytosis 1+; Microcytosis 1+; Platelet Estimate SLT DEC (ADEQ)
--- NOTE | 2022-08-10 06:44 | PCM.HOSP.N ---
Hospitalist Note Repeat Hgb 6.4, adding additional 2 u PRBC, plan repeat Hgb 1-2 hours following completion.
[2022-08-10 06:51] LABS: ALB/GLOB Ratio 0.8 RATIO (0.9-2.4); AST(SGOT) 16 U/L (15-37); Alanine Aminotransfer ALT/SGPT 12 U/L (16-61); Albumin, Serum 2.6 g/dL (3.2-5.0); Alkaline Phosphatase 105 U/L (45-117); Anion Gap 8 (5-15); BUN 28 mg/dL (7-18); BUN/Creat Ratio 22.8 RATIO (10-20); Calcium,Total 8.3 mg/dL (8.5-10.1); Chloride 107 mmol/L (98-107); Creatinine, Serum 1.23 mg/dL (0.70-1.30); EST Glomerular Filtration Rate 64 mL/min (>60); Est Glom Filt Rate - Afr Amer 77 mL/min (>60); Estimated Creatinine Clearance 70.28 ml/min; Globulin 3.1 g/dL (2.2-4.2); Glucose 94 mg/dL (74-106); Potassium 3.2 mmol/L (3.5-5.1); Protein, Total 5.7 g/dL (6.4-8.2); Sodium Level 139 mmol/L (136-145)
--- NOTE | 2022-08-10 07:51 | PCM.PN.HOSP ---
Reason for Visit Reason for Visit: Diagnoses Anemia, unspecified (08/09/22) Subjective Subjective Patient is a 61-year-old gentleman presenting with progressive shortness of breath and exertional fatigue hemoglobin on admission was 5.1 admitted to a monitored bed Objective Data Objective Data Vital Signs: Vital Signs Temp Pulse Resp BP Pulse Ox O2 Del Method 98.1 F 68 18 107/73 96 Room Air 08/10/22 04:08 08/10/22 04:08 08/10/22 04:08 08/10/22 04:08 08/10/22 04:08 08/10/22 04:08 Oxygen Delivery Method Room Air Weight: 77.8 kg Body Mass Index (BMI) 22.6 Intake & Output: Intake and Output for Last 24 Hours 08/08/22 08/09/22 08/10/22 23:59 23:59 23:59 Intake Total 110 / 110 800 / 800 Output Total 520 / 520 400 / 400 Balance -410 / -410 400 / 400 Lab / Micro Data Result Diagrams: 08/10/22 05:11 08/10/22 05:11 Labs: Laboratory Results - last 24 hr 08/09/22 17:40: WBC 2.3 L, RBC 1.11 L, Hgb 5.1 L*, Hct 14.3 L, MCV 128.8 H, MCH 45.9 H, MCHC 35.7, RDW Std Deviation 86.2 H, RDW Coeff of Jimmy 20.3 H, Plt Count 202, MPV 8.5, Immature Gran % (Auto) 0.900, Neut % (Auto) 49.5, Lymph % (Auto) 46.[address] H, [place] % (Auto) 3.1, Eos % (Auto) 0.0, Baso % (Auto) 0.0, Absolute Neuts (auto) 1.1 L, Absolute Lymphs (auto) 1.05, Nucleated RBC % 1.3, Differential Comment SCANNED, Diff Path Review May foll, Polychromasia 1+, Anisocytosis 3+, Microcytosis 1+, Macrocytosis 2+ 08/09/22 17:40: Sodium 136, Potassium 4.5, Chloride 102, Carbon Dioxide 26.0, Anion Gap 8, BUN 33 H, Creatinine 1.51 H, Estim Creat Clear Calc 58.06, Est GFR (MDRD) Af Amer 61, Est GFR (MDRD) Non-Af 50 L, BUN/Creatinine Ratio 21.9 H, Glucose 103, Calcium 8.8, Troponin I High Sens 10 08/09/22 17:40: B-Natriuretic Peptide 17.0 08/09/22 17:40: Phosphorus 3.2, Magnesium 1.7, Iron 218 H, TIBC 302, Iron Saturation 72.2 H, Ferritin 437 H, Total Bilirubin 3.30 H, Direct Bilirubin 0.10, AST 89 H, ALT 18, Alkaline Phosphatase 122 H, Total Protein 7.2, Albumin 3.1 L, Globulin 4.1 08/09/22 17:40: Folate 9.60 08/09/22 18:29: Blood Type A POSITIVE, Antibody Screen NEGATIVE, Crossmatch See Detail 08/10/22 05:11: WBC 1.5 L*, RBC 1.73 L, Hgb 6.4 L, Hct 18.9 L, MCV 109.2 H D, MCH 37.0 H, MCHC 33.9 D, RDW Std Deviation 90.7 H, RDW Coeff of Jimmy 27.7 H, Plt Count 129 L, MPV 8.2, Immature Gran % (Auto) 0.600, Neut % (Auto) 53.3, Lymph % (Auto) 42.[address] H, [place] % (Auto) 2.6, Eos % (Auto) 0.6, Baso % (Auto) 0.0, Absolute Neuts (auto) 0.8 L, Absolute Lymphs (auto) 0.66 L, Nucleated RBC % 1.3, Diff Path Review August, Platelet Estimate SLT DEC, Anisocytosis 3+, Microcytosis 1+, Macrocytosis 1+ 08/10/22 05:11: Sodium 139, Potassium 3.2 L, Chloride 107, Carbon Dioxide 24.0, Anion Gap 8, BUN 28 H, Creatinine 1.23, Estim Creat Clear Calc 70.28, Est GFR (MDRD) Af Amer 77, Est GFR (MDRD) Non-Af 64, BUN/Creatinine Ratio 22.8 H, Glucose 94, Calcium 8.3 L, Total Bilirubin 3.10 H, AST 16, ALT 12 L, Alkaline Phosphatase 105, Total Protein 5.7 L, Albumin 2.6 L, Globulin 3.1, Albumin/Globulin Ratio 0.8 L Micro: Microbiology 08/09/22 22:36 Stool Stool Occult Blood (CEM) - Final Occult Blood Positive 08/09/22 22:45 Mucosa - Nasopharyngeal Respiratory Panel (PCR) - Final 08/09/22 17:45 Nasal Secretion SARS-CoV-2 & FLU Antigen (Rapid) - Final Influenzae B Radiography Diagnostic Testing: Radiology Impression Chest X-Ray 08/09/22 17:45 IMPRESSION: No radiographic evidence of acute cardiopulmonary disease. Electronically Signed: Sumeet Hall MD at 17:57 EDT , Physical Exam Narrative GENERAL: cooperative HEENT: Atraumatic; normocephalic EYES; Anicteric, Normal Conjunctiva NECK; supple, normal thyroid, RESPIRATORY: Diminished to auscultation CARDIOVASCULAR: Regular S1 S2, GI: soft, normoactive bowel sounds, : No Renal angle tenderness; EXTREMITIES: No edema, no clubbing, MUSCULOSKELETAL: no muscle wasting NEURO: Awake; no lateralizing signs. SKIN: No Rash PSYCH; Flat affect Assessment & Plan Assessment/Plan (1) Anemia: PLAN: Plan Patient is a 61-year-old gentleman presenting with progressive shortness of breath and exertional fatigue hemoglobin on admission was 5.1 admitted to a monitored bed 1. Symptomatic anemia ? Patient has been admitted to a monitored bed order given for patient to be transfused with 2 unit PRBC 2. Leukopenia ? Etiology not clear WBC count on admission was2.3 down to 1.5 we will continue with monitoring with daily CBC with differential 3. Thrombocytopenia ?Patient platelet count on 06/15/2022 was 558 down to 129 5. Myeloproliferative disorder with chronic thrombocytosis -Patient was previously on Hydrea, patient pancytopenia may be related to treatment for his myeloproliferative disorder. Patient is apparently managed by an oncologist at [facility] and plan is for patient to follow-up with his oncologist once medically stable 6 .Acute influenza B infection ? plan is to treat symptomatic 7. Gout ? Patient is on allopurinol did continue 8.? COPD -Not in exacerbation 9.? Hypertension ~Blood pressure was low on admission antihypertensives subsequently held 10.? GERD - per History 11.? History of nephro lithiasis ?Currently asymptomatic 12. Hypokalemia -Corrected per protocol 13. History of complicated diverticulitis ? Resulting in resection and subsequent colostomy. Recent attempt at reversal was apparently unsuccessful DVT prophylaxis ? Bilateral SCDs only Time spent in the patient's overall evaluation,decision-making process, review of diagnostic data, adjustment of management, discussion with other providers, nursing nursing and ancillary staff involved in patient's care documentation, 55 Minutes Charges/Coding Visit Charges Inpatient E&M: 23175 Subs Hosp L3
[2022-08-10 08:14] LABS: Vitamin B12 395 pg/mL (211-911)
[2022-08-10] MEDS: 0.9% Normal Saline 1,000 ML 100 ML IV (09:45)
[2022-08-10] MEDS: Hydroxyurea 500 MG Capsule 2000 MG PO (09:47)
[2022-08-10] MEDS: Allopurinol 300 MG Tablet PO (09:47)
[2022-08-10] MEDS: Acetaminophen 325 MG Tablet 650 MG PO (09:47)
--- NOTE | 2022-08-10 11:45 | CASEMGMT ---
RN?CM?LABORATORY COORDINATOR?CM?to room to meet with patient for initial transition planning/care coordination?assessment.?RN?CM?introduced self and role at [facility].? Pt voices understanding and consents to?assessment?at this time.? Pt resting in bed in no distress at this time.? Pt is A/O at this time and answers all questions appropriately.?? Care providers, pharmacy, and demographics verified/updated at this time. PCP: Dr Butler Specialists:Dr Juno Baum-oncologist @ [facility] in [place] Preferred Pharmacy: [facility] Retail Insurance: [employer] Prescription Benefit:?Yes Living Will/HPOA:?Pt has LW and HCPOA, who is his brother, Efrain LNOK: brother/POA, Efrain. Pt has one biological child and 3 step-children. Living Arrangements: Lives alone in [facility] w/basement and 2 steps to enter. Bedroom upstairs and pt works from home in the basement. At baseline, pt able to navigate steps well, but recently has been so weak it has been difficult. Pt states he is already starting to feel stronger w/the blood transfusions he has received and anticipates he will be back to his baseline when he returns home. Pt indep w/ADL's and IADL's @ his baseline and manages his own medications and appts. Pt has a colostomy that he manages on his own and gets supplies for this via mail from [employer] Transportation:?Pt states drives self and states no transportation concerns at this time.? DME: ? Denies using any DME and denies needs.? HHC/SNF: No hx of either. Pt denies need for HHC and made aware, if once he returns home he is interested in it, to discuss this w/his PCP. Pt wishes to return home and states has no concerns with going home at time of discharge.? CM?to follow for any discharge planning/needs.? Pt voices no further concerns/needs at this time.? Advised pt to ask for?CM?if any further questions/concerns/needs arise.? Voices understanding. PLAN:??Home WAYNEiayamileth BSN?RN?CM
[2022-08-10 18:55] LABS: Absolute Lymphocyte Count 0.57 X10^3/uL (0.83-4.51); Absolute Neutrophil Count 0.9 X10^3/uL (2.0-7.7); Eosinophil# 0.01 X10^3/uL; Eosinophils% 0.6 % (0-5); Hematocrit 25.8 % (40-54); Hemoglobin 8.7 g/dL (13.0-16.5); Lymphocyte # 0.57 X10^3/ul (0.83-4.51); Mean Corp Hgb Conc 33.7 g/dL (32-36); Mean Corpuscular Hgb 33.5 pg (27.0-32.0); Mean Corpuscular Volume 99.2 fL (80-94); Mean Platelet Vol. 9.1 fl (6.2-12.0); Monocyte# 0.08 X10^3/uL; Monocyte% 5.2 % (0-10); NRBC Flagged by Analyzer 1.3 % (0-5); Neutrophil # 0.86 X10^3/uL (2.7-7.7); Neutrophil % 55.9 % (47-70); POSITIVE DIFFERENTIAL YES; POSITIVE MORPHOLOGY YES; Platelet Count 136 K/mm3 (150-450); RBC Distribution Width SD 71.6 fl (35.1-43.9); White Blood Count 1.5 K/mm3 (4.4-11.0)
[2022-08-10 18:57] LABS: Differential Indicated SCAN CRITERIA MET
[2022-08-10 19:30] LABS: Differential Comment SCANNED
[2022-08-11 04:09] VITALS: BP 115/59; PULSE 100; RESP 17; TEMP 37.1; O2SAT 97
[2022-08-11 06:00] VITALS: BMI 23.5
[2022-08-11 06:34] LABS: Absolute Lymphocyte Count 0.53 X10^3/uL (0.83-4.51); Absolute Neutrophil Count 0.8 X10^3/uL (2.0-7.7); Eosinophil# 0.01 X10^3/uL; Eosinophils% 0.7 % (0-5); Hematocrit 25.1 % (40-54); Hemoglobin 8.6 g/dL (13.0-16.5); Lymphocyte # 0.53 X10^3/ul (0.83-4.51); Lymphocyte % 36.6 % (19-41); Mean Corp Hgb Conc 34.3 g/dL (32-36); Mean Corpuscular Hgb 34.1 pg (27.0-32.0); Mean Corpuscular Volume 99.6 fL (80-94); Mean Platelet Vol. 9.6 fl (6.2-12.0); Monocyte# 0.07 X10^3/uL; Monocyte% 4.8 % (0-10); NRBC Flagged by Analyzer 0 % (0-5); Neutrophil # 0.82 X10^3/uL (2.7-7.7); Neutrophil % 56.5 % (47-70); POSITIVE COUNT YES; POSITIVE DIFFERENTIAL YES; POSITIVE MORPHOLOGY YES; Platelet Count 124 K/mm3 (150-450); RBC Distribution Width SD 76.5 fl (35.1-43.9); Red Blood Count 2.52 M/mm3 (4.6-6.2); White Blood Count 1.5 K/mm3 (4.4-11.0)
[2022-08-11 06:45] LABS: Differential Indicated SCAN CRITERIA MET
[2022-08-11 07:07] LABS: Anion Gap 8 (5-15); BUN 22 mg/dL (7-18); BUN/Creat Ratio 20.6 RATIO (10-20); Calcium,Total 8.4 mg/dL (8.5-10.1); Chloride 105 mmol/L (98-107); Creatinine, Serum 1.07 mg/dL (0.70-1.30); EST Glomerular Filtration Rate 75 mL/min (>60); Est Glom Filt Rate - Afr Amer 90 mL/min (>60); Estimated Creatinine Clearance 82.97 ml/min; Glucose 100 mg/dL (74-106); Magnesium 1.7 mg/dL (1.6-2.6); Phosphorus 2.8 mg/dL (2.5-4.9); Potassium 3.3 mmol/L (3.5-5.1); Sodium Level 138 mmol/L (136-145)
[2022-08-11 08:04] LABS: Anisocytosis 2+
--- NOTE | 2022-08-11 08:41 | PN.HOSP_ITS ---
Reason for Visit Reason for Visit: Diagnoses Anemia, unspecified (08/09/22) Subjective Subjective Patient hemoglobin up to 8.6 no change in WBC count or platelet count. Did discuss with patient. Patient will be discharged for him to follow-up with his primary oncologist at [facility] Objective Data Objective Data Vital Signs: Vital Signs Temp Pulse Resp BP Pulse Ox O2 Del Method 98.7 F 100 17 115/59 L 97 Room Air 08/11/22 04:09 08/11/22 04:09 08/11/22 04:09 08/11/22 04:09 08/11/22 04:09 08/11/22 04:09 Oxygen Delivery Method Room Air Weight: 80.8 kg Body Mass Index (BMI) 23.5 Intake & Output: Intake and Output for Last 24 Hours 08/09/22 08/10/22 08/11/22 23:59 23:59 23:59 Intake Total 110 / 110 4065 / 4065 Output Total 520 / 520 1200 / 1200 Balance -410 / -410 2865 / 2865 Medical Nutrition Assessment Dietitian: Malnutrition Criteria Met Start: 08/10/22 15:02 Freq: Status: Active Protocol: Document 08/10/22 15:02 (Rec: 08/10/22 15:02 [id number]) Nutrition Malnutrition Evidence of Malnutrition Exists Yes Malnutrition (severe): Chronic Evidenced By Suboptimal Energy Intake ( Severe),Weight Loss (Severe) Clinical Problem Chronic Disease or Condition Related Malnutrition Etiology related to inadequate energy intake d/t GI dysfunction Signs/Symptoms as evidenced by unintentional wt loss of 43.5#/20% x 8 months, estimated PO intake meeting <75% of estimated energy needs > 3 months Status Active Problem Recommendation Dietitian Recommendations/Changes continue regular diet as tolerated; will add 240mL ensure plus high protein TID w / meals given evidence of malnutrition Lab / Micro Data Result Diagrams: 08/11/22 05:55 08/11/22 05:55 Labs: Laboratory Results - last 24 hr 08/09/22 18:29: Crossmatch See Detail 08/10/22 18:45: WBC 1.5 L*, RBC 2.60 L, Hgb 8.7 L, Hct 25.8 L, MCV 99.2 H D, MCH 33.5 H, MCHC 33.7, RDW Std Deviation 71.6 H, RDW Coeff of Jimmy 25.0 H, Plt Count 136 L, MPV 9.1, Immature Gran % (Auto) 1.300 H, Neut % (Auto) 55.9, Lymph % (Auto) 37.0, [place] % (Auto) 5.2, Eos % (Auto) 0.6, Baso % (Auto) 0.0, Absolute Neuts (auto) 0.9 L, Absolute Lymphs (auto) 0.57 L, Nucleated RBC % 1.3, Differential Comment SCANNED, Diff Path Review August [facility] 08/11/22 05:55: WBC 1.5 L*, RBC 2.52 L, Hgb 8.6 L, Hct 25.1 L, MCV 99.6 H, MCH 34.1 H, MCHC 34.3, RDW Std Deviation 76.5 H, RDW Coeff of Jimmy 26.0 H, Plt Count 124 L, MPV 9.6, Immature Gran % (Auto) 1.400 H, Neut % (Auto) 56.5, Lymph % (Auto) 36.6, [place] % (Auto) 4.8, Eos % (Auto) 0.7, Baso % (Auto) 0.0, Absolute Neuts (auto) 0.8 L, Absolute Lymphs (auto) 0.53 L, Nucleated RBC % 0, Diff Path Review August, Anisocytosis 2+ 08/11/22 05:55: Sodium 138, Potassium 3.3 L, Chloride 105, Carbon Dioxide 25.0, Anion Gap 8, BUN 22 H, Creatinine 1.07, Estim Creat Clear Calc 82.97, Est GFR (MDRD) Af Amer 90, Est GFR (MDRD) Non-Af 75, BUN/Creatinine Ratio 20.6 H, Glucose 100, Calcium 8.4 L, Phosphorus 2.8, Magnesium 1.7 Micro: Microbiology 08/09/22 22:36 Stool Stool Occult Blood (CEM) - Final Occult Blood Positive 08/09/22 22:45 Mucosa - Nasopharyngeal Respiratory Panel (PCR) - Final 08/09/22 17:45 Nasal Secretion SARS-CoV-2 & FLU Antigen (Rapid) - Final Influenzae B Physical Exam Narrative GENERAL: cooperative HEENT: Atraumatic; normocephalic EYES; Anicteric, Normal Conjunctiva NECK; supple, normal thyroid, RESPIRATORY: Diminished to auscultation CARDIOVASCULAR: Regular S1 S2, GI: soft, normoactive bowel sounds, : No Renal angle tenderness; EXTREMITIES: No edema, no clubbing, MUSCULOSKELETAL: no muscle wasting NEURO: Awake; no lateralizing signs. SKIN: No Rash PSYCH; Flat affect Assessment & Plan Assessment/Plan (1) Anemia: PLAN: Plan Patient is a 61-year-old gentleman presenting with progressive shortness of breath and exertional fatigue hemoglobin on admission was 5.1 admitted to a monitored bed 1. Symptomatic anemia ? Patient has been admitted to a monitored bed order given for patient to be tra nsfused with 2 unit PRBC -08/11/2022;Patient hemoglobin up to 8.6 no change in WBC count or platelet count. Did discuss with patient. Patient will be discharged for him to follow-up with his primary oncologist at [facility] 2. Leukopenia ? Etiology not clear WBC count on admission was2.3 down to 1.5 we will continue with monitoring with daily CBC with differential 3. Thrombocytopenia ?Patient platelet count on 06/15/2022 was 558 down to 129 5. Myeloproliferative disorder with chronic thrombocytosis -Patient was previously on Hydrea, patient pancytopenia may be related to treatment for his myeloproliferative disorder. Patient is apparently managed by an oncologist at [facility] and plan is for patient to follow-up with his oncologist once medically stable 6 .Acute influenza B infection ? plan is to treat symptomatic 7. Gout ? Patient is on allopurinol did continue 8.? COPD -Not in exacerbation 9.? Hypertension ~Blood pressure was low on admission antihypertensives subsequently held 10.? GERD - per History 11.? History of nephro lithiasis ?Currently asymptomatic 12. Hypokalemia -Corrected per protocol 13. History of complicated diverticulitis ? Resulting in resection and subsequent colostomy. Recent attempt at reversal was apparently unsuccessful 14. DVT prophylaxis ? Bilateral SCDs only Time spent in the patient's overall evaluation,decision-making process, review of diagnostic data, adjustment of management, discussion with other providers, nursing nursing and ancillary staff involved in patient's care documentation, 35 Minutes Charges/Coding Visit Charges Inpatient E&M: 81708 Subs Hosp L2
[2022-08-11 09:21] VITALS: BP 119/80; PULSE 84; RESP 16; TEMP 36.6; O2SAT 99
[2022-08-11 09:21] LABS: Pathologist Review Reviewed
[2022-08-11 09:25] LABS: Pathologist Review Reviewed
[2022-08-11 09:29] VITALS: O2SAT 96
[2022-08-11] MEDS: Allopurinol 300 MG Tablet PO (09:30)
--- NOTE | 2022-08-11 10:55 | PCM.DC.SUM ---
Providers Date of Admission: 08/09/22 Date of Discharge: 08/11/22 Primary Care Physician: Dr. Alfreda Butler MD Consultations 08/09/22 22:03 Consult: Gastroenterology Routine Consulting Provider: [facility] Reason for Consult: Questionable GI bleed, acute anemia, hx prior GI bleed EMERGENT Consult: No MD Notified: Yes Date Notified: 08/09/22 Time Notified: 19:32 Method of Notification: Text Reason For Visit: ACUTE ANEMIA Diagnosis Discharge Diagnosis (1) Anemia: Status: Acute Code(s): D64.9 - Anemia, unspecified Plan Patient is a 61-year-old gentleman presenting with progressive shortness of breath and exertional fatigue hemoglobin on admission was 5.1 admitted to a monitored bed 1. Symptomatic anemia ? Patient has been admitted to a monitored bed order given for patient to be transfused with 2 unit PRBC -08/11/2022;Patient hemoglobin up to 8.6 no change in WBC count or platelet count. Did discuss with patient. Patient will be discharged for him to follow-up with his primary oncologist at [facility] 2. Leukopenia ? Etiology not clear WBC count on admission was2.3 down to 1.5 we will continue with monitoring with daily CBC with differential 3. Thrombocytopenia ?Patient platelet count on 06/15/2022 was 558 down to 129 5. Myeloproliferative disorder with chronic thrombocytosis -Patient was previously on Hydrea, patient pancytopenia may be related to treatment for his myeloproliferative disorder. Patient is apparently managed by an oncologist at [facility] and plan is for patient to follow-up with his oncologist once medically stable 6 .Acute influenza B infection ? plan is to treat symptomatic 7. Gout ? Patient is on allopurinol did continue 8.? COPD -Not in exacerbation 9.? Hypertension ~Blood pressure was low on admission antihypertensives subsequently held 10.? GERD - per History 11.? History of nephro lithiasis ?Currently asymptomatic 12. Hypokalemia -Corrected per protocol 13. History of complicated diverticulitis ? Resulting in resection and subsequent colostomy. Recent attempt at reversal was apparently unsuccessful 14. DVT prophylaxis ? Bilateral SCDs only Time spent in the patient's overall evaluation,decision-making process, review of diagnostic data, adjustment of management, discussion with other providers, nursing nursing and ancillary staff involved in patient's care documentation, 35 Minutes Medications at Discharge Home Medications hydroxyurea 500 mg capsule 2,000 mg PO DAILY cancer 05/11/13 allopurinol 300 mg tablet 300 mg PO DAILY 11/13/21 chlorthalidone 25 mg tablet 25 mg PO DAILY 11/13/21 Hospital Course Summary of Care Provided Minutes Spent on Discharge: 35 Physical Exam Narrative GENERAL: cooperative HEENT: Atraumatic; normocephalic EYES; Anicteric, Normal Conjunctiva NECK; supple, normal thyroid, RESPIRATORY: Diminished to auscultation CARDIOVASCULAR: Regular S1 S2, GI: soft, normoactive bowel sounds, : No Renal angle tenderness; EXTREMITIES: No edema, no clubbing, MUSCULOSKELETAL: no muscle wasting NEURO: Awake; no lateralizing signs. SKIN: No Rash PSYCH; Flat affect Medical Records Data Medical Nutrition Assessment Dietitian: Malnutrition Criteria Met Start: 08/10/22 15:02 Freq: Status: Active Protocol: Document 08/10/22 15:02 AG (Rec: 08/10/22 15:02 AG [id number]) Nutrition Malnutrition Evidence of Malnutrition Exists Yes Malnutrition (severe): Chronic Evidenced By Suboptimal Energy Intake ( Severe),Weight Loss (Severe) Clinical Problem Chronic Disease or Condition Related Malnutrition Etiology related to inadequate energy intake d/t GI dysfunction Signs/Symptoms as evidenced by unintentional wt loss of 43.5#/20% x 8 months, estimated PO intake meeting <75% of estimated energy needs > 3 months Status Active Problem Recommendation Dietitian Recommendations/Changes continue regular diet as tolerated; will add 240mL ensure plus high protein TID w / meals given evidence of malnutrition Weight / BMI Weight Weight: 80.8 kg Body Mass Index (BMI) 23.5 ABG / Lab / Microbiology Data Result Diagrams: 08/11/22 05:55 08/11/22 05:55 Laboratory: Laboratory Results - last 24 hr 08/09/22 17:40: Diff Path Review Reviewed 08/09/22 18:29: Crossmatch See Detail 08/10/22 05:11: Diff Path Review Reviewed 08/10/22 18:45: WBC 1.5 L*, RBC 2.60 L, Hgb 8.7 L, Hct 25.8 L, MCV 99.2 H D, MCH 33.5 H, MCHC 33.7, RDW Std Deviation 71.6 H, RDW Coeff of Jimmy 25.0 H, Plt Count 136 L, MPV 9.1, Immature Gran % (Auto) 1.300 H, Neut % (Auto) 55.9, Lymph % (Auto) 37.0, [place] % (Auto) 5.2, Eos % (Auto) 0.6, Baso % (Auto) 0.0, Absolute Neuts (auto) 0.9 L, Absolute Lymphs (auto) 0.57 L, Nucleated RBC % 1.3, Differential Comment SCANNED, Diff Path Review August [facility] 08/11/22 05:55: WBC 1.5 L*, RBC 2.52 L, Hgb 8.6 L, Hct 25.1 L, MCV 99.6 H, MCH 34.1 H, MCHC 34.3, RDW Std Deviation 76.5 H, RDW Coeff of Jimmy 26.0 H, Plt Count 124 L, MPV 9.6, Immature Gran % (Auto) 1.400 H, Neut % (Auto) 56.5, Lymph % (Auto) 36.6, [place] % (Auto) 4.8, Eos % (Auto) 0.7, Baso % (Auto) 0.0, Absolute Neuts (auto) 0.8 L, Absolute Lymphs (auto) 0.53 L, Nucleated RBC % 0, Diff Path Review August, Anisocytosis 2+ 08/11/22 05:55: Sodium 138, Potassium 3.3 L, Chloride 105, Carbon Dioxide 25.0, Anion Gap 8, BUN 22 H, Creatinine 1.07, Estim Creat Clear Calc 82.97, Est GFR (MDRD) Af Amer 90, Est GFR (MDRD) Non-Af 75, BUN/Creatinine Ratio 20.6 H, Glucose 100, Calcium 8.4 L, Phosphorus 2.8, Magnesium 1.7 Microbiology: Microbiology 08/09/22 22:36 Stool Stool Occult Blood (CEM) - Final Occult Blood Positive 08/09/22 22:45 Mucosa - Nasopharyngeal Respiratory Panel (PCR) - Final 08/09/22 17:45 Nasal Secretion SARS-CoV-2 & FLU Antigen (Rapid) - Final Influenzae B D/C Instructions Discharge Diet: No restrictions Discharge Activity: Return to Normal Activity Call your doctor if you observe: Fever of 101 or Higher, Shortness of breath, Fainting spells and Chest pain Meaningful Use Info Meaningful Use Diagnoses (Choose all that apply): None applicable Discharge Plan Admission Admit Date/Time: 08/09/22 19:27 Attending Provider: Anand Freire Primary Care Provider: Alfreda Butler Consulting Providers: Vinita Mei Discharge Orders/Prescriptions Prescriptions: Continued hydroxyurea 500 MG capsule 2,000 mg PO DAILY chlorthalidone 25 mg tablet 25 mg PO DAILY Label Comments: TAKE 1 TABLET BY MOUTH ONCE DAILY allopurinol 300 mg tablet 300 mg PO DAILY Label Comments: TAKE 1 TABLET BY MOUTH ONCE DAILY Referrals / Follow Up: Alfreda Butler MD [Primary Care Provider] - In 1 Week Disposition Disposition (needs filled in before D/C Order can be placed): Home, Self Care Charges/Coding Visit Charges Inpatient E&M: 67404 Disch Hosp >30min
[2022-08-11 11:05] VITALS: BP 119/80; PULSE 84; RESP 166; TEMP 36.6; O2SAT 99
[2022-08-12 09:50] LABS: Pathologist Review Reviewed
[2022-08-12 09:50] LABS: Pathologist Review Reviewed
== END 2022-08-11 11:57 | disposition home or self-care (01) | DRG 663 ==
LOC: ED 19:07 → PCU 19:53
PROVIDERS: Admitting Provider Family Medicine; Emergency Provider Emergency Medicine; PCP Internal Medicine; Visit Provider Internal Medicine
DX: D64.9 Anemia, unspecified (principal); D69.6 Thrombocytopenia, unspecified; J44.0 Chronic obstructive pulmonary disease with (acute) lower respiratory infection; D47.1 Chronic myeloproliferative disease; Z93.3 Colostomy status; M10.9 Gout, unspecified; N18.2 Chronic kidney disease, stage 2 (mild); I12.9 Hypertensive chronic kidney disease with stage 1 through stage 4 chronic kidney disease, or unspecified chronic kidney disease; E87.6 Hypokalemia; J10.1 Influenza due to other identified influenza virus with other respiratory manifestations; K21.9 Gastro-esophageal reflux disease without esophagitis; D72.819 Decreased white blood cell count, unspecified; D75.839 Thrombocytosis, unspecified
CPT/HCPCS: 36415; 71046; 80048; 80053; 80076; 82274; 82607; 82728; 82746; 83540; 83550; 83735; 83880; 84100; 84484; 85025; 86850; 86900; 86901; 86920; 86922; 87428; 87633; 93005; 97802; 99284; J7030; J7040; P9016; A4216

== ENCOUNTER → 2022-08-12 | Outpatient (CLI) | payer MEDICAID, SELFPAY | END | disposition home or self-care (01) | LOC: MTLAB 08:30 | PROVIDERS: PCP Internal Medicine; Referring Provider Urology; Visit Provider Urology | DX: R30.0 Dysuria (principal) | CPT/HCPCS: 87086; 87088 ==

== ENCOUNTER → 2022-08-24 | Outpatient (CLI) | payer MEDICAID, SELFPAY ==
--- NOTE | 2022-08-24 07:29 | US_ITS ---
INDICATION: ELEVATED T BILI EXAMINATION: Ultrasound US Abdomen Complete TECHNIQUE: Henley-scale and color Doppler imaging was performed of the abdomen. COMPARISON: None. FINDINGS: LIVER: 15.7 cm craniocaudal. There is increased coarsened echotexture. Echotexture. No focal hepatic lesion. No intrahepatic biliary ductal dilatation. There is no free fluid. GALLBLADDER AND BILIARY TREE: No shadowing gallstone, pericholecystic fluid or gallbladder wall thickening is demonstrated. The proximal common bile duct measures 5.8 mm which is within normal limits for the patient''s age. SONOGRAPHIC MAS''S SIGN: Negative. PANCREAS: Mildly hyperechoic likely due to fatty evolutional change. Suboptimal visualization of pancreatic tail. SPLEEN: The spleen is normal in size and homogeneous in echotexture. KIDNEYS: There is no hydronephrosis. No shadowing calculus, focal lesion, or perinephric collection is demonstrated. Variant lobulation both kidneys. VESSELS: Submitted longitudinal images of the intra-abdominal aorta demonstrate no gross abnormalities and are unremarkable. The IVC is patent. US/Abdomen Complete IMPRESSION: Borderline hepatomegaly. Fatty liver. Mildly hyperechoic pancreas likely due to fatty involutional change. Normal variant lobulation of the kidneys. Electronically Signed: Kai Frances MD, SHEEBA at 21:12 EDT ,
== END | disposition home or self-care (01) ==
LOC: US 07:28
PROVIDERS: PCP Internal Medicine; Visit Provider Internal Medicine Hematology & Oncology
DX: R17 Unspecified jaundice (principal); D47.3 Essential (hemorrhagic) thrombocythemia
CPT/HCPCS: 76700

== ENCOUNTER 2022-08-25 10:29 | Outpatient (RCR) | payer MEDICAID, SELFPAY ==
[2022-08-25 12:36] LABS: Absolute Neutrophil Count 1.6 X10^3/uL (2.0-7.7); Eosinophil# 0.02 X10^3/uL; Eosinophils% 0.7 % (0-5); Hematocrit 30.8 % (40-54); Hemoglobin 10.1 g/dL (13.0-16.5); Lymphocyte % 36.8 % (19-41); Mean Corp Hgb Conc 32.8 g/dL (32-36); Mean Corpuscular Hgb 35.3 pg (27.0-32.0); Mean Corpuscular Volume 107.7 fL (80-94); Mean Platelet Vol. 8.7 fl (6.2-12.0); Monocyte# 0.26 X10^3/uL; Monocyte% 8.7 % (0-10); NRBC Flagged by Analyzer 0 % (0-5); Neutrophil % 53.5 % (47-70); POSITIVE COUNT YES; POSITIVE MORPHOLOGY YES; RBC Distribution Width CV 28.1 % (11.6-14.6); RBC Distribution Width SD 99.1 fl (35.1-43.9); Red Blood Count 2.86 M/mm3 (4.6-6.2)
[2022-08-25 12:50] LABS: Differential Indicated SCAN CRITERIA MET; Platelet Count 816 K/mm3 (150-450)
[2022-08-25 13:28] LABS: Anisocytosis 2+; Polychromasia 1+
[2022-08-25 13:29] LABS: Platelet Estimate MKD INC (ADEQ)
[2022-08-26 10:27] LABS: Pathologist Review Reviewed
== END 2022-08-25 11:29 | disposition home or self-care (01) ==
LOC: MTLAB 10:29
PROVIDERS: PCP Internal Medicine; Referring Provider Internal Medicine Hematology & Oncology; Visit Provider Internal Medicine Hematology & Oncology
DX: D47.3 Essential (hemorrhagic) thrombocythemia (principal)
CPT/HCPCS: 36415; 85025

== ENCOUNTER 2022-09-23 14:59 | Outpatient (RCR) | payer MEDICAID, SELFPAY ==
[2022-09-08 10:39] LABS: Absolute Neutrophil Count 2.2 X10^3/uL (2.0-7.7); Basophil# 0.01 X10^3/uL; Basophil% 0.3 % (0-1); Eosinophil# 0.01 X10^3/uL; Eosinophils% 0.3 % (0-5); Hemoglobin 11.5 g/dL (13.0-16.5); Lymphocyte % 26.9 % (19-41); Mean Corp Hgb Conc 31.9 g/dL (32-36); Mean Corpuscular Hgb 37.1 pg (27.0-32.0); Mean Corpuscular Volume 116.1 fL (80-94); Mean Platelet Vol. 8.7 fl (6.2-12.0); Monocyte# 0.22 X10^3/uL; Monocyte% 6.6 % (0-10); NRBC Flagged by Analyzer 0 % (0-5); Neutrophil % 65.6 % (47-70); POSITIVE COUNT YES; POSITIVE MORPHOLOGY YES; White Blood Count 3.4 K/mm3 (4.4-11.0)
[2022-09-08 10:46] LABS: Differential Indicated SCAN CRITERIA MET
[2022-09-08 10:51] LABS: Platelet Count 777 K/mm3 (150-450)
[2022-09-08 13:36] LABS: Differential Comment SCANNED; Platelet Estimate MKD INC (ADEQ)
[2022-09-08 13:37] LABS: Anisocytosis 3+; Hypochromasia 1+; Macrocytosis 2+; Microcytosis 1+
[2022-09-09 13:59] LABS: Pathologist Review Reviewed
[2022-09-23 18:34] LABS: Absolute Lymphocyte Count 0.79 X10^3/uL (0.83-4.51); Absolute Neutrophil Count 2.4 X10^3/uL (2.0-7.7); Basophil# 0.01 X10^3/uL; Basophil% 0.3 % (0-1); Eosinophil# 0.04 X10^3/uL; Eosinophils% 1.1 % (0-5); Hematocrit 33.5 % (40-54); Hemoglobin 10.9 g/dL (13.0-16.5); Lymphocyte # 0.79 X10^3/ul (0.83-4.51); Lymphocyte % 22.7 % (19-41); Mean Corp Hgb Conc 32.5 g/dL (32-36); Mean Corpuscular Hgb 37.7 pg (27.0-32.0); Mean Corpuscular Volume 115.9 fL (80-94); Mean Platelet Vol. 8.6 fl (6.2-12.0); Monocyte# 0.27 X10^3/uL; Monocyte% 7.8 % (0-10); NRBC Flagged by Analyzer 0 % (0-5); Neutrophil # 2.35 X10^3/uL (2.7-7.7); Neutrophil % 67.5 % (47-70); POSITIVE MORPHOLOGY YES; Platelet Count 421 K/mm3 (150-450); Red Blood Count 2.89 M/mm3 (4.6-6.2); White Blood Count 3.5 K/mm3 (4.4-11.0)
[2022-09-23 18:50] LABS: Differential Indicated SCAN CRITERIA MET
[2022-09-23 19:14] LABS: Anisocytosis 2+; Macrocytosis 2+; Platelet Estimate SLT INC (ADEQ); Red Cell Morphology N CHROM NORMAL (NORM C&C)
== END 2022-09-23 18:00 | disposition home or self-care (01) ==
LOC: MTLAB 14:59
PROVIDERS: PCP Internal Medicine; Referring Provider Internal Medicine Hematology & Oncology; Visit Provider Internal Medicine Hematology & Oncology
DX: D47.3 Essential (hemorrhagic) thrombocythemia (principal)
CPT/HCPCS: 36415; 85025

== ENCOUNTER 2022-11-03 08:53 | Outpatient (RCR) | payer MEDICAID, SELFPAY ==
[2022-10-12 16:31] LABS: Absolute Lymphocyte Count 0.88 X10^3/uL (0.83-4.51); Absolute Neutrophil Count 2.7 X10^3/uL (2.0-7.7); Eosinophil# 0.03 X10^3/uL; Eosinophils% 0.8 % (0-5); Hematocrit 34.8 % (40-54); Hemoglobin 12.2 g/dL (13.0-16.5); Lymphocyte # 0.88 X10^3/ul (0.83-4.51); Lymphocyte % 23.3 % (19-41); Mean Corp Hgb Conc 35.1 g/dL (32-36); Mean Corpuscular Hgb 41.9 pg (27.0-32.0); Mean Corpuscular Volume 119.6 fL (80-94); Mean Platelet Vol. 8.9 fl (6.2-12.0); Monocyte# 0.18 X10^3/uL; Monocyte% 4.8 % (0-10); NRBC Flagged by Analyzer 0 % (0-5); Neutrophil # 2.66 X10^3/uL (2.7-7.7); Neutrophil % 70.6 % (47-70); POSITIVE MORPHOLOGY YES; Platelet Count 318 K/mm3 (150-450); Red Blood Count 2.91 M/mm3 (4.6-6.2); White Blood Count 3.8 K/mm3 (4.4-11.0)
[2022-10-12 17:04] LABS: Differential Indicated SCAN CRITERIA MET
[2022-10-12 17:05] LABS: Differential Comment SCANNED
[2022-10-12 17:07] LABS: Anisocytosis 2+; Macrocytosis 1+; Microcytosis 1+
[2022-11-03 10:08] LABS: Absolute Lymphocyte Count 1.01 X10^3/uL (0.83-4.51); Absolute Neutrophil Count 1.9 X10^3/uL (2.0-7.7); Basophil# 0.01 X10^3/uL; Basophil% 0.3 % (0-1); Eosinophil# 0.01 X10^3/uL; Eosinophils% 0.3 % (0-5); Hematocrit 38.3 % (40-54); Hemoglobin 13.6 g/dL (13.0-16.5); Lymphocyte # 1.01 X10^3/ul (0.83-4.51); Lymphocyte % 31.5 % (19-41); Mean Corp Hgb Conc 35.5 g/dL (32-36); Mean Corpuscular Hgb 44.3 pg (27.0-32.0); Mean Corpuscular Volume 124.8 fL (80-94); Mean Platelet Vol. 8.5 fl (6.2-12.0); Monocyte# 0.17 X10^3/uL; Monocyte% 5.3 % (0-10); NRBC Flagged by Analyzer 0.6 % (0-5); Neutrophil # 1.91 X10^3/uL (2.7-7.7); Neutrophil % 59.5 % (47-70); POSITIVE MORPHOLOGY YES; Platelet Count 479 K/mm3 (150-450); RBC Distribution Width CV 20.8 % (11.6-14.6); Red Blood Count 3.07 M/mm3 (4.6-6.2); White Blood Count 3.2 K/mm3 (4.4-11.0)
[2022-11-03 10:34] LABS: Differential Indicated SCAN CRITERIA MET; RBC Distribution Width SD 101.6 fl (35.1-43.9)
[2022-11-03 10:35] LABS: Anisocytosis 2+
[2022-11-03 10:59] LABS: ALB/GLOB Ratio 0.8 RATIO (0.9-2.4); AST(SGOT) 25 U/L (15-37); Alanine Aminotransfer ALT/SGPT 23 U/L (16-61); Albumin, Serum 3.1 g/dL (3.2-5.0); Alkaline Phosphatase 95 U/L (45-117); Anion Gap 5 (5-15); BUN 16 mg/dL (7-18); Chloride 103 mmol/L (98-107); Creatinine, Serum 1.23 mg/dL (0.70-1.30); EST Glomerular Filtration Rate 64 mL/min (>60); Est Glom Filt Rate - Afr Amer 77 mL/min (>60); Globulin 3.7 g/dL (2.2-4.2); Glucose 87 mg/dL (74-106); Potassium 3.9 mmol/L (3.5-5.1); Protein, Total 6.8 g/dL (6.4-8.2); Sodium Level 138 mmol/L (136-145)
== END 2022-11-07 18:00 | disposition home or self-care (01) ==
LOC: MTLAB 08:53
PROVIDERS: PCP Internal Medicine; Referring Provider Internal Medicine Hematology & Oncology; Visit Provider Internal Medicine Hematology & Oncology
DX: D47.3 Essential (hemorrhagic) thrombocythemia (principal)
CPT/HCPCS: 36415; 80053; 85025

== ENCOUNTER 2022-12-08 09:38 | Outpatient (RCR) | payer MEDICAID, SELFPAY ==
[2022-11-15 12:43] LABS: Absolute Lymphocyte Count 1.23 X10^3/uL (0.83-4.51); Basophil# 0.03 X10^3/uL; Basophil% 0.7 % (0-1); Eosinophil# 0.05 X10^3/uL; Eosinophils% 1.1 % (0-5); Hematocrit 38.4 % (40-54); Hemoglobin 13.7 g/dL (13.0-16.5); Lymphocyte # 1.23 X10^3/ul (0.83-4.51); Lymphocyte % 27.2 % (19-41); Mean Corp Hgb Conc 35.7 g/dL (32-36); Mean Corpuscular Hgb 45.7 pg (27.0-32.0); Mean Platelet Vol. 8.9 fl (6.2-12.0); Monocyte% 4.4 % (0-10); NRBC Flagged by Analyzer 0 % (0-5); Neutrophil # 2.99 X10^3/uL (2.7-7.7); Neutrophil % 65.9 % (47-70); POSITIVE MORPHOLOGY YES; Platelet Count 496 K/mm3 (150-450); RBC Distribution Width CV 18.4 % (11.6-14.6); RBC Distribution Width SD 86.6 fl (35.1-43.9); White Blood Count 4.5 K/mm3 (4.4-11.0)
[2022-11-15 12:46] LABS: Differential Indicated SCAN CRITERIA MET
[2022-11-15 13:29] LABS: Anisocytosis 2+; Differential Comment SCANNED; Macrocytosis 3+; Polychromasia RARE
[2022-11-15 13:32] LABS: Stomatocyte RARE
[2022-12-08 12:04] LABS: Absolute Lymphocyte Count 0.85 X10^3/uL (0.83-4.51); Absolute Neutrophil Count 2.6 X10^3/uL (2.0-7.7); Basophil# 0.02 X10^3/uL; Basophil% 0.5 % (0-1); Eosinophil# 0.04 X10^3/uL; Eosinophils% 1.1 % (0-5); Hematocrit 37.7 % (40-54); Hemoglobin 13.7 g/dL (13.0-16.5); Lymphocyte # 0.85 X10^3/ul (0.83-4.51); Lymphocyte % 22.7 % (19-41); Mean Corp Hgb Conc 36.3 g/dL (32-36); Mean Corpuscular Hgb 47.4 pg (27.0-32.0); Mean Corpuscular Volume 130.4 fL (80-94); Mean Platelet Vol. 8.8 fl (6.2-12.0); Monocyte# 0.18 X10^3/uL; Monocyte% 4.8 % (0-10); NRBC Flagged by Analyzer 0 % (0-5); Neutrophil # 2.63 X10^3/uL (2.7-7.7); Neutrophil % 70.4 % (47-70); POSITIVE MORPHOLOGY YES; Platelet Count 509 K/mm3 (150-450); RBC Distribution Width CV 14.5 % (11.6-14.6); RBC Distribution Width SD 70.6 fl (35.1-43.9); Red Blood Count 2.89 M/mm3 (4.6-6.2); White Blood Count 3.7 K/mm3 (4.4-11.0)
[2022-12-08 12:07] LABS: Differential Indicated SCAN CRITERIA MET
[2022-12-08 12:34] LABS: Anisocytosis 1+
== END 2022-12-08 18:00 | disposition home or self-care (01) ==
LOC: MTLAB 09:38
PROVIDERS: PCP Internal Medicine; Referring Provider Internal Medicine Hematology & Oncology; Visit Provider Internal Medicine Hematology & Oncology
DX: D47.3 Essential (hemorrhagic) thrombocythemia (principal)
CPT/HCPCS: 36415; 85025

== ENCOUNTER 2023-11-03 09:37 | Emergency (ER) | payer MEDICAID, SELFPAY ==
[2023-11-03 09:37] VITALS: BP 154/105; PULSE 78; RESP 14; TEMP 36.1; O2SAT 98; BMI 24.7
--- NOTE | 2023-11-03 10:19 | EDS_ITS ---
HPI History of Present Illness Chief Complaint: Other, Pain/Inj Detail of Chief Complaint: Mouth sores Informant: patient Narrative Narrative: Patient presents with painful sores in his mouth that been ongoing for the past 3 months. He went to see his primary care physician today, but his insurance had recently changed and his physician no longer covers him his insurance. 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 He is not sure if this is related. He has not seen a dentist. [facility] Medical History PAD (peripheral artery disease) History of diverticulitis History of GI bleed Chronic leukopenia CKD (chronic kidney disease), stage II Essential (hemorrhagic) thrombocythemia Thrombocytosis Benign essential hypertension Home Medications ?Medication ?Instructions ?Recorded ?Last Taken ?Type hydroxyurea 500 mg capsule 2,000 mg PO DAILY cancer 05/11/13 06/06/19 History allopurinol 300 mg tablet 300 mg PO DAILY 11/13/21 Unknown History chlorthalidone 25 mg tablet 25 mg PO DAILY 11/13/21 Unknown History BMX 180 mL suspension 10 ml PO BID PRN PRN pain #180 mL 11/03/23 Unknown Rx chlorhexidine gluconate 0.12 % 15 ml mucous membrane BID #600 mL 11/03/23 U nknown Rx mouthwash (Peridex) oxycodone 5 mg tablet 5 mg PO Q6H PRN pain 3 days #10 11/03/23 Unknown Rx tabs penicillin V potassium 500 mg 500 mg PO 4X/DAY #40 tabs 11/03/23 Unknown Rx tablet Allergy/AdvReac Type Severity Reaction Status Date / Time No Known Allergies Allergy Verified 11/03/23 09:37 Family History Mother Dementia Father CVA (cerebral vascular accident) Hypertension Surgical History History of appendectomy S/P colostomy History of partial colectomy H/O neck surgery History of tonsillectomy and adenoidectomy Social History household members: none Smoking Status: Never smoker alcohol intake: never substance use type: does not use ROS ROS ED Constitutional Constitutional ED: Denies chills or fever(s) Eyes Eyes: Denies discharge from eye(s) ENT ENT ED: Reports other Details: Oral sores ; Denies discharge from eye(s), rhinorrhea or sore throat Cardiovascular Cardiovascular: Denies chest pain Respiratory/Chest Respiratory/Chest: Denies cough or dyspnea Gastrointestinal Gastrointestinal: Denies abdominal pain, nausea or vomiting Genitourinary Genitourinary ED: Denies dysuria Musculoskeletal Musculoskeletal: Denies back pain or extremity pain Integumentary Denies Abrasions or rash Neurologic Neurologic: Denies headache(s) or weakness Psychiatric Psychiatric: Denies anxiety or depression Allergic/Immunologic Allergic/Immunologic ED: Denies lip swelling or urticaria EXAM Physical Exam Const Vital Signs: 11/03/23 09:37 11/03/23 09:44 11/03/23 10:37 Temperature 96.9 F L 97.6 F L Temperature Source Temporal Pulse Rate 78 64 Respiratory Rate 14 18 Respiratory Effort Normal Respiratory Pattern Normal Blood Pressure 154/105 H 126/78 H Blood Pressure Mean 121 94 Pulse Ox 98 99 Oxygen Delivery Method Room Air Positive well nourished and well developed General Appearance ED: well developed HEENT Reports moist mucous membranes HEENT Narrative: Few small ulcerations noted along the anterior gumline just inferior to the central incisors. There is a larger, 1 cm diameter ulcerated lesion on the left lateral soft palate. Edges are erythematous. Lesion is well-demarcated. Eyes EOMs intact bilaterally Chest Wall inspection of chest normal and palpation of chest normal Resp normal respiratory effort and clear to auscultation bilaterally Cardio regular rate and regular rhythm GI non-tender Palpation: soft Extremity normal to inspection Neuro oriented x3 and no sensory deficits noted Motor Exam: strength 5/5 throughout Psych mental status grossly normal MDM MDM MDM Narrative Medical decision making narrative: I did recommend patient follow-up with a dentist to be evaluated for potential oral cancers. Lesion appears to be consistent with a large aphthous ulcer, although symptoms been ongoing for 3 months. This may be because of his blood disorder that causes slow healing. Patient will be given analgesics as well as prescriptions for Peridex and BMX mouthwashes. Addendum: Prescription for oxycodone was initially sent to the pharmacy. I was notified that on [facility] report he had just received a prescription for 20 tabs of tramadol 2 days ago. Oxycodone will be canceled and he will receive the antibiotics and mouthwashes. Discharge Plan Triage Chief Complaint: Other, Pain/Inj ED Provider: Nilsa Bowie Dx/Rx/DC Orders Clinical Impression: Aphthous ulcer of mouth Instructions: ED Canker Sore Prescriptions: New chlorhexidine gluconate [Peridex] 0.12 % mouthwash 15 ml mucous membrane BID Qty: 600 0RF BMX 180 mL suspension 10 ml PO BID PRN PRN (Reason: pain) Qty: 180 0RF Rx Instructions: Benadryl 12.5 mg/5 mL oral elixir 60 mL; Maalox Maximum Strength 400 mg-400 mg-40 mg/5 mL oral suspension 60 mL; Xylocaine Viscous 2 % mucosal solution 60 mL; Per 180 mL penicillin V potassium 500 mg tablet 500 mg PO 4X/DAY Qty: 40 0RF oxycodone 5 mg tablet 5 mg PO Q6H PRN (Reason: pain) 3 Days Qty: 10 0RF No Action hydroxyurea 500 MG capsule 2,000 mg PO DAILY chlorthalidone 25 mg tablet 25 mg PO DAILY Patient Comments: TAKE 1 TABLET BY MOUTH ONCE DAILY allopurinol 300 mg tablet 300 mg PO DAILY Patient Comments: TAKE 1 TABLET BY MOUTH ONCE DAILY Primary Care Provider: Alfreda Butler Referrals: Alfreda Butler MD [Primary Care Provider] - Activity Restrictions/Additional Instructions: Please call your insurance company to determine what local primary care physicians are covered on your insurance. Also, please follow-up with your dentist. Print Language: Lithuanian Disposition Disposition: Home, Self Care Discharge Date/Time: 11/03/23 10:43
[2023-11-03 10:37] VITALS: BP 126/78; PULSE 64; RESP 18; TEMP 36.4; O2SAT 99
== END 2023-11-03 10:43 | disposition home or self-care (01) ==
PROVIDERS: Emergency Provider Emergency Medicine; PCP Internal Medicine; Visit Provider Emergency Medicine
DX: K12.0 Recurrent oral aphthae (principal); I12.9 Hypertensive chronic kidney disease with stage 1 through stage 4 chronic kidney disease, or unspecified chronic kidney disease; N18.2 Chronic kidney disease, stage 2 (mild); Z87.19 Personal history of other diseases of the digestive system
CPT/HCPCS: 99282

== ENCOUNTER 2023-11-24 13:17 | Outpatient (RCR) | payer MEDICAID, SELFPAY ==
[2023-11-24 17:40] LABS: Absolute Lymphocyte Count 0.56 X10^3/uL (0.83-4.51); Absolute Neutrophil Count 3.8 X10^3/uL (2.0-7.7); Basophil# 0.01 X10^3/uL; Basophil% 0.2 % (0-1); Eosinophil# 0.01 X10^3/uL; Eosinophils% 0.2 % (0-5); Hematocrit 38.3 % (40-54); Hemoglobin 13.9 g/dL (13.0-16.5); Lymphocyte # 0.56 X10^3/ul (0.83-4.51); Lymphocyte % 12.3 % (19-41); Mean Corp Hgb Conc 36.3 g/dL (32-36); Mean Corpuscular Hgb 48.3 pg (27.0-32.0); Mean Platelet Vol. 7.9 fl (6.2-12.0); Monocyte# 0.21 X10^3/uL; Monocyte% 4.6 % (0-10); NRBC Flagged by Analyzer 0 % (0-5); Neutrophil # 3.76 X10^3/uL (2.7-7.7); Neutrophil % 82.3 % (47-70); POSITIVE COUNT YES; POSITIVE DIFFERENTIAL YES; POSITIVE MORPHOLOGY YES; RBC Distribution Width CV 14.2 % (11.6-14.6); RBC Distribution Width SD 71.7 fl (35.1-43.9); Red Blood Count 2.88 M/mm3 (4.6-6.2); White Blood Count 4.6 K/mm3 (4.4-11.0)
[2023-11-24 17:53] LABS: AST(SGOT) 46 U/L (15-37); Alanine Aminotransfer ALT/SGPT 31 U/L (16-61); Albumin, Serum 3.2 g/dL (3.2-5.0); Alkaline Phosphatase 73 U/L (45-117); Anion Gap 7 (5-15); BUN 21 mg/dL (7-18); BUN/Creat Ratio 18.8 RATIO (10-20); Calcium,Total 8.6 mg/dL (8.5-10.1); Chloride 100 mmol/L (98-107); Creatinine, Serum 1.12 mg/dL (0.70-1.30); EST Glomerular Filtration Rate 71 mL/min (>60); Est Glom Filt Rate - Afr Amer 85 mL/min (>60); Globulin 3.2 g/dL (2.2-4.2); Glucose 73 mg/dL (74-106); Potassium 3.4 mmol/L (3.5-5.1); Protein, Total 6.4 g/dL (6.4-8.2); Sodium Level 135 mmol/L (136-145)
[2023-11-24 18:02] LABS: Platelet Count 854 K/mm3 (150-450)
[2023-11-24 18:03] LABS: Differential Indicated SCAN CRITERIA MET
[2023-11-24 18:32] LABS: Anisocytosis 2+; Differential Comment SCANNED
[2023-11-24 18:33] LABS: Platelet Estimate MKD INC (ADEQ)
[2023-11-27 10:31] LABS: Pathologist Review Reviewed
== END 2023-11-24 18:00 | disposition home or self-care (01) ==
LOC: MTLAB 13:17
PROVIDERS: PCP Internal Medicine; Referring Provider Internal Medicine Hematology & Oncology; Visit Provider Internal Medicine Hematology & Oncology
DX: D47.3 Essential (hemorrhagic) thrombocythemia (principal)
CPT/HCPCS: 36415; 80053; 85025

== ENCOUNTER 2023-12-25 09:58 | Outpatient (RCR) | payer MEDICAID, SELFPAY ==
[2023-12-25 12:38] LABS: Erythrocyte Sedimentation Rate 11 mm/hr (0-20)
[2023-12-25 13:24] LABS: Rheumatoid Factor < 10.0 IU/mL (<15)
[2023-12-25 13:35] LABS: HIV - WCH Non-Reactive (Nonreactive); Hepatitis B Surface Antibody Non-Reactive; Hepatitis B Surface Antigen Non-Reactive (Nonreactive); Hepatitis C Antibody Non-Reactive (Nonreactive)
[2023-12-25 14:53] LABS: Hematocrit 32.9 % (40-54); Hemoglobin 12.3 g/dL (13.0-16.5); Mean Corp Hgb Conc 37.4 g/dL (32-36); Mean Corpuscular Hgb 49.8 pg (27.0-32.0); Mean Corpuscular Volume 133.2 fL (80-94); Mean Platelet Vol. 8.4 fl (6.2-12.0); POSITIVE COUNT YES; POSITIVE DIFFERENTIAL YES; POSITIVE MORPHOLOGY YES; Platelet Count 361 K/mm3 (150-450); RBC Distribution Width CV 15.6 % (11.6-14.6); RBC Distribution Width SD 75.6 fl (35.1-43.9); Red Blood Count 2.47 M/mm3 (4.6-6.2); White Blood Count 3.4 K/mm3 (4.4-11.0)
[2023-12-25 14:55] LABS: Differential Indicated MANUAL DIFF
[2023-12-25 15:11] LABS: ALB/GLOB Ratio 0.9 RATIO (0.9-2.4); AST(SGOT) 67 U/L (15-37); Alanine Aminotransfer ALT/SGPT 44 U/L (16-61); Albumin, Serum 3.2 g/dL (3.2-5.0); Alkaline Phosphatase 83 U/L (45-117); Anion Gap 12 (5-15); BUN 14 mg/dL (7-18); BUN/Creat Ratio 13.1 RATIO (10-20); Calcium,Total 8.8 mg/dL (8.5-10.1); Chloride 97 mmol/L (98-107); Creatinine, Serum 1.07 mg/dL (0.70-1.30); EST Glomerular Filtration Rate 74 mL/min (>60); Est Glom Filt Rate - Afr Amer 90 mL/min (>60); Globulin 3.4 g/dL (2.2-4.2); Glucose 92 mg/dL (74-106); Potassium 2.8 mmol/L (3.5-5.1); Protein, Total 6.6 g/dL (6.4-8.2); Sodium Level 137 mmol/L (136-145)
[2023-12-25 15:32] LABS: Differential Comment MANUAL
[2023-12-25 15:46] LABS: Anisocytosis 3+; Basophil 1 % (0-1); Lymphocyte 20 % (19-41); Monocyte 1 % (0-10); Neutrophil-Segmented 78 % (47-70); Total Cells Counted 100 (MANUAL DIFF)
[2023-12-25 15:47] LABS: Hypersegmented Neutrophils 1+; Platelet Morphology LARGE; Vacuolated Cells 1+
[2023-12-25 15:48] LABS: Red Cell Morphology N CHROM NORMAL (NORM C&C)
[2023-12-25 15:49] LABS: Platelet Estimate ADEQUATE (ADEQ)
[2023-12-25 15:50] LABS: Polychromasia 1+
[2023-12-25 15:53] LABS: Absolute Neutrophil Count 2.6 X10^3/uL (2.0-7.7)
[2023-12-25 15:54] LABS: Absolute Lymphocyte Count 0.67 X10^3/uL (0.83-4.51)
[2023-12-26 05:07] LABS: Hepatitis A IgM Antibody Positive (Negative); Hepatitis B Core AB IgM Negative (Negative)
[2023-12-26 16:10] LABS: Anti-Nuclear Antibody Test Negative (.)
[2023-12-27 08:21] LABS: Pathologist Review Reviewed
== END 2023-12-25 18:00 | disposition home or self-care (01) ==
LOC: MTLAB 09:58
PROVIDERS: PCP Internal Medicine; Referring Provider Internal Medicine Hematology & Oncology; Visit Provider Internal Medicine Hematology & Oncology
DX: D47.3 Essential (hemorrhagic) thrombocythemia (principal); L97.912 Non-pressure chronic ulcer of unspecified part of right lower leg with fat layer exposed
CPT/HCPCS: 36415; 80053; 85025; 85652; 86038; 86140; 86431; 86703; 86705; 86706; 86709; 86803; 87340

== ENCOUNTER → 2023-12-29 | Outpatient (CLI) | payer MEDICAID, SELFPAY ==
[2023-12-29 15:18] LABS: Absolute Lymphocyte Count 0.38 X10^3/uL (0.83-4.51); Absolute Neutrophil Count 2.2 X10^3/uL (2.0-7.7); Basophil# 0.01 X10^3/uL; Basophil% 0.4 % (0-1); Hematocrit 34.1 % (40-54); Hemoglobin 11.9 g/dL (13.0-16.5); Lymphocyte # 0.38 X10^3/ul (0.83-4.51); Lymphocyte % 13.5 % (19-41); Mean Corp Hgb Conc 34.9 g/dL (32-36); Mean Corpuscular Hgb 50.2 pg (27.0-32.0); Mean Corpuscular Volume 143.9 fL (80-94); Mean Platelet Vol. 8.2 fl (6.2-12.0); Monocyte# 0.21 X10^3/uL; Monocyte% 7.5 % (0-10); NRBC Flagged by Analyzer 0 % (0-5); Neutrophil % 78.2 % (47-70); POSITIVE DIFFERENTIAL YES; POSITIVE MORPHOLOGY YES; Platelet Count 376 K/mm3 (150-450); RBC Distribution Width CV 17.2 % (11.6-14.6); RBC Distribution Width SD 90.8 fl (35.1-43.9); Red Blood Count 2.37 M/mm3 (4.6-6.2); White Blood Count 2.8 K/mm3 (4.4-11.0)
[2023-12-29 15:20] LABS: Differential Indicated SCAN CRITERIA MET
[2023-12-29 15:48] LABS: ALB/GLOB Ratio 0.9 RATIO (0.9-2.4); AST(SGOT) 35 U/L (15-37); Alanine Aminotransfer ALT/SGPT 33 U/L (16-61); Albumin, Serum 3.1 g/dL (3.2-5.0); Alkaline Phosphatase 85 U/L (45-117); Anion Gap 8 (5-15); BUN 40 mg/dL (7-18); BUN/Creat Ratio 24.5 RATIO (10-20); Calcium,Total 8.9 mg/dL (8.5-10.1); Chloride 106 mmol/L (98-107); Creatinine, Serum 1.63 mg/dL (0.70-1.30); EST Glomerular Filtration Rate 46 mL/min (>60); Est Glom Filt Rate - Afr Amer 55 mL/min (>60); Globulin 3.4 g/dL (2.2-4.2); Glucose 86 mg/dL (74-106); Magnesium 1.5 mg/dL (1.6-2.6); Potassium 3.7 mmol/L (3.5-5.1); Protein, Total 6.5 g/dL (6.4-8.2); Sodium Level 139 mmol/L (136-145)
[2023-12-29 16:08] LABS: Anisocytosis 2+; Differential Comment SCANNED
[2023-12-29 16:09] LABS: Macrocytosis 2+
== END | disposition home or self-care (01) ==
LOC: MTLAB 11:37
PROVIDERS: PCP Internal Medicine; Referring Provider Internal Medicine Hematology & Oncology; Visit Provider Internal Medicine Hematology & Oncology
DX: D47.3 Essential (hemorrhagic) thrombocythemia (principal); R17 Unspecified jaundice; K57.20 Diverticulitis of large intestine with perforation and abscess without bleeding
CPT/HCPCS: 36415; 80053; 83735; 85025

== ENCOUNTER → 2023-12-29 | Outpatient (CLI) | payer MEDICAID, SELFPAY ==
--- NOTE | 2023-12-29 10:22 | US_ITS ---
STUDY: ABDOMINAL ULTRASOUND REASON FOR EXAM: Male, 63 years old. ELEVATED BILIRIBUN TECHNIQUE: Transabdominal ultrasound was performed with real-time and static garcia scale imaging. TECHNICAL QUALITY: Limited. Examination limited due to a combination of factors including obesity and bowel gas. COMPARISON: None. FINDINGS: Liver: The liver measures 15.1 cm. There is increased echogenicity consistent with fatty infiltration. The bile ducts are within normal limits. There is hepatic color flow. The direction of portal flow is hepatopetal. There is no demonstrated mass lesion. Portal vein measurement: Gallbladder: Normal distended gallbladder. The gallbladder wall measures 2 mm. There is a negative sonographic Wu''s sign. There is no pericholecystic fluid. There are no gallstones. Common Bile Duct (C.B.D.): The common bile duct measures 5 mm. Pancreas: There is nonvisualization of the pancreas. Spleen: There is splenomegaly. The spleen measures 15.6 cm. Right Kidney: Normal size of the right kidney. The right kidney measures 10.0 cm. Normal renal cortex. The right cortex measures 1.1 cm. There is no demonstrated renal mass or cyst. There is no right hydronephrosis. Left Kidney: Normal size of the left kidney. The left kidney measures 10.4 cm. Normal renal cortex. The left cortex measures 1.5 cm. There is no demonstrated renal mass or cyst. There is no left hydronephrosis. Aorta: 2.2 cm I.V.C.: The IVC is patent. There is no ascites. US/Abdomen Complete IMPRESSION: Limited as above. No definite acute or significant abnormality seen. Electronically Signed: Trey Fabian MD at 16:41 EDT ,
== END | disposition home or self-care (01) ==
PROVIDERS: PCP Internal Medicine; Referring Provider Internal Medicine Hematology & Oncology; Visit Provider Internal Medicine Hematology & Oncology
DX: D47.3 Essential (hemorrhagic) thrombocythemia (principal); R17 Unspecified jaundice; K57.20 Diverticulitis of large intestine with perforation and abscess without bleeding
CPT/HCPCS: 36415; 76700; 80053; 83735; 85025

== ENCOUNTER 2024-01-10 21:18 | Emergency (ER) | payer MEDICAID, SELFPAY ==
[2024-01-10 21:24] VITALS: BP 164/119; PULSE 104; RESP 18; TEMP 36.6; O2SAT 100; BMI 39.3
--- NOTE | 2024-01-10 21:25 | ED.VIS.LOWEX ---
HPI History of Present Illness Chief Complaint: Lower Extremity Injury Informant: patient Narrative Narrative: 63-year-old male presents by EMS for wound bleeding at the biopsy site on his right lower leg. He states he was at the driver license reviewing officer in [place] today and they did a biopsy of a chronic ulceration on his leg and it has not stopped bleeding. He states he is in a lot of pain there as well, in the surrounding area due to nerve damage from remote burn that caused the ulcer. He denies any systemic symptoms. 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 He states he is on hydroxyurea for that, no anticoagulants or antiplatelets. [facility] Medical History PAD (peripheral artery disease) History of diverticulitis History of GI bleed Chronic leukopenia CKD (chronic kidney disease), stage II Essential (hemorrhagic) thrombocythemia Thrombocytosis Benign essential hypertension Home Medications ?Medication ?Instructions ?Recorded ?Last Taken ?Type hydroxyurea 500 mg capsule 2,000 mg PO DAILY cancer 05/11/13 06/06/19 History allopurinol 300 mg tablet 300 mg PO DAILY 11/13/21 Unknown History chlorthalidone 25 mg tablet 25 mg PO DAILY 11/13/21 Unknown History BMX 180 mL suspension 10 ml PO BID PRN PRN pain #180 mL 11/03/23 Unknown Rx chlorhexidine gluconate 0.12 % 15 ml mucous membrane BID #600 mL 11/03/23 Unknown Rx mouthwash (Peridex) oxycodone 5 mg tablet 5 mg PO Q6H PRN pain 3 days #10 11/03/23 Unknown Rx tabs penicillin V potassium 500 mg 500 mg PO 4X/DAY #40 tabs 11/03/23 Unknown Rx tablet Allergy/AdvReac Type Severity Reaction Status Date / Time No Known Allergies Allergy Verified 01/10/24 21:19 Family History Mother Dementia Father CVA (cerebral vascular accident) Hypertension Surgical History History of appendectomy S/P colostomy History of partial colectomy H/O neck surgery History of tonsillectomy and adenoidectomy Social History household members: none Smoking Status: Never smoker alcohol intake: never substance use type: does not use ROS ROS ED Constitutional Constitutional ED: Denies chills or fever(s) Musculoskeletal Musculoskeletal: Reports extremity pain; Denies neck pain Integumentary Reports wounds; Denies Abrasions or rash Neurologic Neurologic: Denies paresthesias or weakness Hematologic/Lymphatic Hematologic/Lymphatic: Reports easy bleeding EXAM Physical Exam Const Vital Signs: 01/10/24 21:24 01/10/24 23:18 Temperature 97.8 F Temperature Source Oral Pulse Rate 104 H 81 Respiratory Rate 18 18 Blood Pressure 164/119 H 148/84 H Blood Pressure Mean 134 105 Pulse Ox 100 98 Oxygen Delivery Method Room Air Room Air Positive well nourished and well developed General Appearance ED: well developed and NAD Neck full ROM and supple Back/Spine normal ROM and normal to inspection Extremity Extremity Narrative: 4 Kerlix wraps wrapped around a wound on the right lower leg, no active bleeding blood blood saturating through them. Unable to remove the pad against the skin due to patient withdrawing his leg and the yelling in pain, limiting the exam but there is no active bleeding from beneath the pad. There is some clotted blood visible around it. However after giving the patient an injection of pain medication and reexamining, he already started to remove the pad and now it is bleeding. There is a superficial broad based ulceration about 6 cm in length in the anterior right lower leg with some erythema around that the patient states it is stable and chronic and tender consistent with nerve pain/burning which is why he is in so much pain. There is a single small subcentimeter hole/biopsy site where the oozing of blood is emanating from no pulsatile bleeding. It is relatively dark blood. Putting pressure on this creates a situation where there is no active bleeding from anywhere else in the area, confirming this is the only site that is actively bleeding (and the rest is clotted blood). Neuro oriented x3, no focal motor deficits and no sensory deficits noted Sensorium / Orientation: alert Psych mental status grossly normal and thought process normal Skin Skin Narrative: Ulcerated wound right lower leg see above Rashes: no rashes MDM MDM MDM Narrative Medical decision making narrative: I checked his blood counts, hemoglobin 11.6 similar to prior measurement, stable. He does have a high platelet count which she has had before, consistent with his history of thrombocytosis. Initially I applied a dressing designed to apply pressure to that pinpoint area after applying Surgicel to the bleeding biopsy site at the superiormost aspect of the wound, as well as an Adaptic nonstick dressing to the rest of the ulcer after gently removing some of the clotted blood but leaving the scab intact. He bled through this so we replaced it with a new piece of Surgicel, and I revise the dressing again designed to place pressure only on that 1 spot. A tight Kerlix wrap was placed around it, verifying that he still has distal perfusion. After observation. This has provided good hemostasis and left in place for him to be discharged home with along with the rest of the Surgicel and instructions for use. Lab Data Attestation: I reviewed the patient's lab results. Labs: Laboratory Results - last 24 hr 01/10/24 21:58 WBC 8.5 RBC 2.46 L Hgb 11.6 L Hct 33.1 L MCV 134.6 H MCH 47.2 H MCHC 35.0 RDW Std Deviation 67.8 H RDW Coeff of Jimmy 13.5 Plt Count 1524 H* MPV 8.0 Diff Path Review August Discharge Plan Triage Chief Complaint: Lower Extremity Injury ED Provider: Memo Fonseca Dx/Rx/DC Orders Clinical Impression: Postoperative hemorrhage of skin following dermatologic procedure Instructions: ED Post Op Wound Check, Bleeding Prescriptions: No Action hydroxyurea 500 MG capsule 2,000 mg PO DAILY chlorthalidone 25 mg tablet 25 mg PO DAILY Patient Comments: TAKE 1 TABLET BY MOUTH ONCE DAILY allopurinol 300 mg tablet 300 mg PO DAILY Patient Comments: TAKE 1 TABLET BY MOUTH ONCE DAILY chlorhexidine gluconate [Peridex] 0.12 % mouthwash 15 ml mucous membrane BID Qty: 600 0RF BMX 180 mL suspension 10 ml PO BID PRN PRN (Reason: pain) Qty: 180 0RF Rx Instructions: Benadryl 12.5 mg/5 mL oral elixir 60 mL; Maalox Maximum Strength 400 mg-400 mg-40 mg/5 mL oral suspension 60 mL; Xylocaine Viscous 2 % mucosal solution 60 mL; Per 180 mL penicillin V potassium 500 mg tablet 500 mg PO 4X/DAY Qty: 40 0RF oxycodone 5 mg tablet 5 mg PO Q6H PRN (Reason: pain) 3 Days Qty: 10 0RF Primary Care Provider: Chris Fam Referrals: Alfreda Butler MD [Non-Staff] - Print Language: Macanese Disposition Disposition: Home, Self Care
[2024-01-10] MEDS: morphine 10 MG/ML Syringe IM (21:30)
[2024-01-10] MEDS: Ondansetron ODT 4 MG Tablet 8 MG PO (21:30)
[2024-01-10 22:03] LABS: Hematocrit 33.1 % (40-54); Hemoglobin 11.6 g/dL (13.0-16.5); Mean Corpuscular Hgb 47.2 pg (27.0-32.0); Mean Corpuscular Volume 134.6 fL (80-94); POSITIVE COUNT YES; POSITIVE MORPHOLOGY YES; RBC Distribution Width CV 13.5 % (11.6-14.6); RBC Distribution Width SD 67.8 fl (35.1-43.9); Red Blood Count 2.46 M/mm3 (4.6-6.2); White Blood Count 8.5 K/mm3 (4.4-11.0)
[2024-01-10 22:05] LABS: Platelet Count 1524 K/mm3 (150-450)
[2024-01-10 22:24] LABS: Scan Indicated on CBC? Y/N YES- FLAGS NOTED
[2024-01-10 23:18] VITALS: BP 148/84; PULSE 81; RESP 18; O2SAT 98
[2024-01-10 23:57] VITALS: BP 139/91; PULSE 80; RESP 18; TEMP 36.6; O2SAT 95
[2024-01-11 13:43] LABS: Pathologist Review Reviewed
== END 2024-01-10 23:58 | disposition home or self-care (01) ==
PROVIDERS: Emergency Provider Emergency Medicine; PCP Student in an Organized Health Care Education/Training Program; Referring Provider Emergency Medicine; Visit Provider Emergency Medicine
DX: L76.21 Postprocedural hemorrhage of skin and subcutaneous tissue following a dermatologic procedure (principal); L97.919 Non-pressure chronic ulcer of unspecified part of right lower leg with unspecified severity; N18.2 Chronic kidney disease, stage 2 (mild); I12.9 Hypertensive chronic kidney disease with stage 1 through stage 4 chronic kidney disease, or unspecified chronic kidney disease; Z87.19 Personal history of other diseases of the digestive system
CPT/HCPCS: 85027; 96372; 99282

== ENCOUNTER 2024-02-02 09:22 | Outpatient (RCR) | payer MEDICAID, SELFPAY ==
[2024-01-17 12:40] LABS: Absolute Lymphocyte Count 1.11 X10^3/uL (0.83-4.51); Absolute Neutrophil Count 9.1 X10^3/uL (2.0-7.7); Basophil# 0.03 X10^3/uL; Basophil% 0.3 % (0-1); Eosinophil# 0.01 X10^3/uL; Eosinophils% 0.1 % (0-5); Hematocrit 34.2 % (40-54); Lymphocyte # 1.11 X10^3/ul (0.83-4.51); Lymphocyte % 9.9 % (19-41); Mean Corp Hgb Conc 35.1 g/dL (32-36); Mean Platelet Vol. 8.4 fl (6.2-12.0); Monocyte# 0.55 X10^3/uL; Monocyte% 4.9 % (0-10); NRBC Flagged by Analyzer 0.9 % (0-5); Neutrophil # 9.12 X10^3/uL (2.7-7.7); Neutrophil % 80.9 % (47-70); POSITIVE COUNT YES; POSITIVE MORPHOLOGY YES; RBC Distribution Width CV 14.5 % (11.6-14.6); RBC Distribution Width SD 70.8 fl (35.1-43.9); Red Blood Count 2.61 M/mm3 (4.6-6.2); White Blood Count 11.3 K/mm3 (4.4-11.0)
[2024-01-17 12:52] LABS: Differential Indicated SCAN CRITERIA MET; Platelet Count 2310 K/mm3 (150-450)
[2024-01-17 13:17] LABS: ALB/GLOB Ratio 0.9 RATIO (0.9-2.4); AST(SGOT) 58 U/L (15-37); Alanine Aminotransfer ALT/SGPT 60 U/L (16-61); Albumin, Serum 3.1 g/dL (3.2-5.0); Alkaline Phosphatase 90 U/L (45-117); Anion Gap 13 (5-15); BUN 29 mg/dL (7-18); BUN/Creat Ratio 22.5 RATIO (10-20); Calcium,Total 8.6 mg/dL (8.5-10.1); Chloride 100 mmol/L (98-107); Creatinine, Serum 1.29 mg/dL (0.70-1.30); EST Glomerular Filtration Rate 60 mL/min (>60); Est Glom Filt Rate - Afr Amer 73 mL/min (>60); Globulin 3.3 g/dL (2.2-4.2); Glucose 95 mg/dL (74-106); Protein, Total 6.4 g/dL (6.4-8.2); Sodium Level 136 mmol/L (136-145)
[2024-01-17 13:50] LABS: Anisocytosis 1+; Differential Comment SCANNED
[2024-01-17 13:51] LABS: Stomatocyte 1+
[2024-01-18 13:55] LABS: Pathologist Review Reviewed
[2024-02-02 10:28] LABS: Absolute Lymphocyte Count 0.72 X10^3/uL (0.83-4.51); Absolute Neutrophil Count 5.2 X10^3/uL (2.0-7.7); Basophil# 0.01 X10^3/uL; Basophil% 0.2 % (0-1); Hematocrit 24.4 % (40-54); Lymphocyte # 0.72 X10^3/ul (0.83-4.51); Lymphocyte % 11.8 % (19-41); Mean Corp Hgb Conc 32.8 g/dL (32-36); Mean Corpuscular Volume 134.1 fL (80-94); Mean Platelet Vol. 8.5 fl (6.2-12.0); Monocyte# 0.16 X10^3/uL; Monocyte% 2.6 % (0-10); NRBC Flagged by Analyzer 0.7 % (0-5); Neutrophil # 5.17 X10^3/uL (2.7-7.7); Neutrophil % 84.9 % (47-70); POSITIVE COUNT YES; POSITIVE MORPHOLOGY YES; Platelet Count 1070 K/mm3 (150-450); RBC Distribution Width CV 17.6 % (11.6-14.6); Red Blood Count 1.82 M/mm3 (4.6-6.2); White Blood Count 6.1 K/mm3 (4.4-11.0)
[2024-02-02 10:35] LABS: Differential Indicated SCAN CRITERIA MET
[2024-02-02 11:00] LABS: Anisocytosis 3+; Platelet Estimate MKD INC (ADEQ); Polychromasia 2+; Stomatocyte 1+
[2024-02-02 11:01] LABS: Schistocytes RARE
[2024-02-02 11:16] LABS: ALB/GLOB Ratio 1.1 RATIO (0.9-2.4); AST(SGOT) 27 U/L (15-37); Alanine Aminotransfer ALT/SGPT 33 U/L (16-61); Albumin, Serum 3.1 g/dL (3.2-5.0); Alkaline Phosphatase 79 U/L (45-117); Anion Gap 12 (5-15); BUN 29 mg/dL (7-18); BUN/Creat Ratio 13.8 RATIO (10-20); Calcium,Total 8.2 mg/dL (8.5-10.1); Chloride 97 mmol/L (98-107); EST Glomerular Filtration Rate 34 mL/min (>60); Est Glom Filt Rate - Afr Amer 41 mL/min (>60); Globulin 2.8 g/dL (2.2-4.2); Glucose 86 mg/dL (74-106); Potassium 3.1 mmol/L (3.5-5.1); Protein, Total 5.9 g/dL (6.4-8.2); Sodium Level 134 mmol/L (136-145)
[2024-02-05 14:12] LABS: Pathologist Review Reviewed
== END 2024-02-02 18:00 | disposition home or self-care (01) ==
LOC: MTLAB 09:22
PROVIDERS: PCP Student in an Organized Health Care Education/Training Program; Referring Provider Internal Medicine Hematology & Oncology; Visit Provider Internal Medicine Hematology & Oncology
DX: D47.3 Essential (hemorrhagic) thrombocythemia (principal)
CPT/HCPCS: 36415; 80053; 85025